=== PATIENT | female | born 1945 | race Caucasian/White ===

== ENCOUNTER 2024-01-30 16:47 | Inpatient (IN) | payer OTHER ==
[~2024-01-30] VITALS: Ht 165.1 cm; Wt 52.6 kg
[2024-01-30 00:42] VITALS: BP 101/48; PULSE 96; RESP 20; TEMP 98.4; O2SAT 93
[2024-01-30 18:01] LABS: Hematocrit 25.6 % (36.0-46.0); Hemoglobin 8.6 g/dL (12.2-16.2); Mean Corpuscular Hemoglobin 29.3 pg (28.0-32.0); Mean Corpuscular Hgb Conc. 33.6 g/dL (32.0-36.0); Mean Corpuscular Volume 87.4 fL (80.0-100.0); Platelet Count (auto) 245 10^3/uL (140-450); Red Blood Cells 2.93 10^6/uL (4.0-5.20); Red Cell Distribution Width 15.2 % (11.8-14.3); White Blood Cell 16.5 10^3/uL (4.4-10.8)
--- NOTE | 2024-01-30 18:04 | ED.PDOC ---
History of Present Illness HPI Comments This is an 78-year-old female who comes in with chief complaint of generalized weakness. The patient states that the symptoms have been going on since Friday. The patient had some diarrhea that has been persistent all day. She did notice some blood in her stool. She is complaining of some abdominal pain and body pain. EN route, the paramedics stated that the patient's oxygen saturation was 81% on room air. The patient was having some shortness a breath as well as a cough. The patient was then placed on 8 L of a non-rebreather by the paramedics and her oxygen saturation went up to 99%. EN route, the patient's Accu-Chek was also 281. There is no fever. Upon arrival, the patient is able to give us her medical history. She states that she also was diagnosed with liver cancer in February of last year. She lives by herself but she was staying with one of her family members when she was transported to our facility. Chief Complaint: General Weakness Time Seen by MD: 17:16 Reviewed Notes: Nurses Notes, [place] Brushing Machine Operator Notes, Medications, Allergies (No allergies to medications) Information Source: Patient, Emergency Med Personnel Mode of Arrival: EMS Severity: Moderate Timing: Days Duration: Since onset Prehospital treatment: Oxygen Past Medical History PAST MEDICAL HISTORY: Cancer (Renal cancer, liver cancer), High Lipids, HTN Surgical History (Other): Left nephrectomy GREEN BUILDING ARCHITECT History: No Pertinent GREEN BUILDING ARCHITECT History Family History Family History: No family hx of Cancer, No family hx of DM, No family hx of HTN Social History Smoker: Non-Smoker Alcohol: Denies ETOH Use Drugs: Denies Drug Use Lives In: Home Constitutional: reports: weakness; denies: chills, diaphoresis, fatigue, fever, malaise, sweats, others EENTM: denies: blurred vision, double vision, ear bleeding, ear discharge, ear drainage, ear pain, ear ringing, eye pain, eye redness, hearing loss, mouth pain, mouth swelling, nasal discharge, nose bleeding, nose congestion, nose pain, photophobia, tearing, throat pain, throat swelling, voice changes, others Respiratory: reports: cough, shortness of breath; denies: hemoptysis, orthopnea, SOB at rest, SOB with excertion, stridor, wheezing, others Cardiovascular: denies: chest pain, dizzy spells, diaphoresis, Dyspnea on exertion, edema, irregular heart beat, left arm pain, lightheadedness, palpitations, PND, syncope, others Gastrointestinal: reports: diarrhea; denies: abdomen distended, abdominal pain, blood streaked bowels, constipated, dysphagia, difficulty swallowing, hemat emesis, melena, nausea, poor appetite, poor fluid intake, rectal bleeding, rectal pain, vomiting, others Genitourinary: denies: abnormal vagina bleeding, burning, dyspareunia, dysuria, flank pain, frequency, hematuria, incontinence, pain, , vagina discharge, urgency, others Neurological: denies: dizziness, fainting, headache, left sided numbness, left sided weakness, numbness, paresthesia, pre-existing deficit, right sided numbness, right sided weakness, seizure, speech problems, tingling, tremors, weakness, others Musculoskeletal: denies: back pain, gout, joint pain, joint swelling, muscle pain, muscle stiffness, neck pain, others Integumetry: denies: bruises, change in color, change in hair/nails, dryness, laceration, lesions, lumps, rash, wounds, others Allergic/Immunocompromised: denies: Difficulty Healing, Frequent Infections, Hives, Itching, others Hematologic/Lymphatic: denies: anemia, blood clots, easy bleeding, easy bruising, swollen glands, others Endocrine: denies: excessive hunger, excessive sweating, excessive thirst, excessive urination, flushing, intolerance to cold, intolerance to heat, unexplained weight gain, unexplained weight loss, others Psychiatric: denies: anxiety, bipolar disorder, depression, hopeless, panic disorder, schizophrenia, sleepless, suicidal, others Physical Exam General Appearance: Moderate Distress HEENT: Pale Conjuntivae (L), Pale Conjuntivae (R), Pharynx Normal, TMs Normal Neck: Full Range of Motion, Non-Tender, Normal, Normal Inspection Respiratory: Chest Non-Tender, Lungs Clear, No Accessory Muscle Use, No Respiratory Distress, Normal Breath Sounds Cardiovascular: No Edema, No JVD, No Murmur, No Gallop, Normal Peripheral Pulses, Regular Rate/Rhythm Breast Exam: Deferred Gastrointestinal: No Organomegaly, Non Tender, No Pulsatile Mass, Normal Bowel Sounds, Soft Genitalia: Deferred Pelvic: Deferred Rectal: Deferred Extremities: No calf tenderness, Normal capillary refill, No pedal edema, Pedal edema Musculoskeletal : Apperance: Normal Neurologic: Alert, central stores attendant II-XII nml as Tested, Motor Weakness, Normal Affect, Normal Mood, No Sensory Deficits Cerebellar Function: Normal Reflexes: Normal Skin: Dry, Normal Color, Warm Lymphatic: No Adenopathy Was a procedure done? Was a procedure done?: No EKG EKG : Pulse Rate (adult): 74 [place]: Normal Cardiac Rhythm: NSR Block: None Hypertrophy: LVH ST: Nonsp Differential Dx Considerations may include: Electrolyte imbalance, metabolic acidosis, hyperkalemia, dehydration X-Ray, Labs, Meds, VS Vital Signs Date Time Temp Pulse Resp B/P (MAP) Pulse Ox O2 Delivery O2 Flow Rate FiO2 01/30/24 19:56 122/57 01/30/24 19:25 97.5 74 20 112/57 (75) 92 97.5 01/30/24 19:25 74 20 92 Non-Rebreather 8 N/A 01/30/24 18:46 72 15 97 Non-Rebreather 8 N/A 01/30/24 18:28 74 01/30/24 18:00 72 15 113/52 (72) 97 01/30/24 17:00 97.7 74 19 134/64 (87) 99 01/30/24 16:48 74 Lab Test 01/30/24 19:10 01/30/24 18:58 01/30/24 18:27 01/30/24 17:43 Range/Units Urine Color Light-yellow Yellow Urine Clarity Clear Clear Urine pH 5.0 5.0-9.0 Urine Specific [place] 1.015 1.001-1.035 Urine Protein Negative Negative Urine Ketones Negative Negative Urine Blood 1+ H Negative /uL Urine Nitrite Negative Negative Urine Bilirubin Negative Negative Urine Urobilinogen Normal Negative mg/dL Urine Leukocyte Esterase 1+ Negative /uL Urine RBC 2 0 - 4 /hpf Urine WBC 11 0 - 5 /hpf Urine Squamous Epithelial Cells Few <5 /hpf Urine Bacteria Few H None Seen /hpf Urine Hyaline Casts Few 0 - 2 /lpf Urine Glucose Normal Normal mg/dL POC Glucose 234 H 70-106 mg/dl Influenza Type A Antigen Negative Negative Influenza Type B Antigen Negative Negative SARS-CoV-2 Antigen (Rapid) Negative NEGATIVE White Blood Count 16.5 H 4.4-10.8 10^3/uL Red Blood Count 2.93 L 4.0-5.20 10^6/uL Hemoglobin 8.6 L 12.2-16.2 g/dL Hematocrit 25.6 L 36.0-46.0 % Mean Corpuscular Volume 87.4 80.0-100.0 fL Mean Corpuscular Hemoglobin 29.3 28.0-32.0 pg Mean Corpuscular Hemoglobin Concent 33.6 32.0-36.0 g/dL Red Cell Distribution Width 15.2 H 11.8-14.3 % Platelet Count 245 140-450 10^3/uL Mean Platelet Volume 7.9 6.9-10.8 fL Neutrophils (%) (Auto) 37.0-80.0 % Lymphocytes (%) (Auto) 10.0-50.0 % Monocytes (%) (Auto) 0.0-12.0 % Basophils (%) (Auto) 0.0-2.0 % Neutrophils # (Auto) 1.6-8.6 10 ^3/uL Lymphocytes # (Auto) 0.4-5.4 10 ^3/uL Monocytes # (Auto) 0-1.3 10 ^3/uL Differential Total Cells Counted 100.0 100 Neutrophils % (Manual) 96 H 37.0-80.0 Band Neutrophils % (Manual) 0 Lymphocytes % (Manual) 2 L 10.0-50.0 Monocytes % (Manual) 2 0-12 Eosinophils % (Manual) 0 0-7 Basophils % (Manual) 0 0.0-2.0 Metamyelocytes % (manual) 0 Myelocytes % (Manual) 0 Promyelocytes % (Manual) 0 Blast Cells % (Manual) 0 Reactive Lymphocytes 0 Platelet Estimate Adequate Sodium Level 127 L 136-145 mmol/L Potassium Level 6.0 *H 3.5-5.1 mmol/L Chloride Level 99 98-107 mmol/L Carbon Dioxide Level 24 20-31 mmol/L Anion Gap 4 L 5-15 Blood Urea Nitrogen 85 *H 9-23 mg/dL Creatinine 1.92 H 0.550-1.02 mg/dL Glomerular Filtration Rate Calc 26 >90 mL/min BUN/Creatinine Ratio 44.3 H 10.0-20.0 Serum Glucose 270 H 74-106 mg/dL Calcium Level 10.3 8.7-10.4 mg/dL Current Medications Medications (Trade) Dose Ordered Sig/Porfirio Route Start Time Stop Time Status Last Admin Sodium Bicarbonate 50 ml ONCE ONCE IV 01/30/24 18:30 01/30/24 18:31 DC 01/30/24 19:56 Calcium Gluconate/ Sodium Chloride 50 ml @ 100 mls/hr ONCE ONCE IV 01/30/24 18:30 01/30/24 18:59 DC 01/30/24 18:37 Insulin Human Regular (InsuLIN R) 5 units ONCE ONCE IV 01/30/24 18:30 01/30/24 18:31 DC 01/30/24 19:48 Dextrose 50 ml ONCE ONCE IV 01/30/24 18:30 01/30/24 18:31 DC 01/30/24 19:48 Furosemide (Lasix Injection) 40 mg ONCE ONCE IV 01/30/24 18:30 01/30/24 18:39 DC 01/30/24 19:56 The patient's CBC shows an elevated white blood cell count of 16.5 The hemoglobin is 8.6 and hematocrit is 25.6 The chemistry panel shows hyperkalemia at 6.0 The patient was hyponatremic at 127 The BUN is 85 and the creatinine is 1.92 The patient is being admitted to the hospitalist For the potassium, the patient was given one amp of D50 and the patient was also given insulin 5 units IV push The patient was given calcium as well as sodium bicarbonate The patient was being admitted at this time The chest x-ray shows: IMPRESSION: Cardiomegaly with pulmonary congestion and edema. Pneumonia cannot be excluded. HS:Y The patient was given Lasix 40 mg IV push The patient was being admitted at this time We did call [place] and they gave authorization for admission The authorization #[id number] Images Reviewed?: Images reviewed and evaluated by me Time of 1ST Reevaluation: 18:20 Reevaluation 1ST: Unchanged Patient Education/Counseling: Diagnosis, Treatment, Prognosis Family Education/Counseling: No Family Present Departure 1 Departure Time of Disposition: 18:20 Impression: Primary Impression: Generalized weakness Additional Impressions: Hyperkalemia Acute renal failure Qualified Codes: N17.1 - Acute kidney failure with acute cortical necrosis Acute on chronic diastolic heart failure Disposition: ADMITTED INPATIENT Admit to: [facility] Condition: Fair Critical Care Note Critical Care Time?: Yes (35 min-critical care time only) Stability Stability form required: Yes Unstable for transfer: Telemetry monitoring (Telemetry monitoring required), ED Physician Assesment (Clinical assesment) Heart Score Heart Score: Heart Score Response (Comments) Value History Slightly Suspicious 0 EKG Normal 0 Age >65 2 Risk Factors 1 or 2 risk factors 1 Troponin Normal limit 0 Total 3 LADY MATA MD Jan 30, 2024 18:04
[2024-01-30 18:07] LABS: Chloride 99 mmol/L (98-107); Sodium 127 mmol/L (136-145)
[2024-01-30 18:08] LABS: Anion Gap 4 (5-15); Calcium 10.3 mg/dL (8.7-10.4); Carbon Dioxide 24 mmol/L (20-31)
[2024-01-30 18:09] LABS: Band Neutrophils % (manual) 0; Basophils % (manual) 0 (0.0-2.0); Blast Cells 0; Eosinophils % (manual) 0 (0-7); Metamyelocytes % 0; Myelocytes % 0; Promyelocytes % 0; Reactive Lymphocytes 0
--- NOTE | 2024-01-30 18:09 | DVH ---
EXAM: XR Chest, 1 View CLINICAL INDICATION: sob TECHNIQUE: Frontal view of the chest. COMPARISON: None FINDINGS: LUNGS AND PLEURAL SPACES: See below. HEART: Cardiomegaly with pulmonary congestion and edema. Pneumonia cannot be excluded. MEDIASTINUM: Unremarkable. Normal mediastinal contour. BONES/JOINTS: Unremarkable. No acute fracture. OTHER FINDINGS: . . IMPRESSION: Cardiomegaly with pulmonary congestion and edema. Pneumonia cannot be excluded. HS:Y
[2024-01-30 18:13] LABS: BUN/Creatinine Ratio 44.3 (10.0-20.0); Glucose 270 mg/dL (74-106)
[2024-01-30 18:16] LABS: Blood Urea Nitrogen 85 mg/dL (9-23)
[2024-01-30] MEDS: CALCIUM GLUC 1,000mg/50ml-NS 50 ML IV ONE ×2 (18:37→22:55)
[2024-01-30 18:41] LABS: Lymphocytes % (manual) 2 (10.0-50.0); Monocytes % (manual) 2 (0-12); Platelet Estimate Adequate
[2024-01-30 18:46] VITALS: PULSE 72; RESP 15; O2SAT 97
[2024-01-30 19:24] LABS: COVID19 ANTIGEN SOFIA FIA NEGATIVE (NEGATIVE); Rapid Influenza A Negative (Negative); Rapid Influenza B Negative (Negative)
[2024-01-30 19:25] VITALS: PULSE 74; RESP 20; O2SAT 92
[2024-01-30] MEDS: InsuLIN REG 1unit/0.01ml Soln (100units/ml) IV ONE (19:48)
[2024-01-30] MEDS: DEXTROSE (50%) 50ML SYRG IV ONE ×2 (19:48→23:00)
[2024-01-30 19:52] LABS: Urine Bacteria FEW /hpf (None Seen); Urine Blood 1+ /uL (Negative); Urine Clarity Clear (Clear); Urine Color Light-Yellow (Yellow); Urine Hyaline Cast FEW /lpf (0 - 2); Urine Protein, UAD Negative (Negative); Urine Specific Gravity 1.015 (1.001-1.035); Urine Urobilinogen Normal (Negative); Urine WBC 11 /hpf (0 - 5)
[2024-01-30] MEDS: FUROSEMIDE 40 MG/4 ML VIAL IV ONE (19:56)
[2024-01-30] MEDS: SODIUM BICARB 8.4% 50Meq/50ml SYR Vial IV ONE (19:56)
[2024-01-30] MEDS ORDERED: ACETAMINOPHEN 325 MG TAB PO PRN (21:30)
[2024-01-30] MEDS ORDERED: MORPHINE SULFATE INJ 2 MG/ml SYRG IV PRN (21:30)
[2024-01-30] MEDS ORDERED: NITROGLYCERIN 0.4 MG SL TAB SL PRN (21:30)
[2024-01-30] MEDS: SODIUM ZIRCONIUM CYCL 10 GM PAK PO ONE (21:59)
[2024-01-30] MEDS: SODIUM CHLOR 0.9% PF (SALINE LOCK) 10ML VIAL/SYR IV SCH (22:06)
[2024-01-30 22:13] LABS: Alanine Aminotransferase 17 U/L (7-40); Albumin 3.8 g/dL (3.2-4.8); Alkaline Phosphatase 41 U/L (46-116); Anion Gap 8 (5-15); Aspartate Aminotransferase 36 U/L (13-40); Bilirubin, Total 0.3 mg/dL (0.2-1.0); Calcium 10.3 mg/dL (8.7-10.4); Carbon Dioxide 23 mmol/L (20-31); Chloride 98 mmol/L (98-107); Glucose 237 mg/dL (74-106); Potassium 5.4 mmol/L (3.5-5.1); Sodium 129 mmol/L (136-145); Total Protein 6.3 g/dL (5.7-8.2)
[2024-01-30 22:30] LABS: BUN/Creatinine Ratio 45.5 (10.0-20.0)
[2024-01-30 22:40] LABS: Blood Urea Nitrogen 87 mg/dL (9-23)
[2024-01-30] MEDS: FUROSEMIDE 20 MG/2 ML VIAL IV ONE (22:56)
[2024-01-30] MEDS: ALBUTEROL SULF 2.5 MG/0.5ML(0.5%) NEB SOLN NEB ONE (23:03)
[2024-01-30] MEDS: ALBUTEROL SULF 2.5 MG/0.5ML(0.5%) NEB SOLN ONE (23:04)
[2024-01-30 23:13] LABS: INR 0.97 (0.9-1.15); Partial Thromboplastin Time 20.8 SEC (24.5-34.5); Prothrombin Time 10.3 sec (9.3-11.8)
[2024-01-30] MEDS: ACCU-CHEK COMFORT CURVE STRIP VI ONE (23:16)
[2024-01-30] MEDS: InsuLIN REG 1unit/0.01ml Soln (100units/ml) SC ONE (23:18)
[2024-01-30 23:21] LABS: Amphetamine Screen, Urine Neg (NEGATIVE); Benzodiazephine Screen, Urine Neg (NEGATIVE); Cannabinoid Screen, Urine Neg (NEGATIVE); Cocaine Screen, Urine Neg (NEGATIVE); Opiate Scree,Urine Pos (NEGATIVE); Phencyclidine Screen, Urine Neg (NEGATIVE)
[2024-01-30 23:30] LABS: Barbiturate Scree,Urine Neg (NEGATIVE)
[2024-01-30 23:39] LABS: Lactic Acid w/Reflex 4.6 mmol/L (0.4-2.0)
[2024-01-30 23:40] LABS: Protein, Urine 16.3 mg/dL (1-14)
[2024-01-30 23:42] LABS: Creatinine, Urine 43.44 mg/dL (30.0-125.0)
--- NOTE | 2024-01-30 23:49 | DVHHPRES ---
History of Present Illness Resident Creating Document: KEISHA MONTANO RESIDENT History of Present Illness SHYAM HAMLIN is 78 years old female with a PMH of HTN, HLD, left kidney cancer with liver metastasis status post left nephrectomy presented to the ED with the chief complaints of shortness of breathe for the last 3 days. Patient reported she has been feeling very weak since she started immunotherapy. Patient reported for the last 3 days she has been having no energy for to eat, walk, associated with worsening of shortness of breath and generalized weakness without fever, nausea, vomiting, chest pain, diaphoresis and other associated symptoms. Patient also reported she had some diarrhea , noted some blood in stool by her daughter earlier to admission, diagnosed as C diff 4 weeks ago. Past Medical History HTN, HLD, left kidney cancer with liver metastasis Past Surgical History status post left nephrectomy Family History Liver cancer in mother, stroke in father Past Social History Lives alone at home. Denies smoking, alcohol and other drug abuse Review of Systems Constitutional: Yes: Weakness, Malaise; No: Fever, Chills, Sweats, Other Eyes: No: Pain, Vision change, Conjunctivae inflammation, Eyelid inflammation, Other, Redness ENT: No: Ear pain, Ear discharge, Nose pain, Nose discharge, Nose congestion, Mouth pain, Mouth swelling, Throat pain, Throat swelling, Other Respiratory: Cough, Shortness of breath, SOB with excertion Cardiovascular: No: Chest Pain, Palpitations, Orthopnea, Paroxysmal Noc. Dyspnea, Edema, Lt Headedness, Other Gastrointestinal: Diarrhea Genitourinary: No Dysuria, No Frequency, No Incontinence, No Hematuria, No Retention, No Other Musculoskeletal: No: other, neck pain, shoulder pain, arm pain, back pain, hand pain, leg pain, foot pain Skin: No: Rash, Lesions, Jaundice, Bruising, Other Neurological: No: Weakness, Numbness, Incoordination, Change in speech, Confusion, Seizures, Other Allergies: Coded Allergies: No Known Drug Allergy (Verified Allergy, Unknown, 01/30/24) Medications Current Medications Medications Dose Ordered Sig/Porfirio Route Start Time Stop Time Status Last Admin Dose Admin Sodium Chloride 10 ml Q8HR IV 01/30/24 22:00 01/30/24 22:06 10 ML Ondansetron HCl 4 mg Q4HP PRN IV 01/30/24 21:30 Acetaminophen 650 mg Q6HP PRN PO 01/30/24 21:30 Morphine Sulfate 2 mg Q4HPRN PRN IV 01/30/24 21:30 Nitroglycerin 0.4 mg Q5MINP PRN SL 01/30/24 21:30 Morphine Sulfate 2 mg Q30M PRN IV 01/30/24 21:30 Ceftriaxone Sodium 50 ml @ 100 mls/hr DAILY@09 IV 01/30/24 23:00 Azithromycin 250 ml @ 125 mls/hr DAILY IV 01/31/24 10:00 Exam Vital Signs Vital Signs Date Time Temp Pulse Resp B/P (MAP) Pulse Ox O2 Delivery O2 Flow Rate FiO2 01/30/24 22:56 111/53 01/30/24 22:20 78 19 98 01/30/24 19:25 97.5 97.5 01/30/24 19:25 Non-Rebreather 8 N/A Exam Pt is lying on bed General Appearance: Alert, Oriented X3, Cooperative, moderate distress HEENT: Atraumatic, Mucous membranes moist/pink Respiratory: Clear to auscultation, non-rebreather Cardiovascular: Regular rate, Normal S1, Normal S2, No murmurs Abdominal: Active bowel sounds, Soft, no distention, no tenderness Extremities: No edema, Normal pulses, No tenderness/swelling Skin: No Significant rash, except past surgical scars Neuro: Normal speech, sensorimotor deficits none Psych/Mental Status: Mental status NL, Mood NL Nurse was there as sharperone during examination Labs/Xrays Labs Test 01/30/24 23:15 01/30/24 21:35 01/30/24 19:10 01/30/24 18:27 Range/Units POC Glucose 196 H 70-106 mg/dl Prothrombin Time 10.3 9.3-11.8 sec Prothrombin Time INR 0.97 0.9-1.15 Activated Partial Thromboplast Time 20.8 L 24.5-34.5 SEC Sodium Level 129 L 136-145 mmol/L Potassium Level 5.4 H 3.5-5.1 mmol/L Chloride Level 98 98-107 mmol/L Carbon Dioxide Level 23 20-31 mmol/L Anion Gap 8 5-15 Blood Urea Nitrogen 87 *H 9-23 mg/dL Creatinine 1.91 H 0.550-1.02 mg/dL Glomerular Filtration Rate Calc 26 >90 mL/min BUN/Creatinine Ratio 45.5 H 10.0-20.0 Serum Glucose 237 H 74-106 mg/dL Hemoglobin A1c 7.3 H <5.7 % A1C Lactic Acid Level 4.6 *H 0.4-2.0 mmol/L Calcium Level 10.3 8.7-10.4 mg/dL Total Bilirubin 0.3 0.2-1.0 mg/dL Aspartate Amino Transferase (AST) 36 13-40 U/L Alanine Aminotransferase (ALT) 17 7-40 U/L Alkaline Phosphatase 41 L 46-116 U/L Total Protein 6.3 5.7-8.2 g/dL Albumin 3.8 3.2-4.8 g/dL Thyroid Stimulating Hormone (TSH) 0.86 0.55-4.78 uIU/mL Urine Color Light-yellow Yellow Urine Clarity Clear Clear Urine pH 5.0 5.0-9.0 Urine Specific [place] 1.015 1.001-1.035 Urine Protein Negative Negative Urine Ketones Negative Negative Urine Blood 1+ H Negative /uL Urine Nitrite Negative Negative Urine Bilirubin Negative Negative Urine Urobilinogen Normal Negative mg/dL Urine Leukocyte Esterase 1+ Negative /uL Urine RBC 2 0 - 4 /hpf Urine WBC 11 0 - 5 /hpf Urine Squamous Epithelial Cells Few <5 /hpf Urine Bacteria Few H None Seen /hpf Urine Hyaline Casts Few 0 - 2 /lpf Urine Sodium 45 40-220 mmol/L Urine Glucose Normal Normal mg/dL Urine Total Protein 16.3 H 1-14 mg/dL Urine Opiates Screen Pos NEGATIVE Urine Fentanyl Screen Neg NEGATIVE Urine Barbiturates Screen Neg NEGATIVE Urine Phencyclidine Screen Neg NEGATIVE Urine Amphetamines Screen Neg NEGATIVE Urine Benzodiazepines Screen Neg NEGATIVE Urine Cocaine Screen Neg NEGATIVE Urine Cannabinoids Screen Neg NEGATIVE Influenza Type A Antigen Negative Negative Influenza Type B Antigen Negative Negative SARS-CoV-2 Antigen (Rapid) Negative NEGATIVE Test 01/30/24 17:43 Range/Units White Blood Count 16.5 H 4.4-10.8 10^3/uL Red Blood Count 2.93 L 4.0-5.20 10^6/uL Hemoglobin 8.6 L 12.2-16.2 g/dL Hematocrit 25.6 L 36.0-46.0 % Mean Corpuscular Volume 87.4 80.0-100.0 fL Mean Corpuscular Hemoglobin 29.3 28.0-32.0 pg Mean Corpuscular Hemoglobin Concent 33.6 32.0-36.0 g/dL Red Cell Distribution Width 15.2 H 11.8-14.3 % Platelet Count 245 140-450 10^3/uL Mean Platelet Volume 7.9 6.9-10.8 fL Neutrophils (%) (Auto) 37.0-80.0 % Lymphocytes (%) (Auto) 10.0-50.0 % Monocytes (%) (Auto) 0.0-12.0 % Basophils (%) (Auto) 0.0-2.0 % Neutrophils # (Auto) 1.6-8.6 10 ^3/uL Lymphocytes # (Auto) 0.4-5.4 10 ^3/uL Monocytes # (Auto) 0-1.3 10 ^3/uL Differential Total Cells Counted 100.0 100 Neutrophils % (Manual) 96 H 37.0-80.0 Band Neutrophils % (Manual) 0 Lymphocytes % (Manual) 2 L 10.0-50.0 Monocytes % (Manual) 2 0-12 Eosinophils % (Manual) 0 0-7 Basophils % (Manual) 0 0.0-2.0 Metamyelocytes % (manual) 0 Myelocytes % (Manual) 0 Promyelocytes % (Manual) 0 Blast Cells % (Manual) 0 Reactive Lymphocytes 0 Platelet Estimate Adequate Assessment/Plan Assessment/Plan # Acute hypoxic respiratory failure # ? Acute Gram-positive/negative bacterial PNA # ? Sepsis likely due to PNA vs UTI -evident on CXR -ordered sputum and urine culture -currently on Rocephin and azithromycin -currently on non-rebreather at 8 L O2 -monitor lab -monitor per cardio respiratory compromise # Acute complicated UTI -evident on urinalysis -currently on Rocephin -ordered urine culture # Hyperkalemia -ordered hyperkalemia protocol -monitor lab # Hyponatremia -monitor lab -ordered serum and urine studies # CECILIA likely on VMN on CKD 3 # left kidney cancer status post nephrectomy -monitor lab -consulted nephrology # Hyperglycemia without DM -currently on mild ISS -ordered HbA1c # rule out C diff #? Lower GI bleed -ordered C diff toxin -ordered stool occult blood SCD for now No gi ppx Cardiac diet for now Discussed with the patient for more than 27 minutes: Full code status Case management discussed with Dr. Hilliard, patient and nurse. Dr. Hilliard recommended BiPAP for the night, planned intubation if patient desaturates. Plan discussed with: Patient My Orders Orders - KEISHA MONTANO RESIDENT Procedure Category Date Status Time Allergies ZOILA 01/30/24 In Process 21:26 Code Status CODE 01/30/24 Transmitted 21:26 Sodium Chloride Lock PHA 01/30/24 In Process (Saline Lock Ns) 22:00 Ondansetron Hcl PHA 01/30/24 In Process (Zofran) 21:30 Complete Blood Count LAB 01/31/24 Verified 04:00 Comprehensive LAB 01/31/24 Verified Metabolic Panel 04:00 Echo 2d Mode Cardiac US 01/30/24 Logged DOP 21:26 Acetaminophen Tablet PHA 01/30/24 In Process (Tylenol Tablet) 21:30 Clear Liq Diet DIET 01/31/24 Transmitted Breakfast Morphine Sulfate PHA 01/30/24 In Process Injection 21:30 Sequential ZOILA 01/30/24 In Process Compression Device Nitroglycerin PHA 01/30/24 In Process Sublingual (Ntrostat 21:30 Morphine Sulfate PHA 01/30/24 In Process Injection 21:30 Oxygen By Nasal RT 01/30/24 Transmitted Cannula 21:26 Stat Ekg For Chest ZOILA 01/30/24 In Process Pain 21:26 Notify Md Of Changes ZOILA 01/30/24 In Process From Base 21:26 Governor Assembler For ZOILA 01/30/24 In Process 24 Hours 21:26 Emergency Dysrhythmia ZOILA 01/30/24 In Process Protocol 21:26 Rhythm Strips Once ZOILA 01/30/24 In Process Every Shift 21:26 Admit ADMIT 01/30/24 Transmitted 22:43 Potassium LAB 01/31/24 Verified 12:44 Vitamin D, 25-Hydroxy LAB 01/30/24 In Process 22:47 Vitamin B12 LAB 01/30/24 In Process 22:47 Stool Occult Blood LAB 01/30/24 Logged 22:47 Ceftriaxone 1gm/50ml PHA 01/30/24 In Process D5w (Rocephin) 23:00 B-Type Natriuretic LAB 01/30/24 In Process Peptide 22:51 Urine Bacterial MABEL 01/30/24 In Process Culture 22:51 Azithromycin 500mg/ PHA 01/31/24 In Process 250ml (Zithromax 50 10:00 Respiratory Culture MABEL 01/30/24 Logged W/ Gs 22:57 *[facility] CONS 01/30/24 Transmitted -[place] 23:01 Kidney US 01/30/24 Taken 23:06 Magnesium LAB 01/30/24 In Process 23:10 Phosphorus LAB 01/30/24 In Process 23:10 Osmolality, Serum LAB 01/30/24 In Process 23:10 Urine Sodium LAB 01/30/24 In Process 23:14 Osmolality Urine LAB 01/30/24 In Process 23:14 Urine Creatinine LAB 01/30/24 In Process 23:14 Urine Protein LAB 01/30/24 In Process 23:14 KEISHA MONTANO RESIDENT Jan 30, 2024 23:49
[2024-01-30 23:54] LABS: Magnesium 2.1 mg/dL (1.6-2.6)
[2024-01-30 23:55] LABS: Phosphorus 4.7 mg/dL (2.4-5.1)
[2024-01-31] VITALS (55 sets, daily range): BP systolic 63–158; BP diastolic 30–114; PULSE 79–137; RESP 16–41; TEMP 97.7–100; O2SAT 91–100
[2024-01-31] MEDS: ONDANSETRON HCL 4 MG/2 ML VIAL IV PRN (00:09)
[2024-01-31] MEDS: MORPHINE SULFATE INJ 2 MG/ml SYRG IV PRN (00:09)
[2024-01-31] MEDS: cefTRIAXone 1GM/50ML D5W 50 ML IV SCH (00:10)
--- NOTE | 2024-01-31 00:27 | DVH ---
US KIDNEY HISTORY: bun elevated, ckd COMPARISON: None TECHNIQUE: Transverse and longitudinal grayscale and color Doppler images were obtained of the kidney s and bladder. FINDINGS: Right kidney: Size: 9.9 cm Cortical thickness: Normal Echogenicity: Normal Stones: None Masses: None Hydronephrosis: None Ureters: Not well visualized. Other: None Left kidney: Not seen. Bladder: Decompressed with a [place]. Other: None. IMPRESSION: Right kidney appears unremarkable.
[2024-01-31] MEDS: DOXYCYCLINE 100MG/250ML 250 ML IV SCH (01:00)
[2024-01-31] MEDS ORDERED: HYDR50TA47 PO (03:06)
[2024-01-31] MEDS ORDERED: ZOFR4T PO (03:06)
[2024-01-31] MEDS ORDERED: AMLO1TAB23 PO (03:06)
[2024-01-31] MEDS ORDERED: ATE50T PO (03:06)
[2024-01-31] MEDS ORDERED: CYA100I PO (03:06)
[2024-01-31] MEDS ORDERED: PANT1INJ3 PO (03:06)
[2024-01-31] MEDS ORDERED: PRE1T PO (03:06)
[2024-01-31 05:05] LABS: Basophils # (auto) 0 10 ^3/uL (0-0.2); Basophils % (auto) 0.1 % (0.0-2.0); Eosinophils # (auto) 0 10 ^3/uL (0-0.8); Eosinophils % (auto) 0.1 % (0.0-7.0); Hematocrit 22.5 % (36.0-46.0); Hemoglobin 7.4 g/dL (12.2-16.2); Lymphocytes % (auto) 5.9 % (10.0-50.0); Mean Corpuscular Volume 87.8 fL (80.0-100.0); Monocytes # (auto) 0.7 10 ^3/uL (0-1.3); Neutrophils # (auto) 15.6 10 ^3/uL (1.6-8.6); Neutrophils % (auto) 89.9 % (37.0-80.0); Nucleated Red Blood Cells % 0.4 %; Platelet Count (auto) 236 10^3/uL (140-450); Red Blood Cells 2.57 10^6/uL (4.0-5.20); Red Cell Distribution Width 14.9 % (11.8-14.3); White Blood Cell 17.3 10^3/uL (4.4-10.8)
[2024-01-31 05:23] LABS: Alanine Aminotransferase 17 U/L (7-40); Albumin 3.8 g/dL (3.2-4.8); Alkaline Phosphatase 41 U/L (46-116); Anion Gap 13 (5-15); Aspartate Aminotransferase 36 U/L (13-40); BUN/Creatinine Ratio 42.9 (10.0-20.0); Bilirubin, Total 0.2 mg/dL (0.2-1.0); Calcium 10.2 mg/dL (8.7-10.4); Carbon Dioxide 23 mmol/L (20-31); Chloride 93 mmol/L (98-107); Glucose 199 mg/dL (74-106); Potassium 4.2 mmol/L (3.5-5.1); Sodium 129 mmol/L (136-145); Total Protein 6.3 g/dL (5.7-8.2)
[2024-01-31 05:39] LABS: Blood Urea Nitrogen 81 mg/dL (9-23)
[2024-01-31 09:02] LABS: % Iron Saturation 12.1 % (15-50)
[2024-01-31] MEDS: CEFEPIME 1GM/ 50ML 50 ML IV SCH (09:38)
[2024-01-31 09:40] LABS: Base Excess -2.2 mmol/L (-2.0-3.0)
[2024-01-31] MEDS ORDERED: AZITHROMYCIN 500MG/ 250ML 250 ML IV SCH (10:00)
[2024-01-31] MEDS: SODIUM CHLORIDE 0.9% 1,000 ML IV SCH (10:30)
--- NOTE | 2024-01-31 10:33 | DVHINCON2 ---
Date of service: Jan 31, [address] Farrar Reason for Consultation Acute kidney injury History of Present Illness Patient is 78-year-old female with past medical history significant for renal cell carcinoma status post left nephrectomy, High Lipids, and HTN is admitted for generalized weakness, dizziness and diarrhea for three days. On admission patient found to have elevated BUN creatinine nephrology is consulted for acute kidney injury Past Medical History PAST MEDICAL HISTORY: Cancer (Renal cancer, liver cancer), High Lipids, HTN Past Surgical History Left nephrectomy 2019 Allergies: Coded Allergies: No Known Drug Allergy (Verified Allergy, Unknown, 01/30/24) Home Meds Reported Medications Hydralazine Hcl (Hydralazine Hcl) 50 Mg Tab, 1 TAB PO DAILY, #90 TAB 5 Refills 01/31/24 Prednisone (PREDNISONE) 1 Mg Tb, 4 TAB PO DAILY, #360 TAB 3 Refills 01/31/24 Pantoprazole Sodium (PANTOPRAZOLE SODIUM) 40 Mg Inj, 40 MG PO, INJ 01/31/24 Atenolol (TENORMIN TABLET) 50 Mg Tb, 1 TAB PO DAILY, #30 TAB 5 Refills 01/31/24 Amlodipine Besylate (Amlodipine Besylate) 10 Mg Tab, 1 TAB PO DAILY, #30 TAB 5 R efills 01/31/24 Ondansetron Odt 4MG Tab (ZOFRAN PO) 4 Mg Tb, 4 MG PO, TAB ODT TAB-DISSOLVE IN MOUTH, THEN SWALLOW 01/31/24 Vitamin B12 (Vitamin B-12) 1,000 Mcg/1 Ml Ij, 250 MCG PO, INJ 01/31/24 Current Medications Current Medications Medications (Trade) Dose Ordered Sig/Porfirio Route PRN Reason Start Time Stop Time Status Last Admin Sodium Chloride (Saline Lock Ns) 10 ml Q8HR IV 01/30/24 22:00 01/31/24 06:28 Ondansetron HCl (Zofran) 4 mg Q4HP PRN IV NAUSEA / VOMITING 01/30/24 21:30 01/31/24 00:09 Acetaminophen (Tylenol Tablet) 650 mg Q6HP PRN PO PAIN SCALE 1-3 OR TEMP>100.4 01/30/24 21:30 Morphine Sulfate 2 mg Q4HPRN PRN IV SEVERE PAIN (7-10 PAIN SCALE) 01/30/24 21:30 01/31/24 00:09 Nitroglycerin (Ntrostat Sublingual) 0.4 mg Q5MINP PRN SL FOR CHEST PAIN 01/30/24 21:30 Morphine Sulfate 2 mg Q30M PRN IV FOR CHEST PAIN 01/30/24 21:30 Ceftriaxone Sodium 50 ml @ 100 mls/hr DAILY@09 IV 01/30/24 23:00 01/31/24 07:05 DC 01/31/24 00:10 Azithromycin 250 ml @ 125 mls/hr DAILY IV 01/31/24 10:00 01/31/24 00:51 DC Cefepime HCl 50 ml @ 12.5 mls/hr DAILY IV 01/31/24 10:00 01/31/24 09:38 Doxycycline Hyclate 250 ml @ 125 mls/hr Q12H IV 01/31/24 01:00 01/31/24 01:00 Family History: Patient reports no known family medical history. Review of Systems All 12 item review of systems reviewed with the patient nonsignificant except what is mentioned in the history of present illness H&P Exam Vital Signs/I&O Vital Sign Date Time Temp Pulse Resp B/P (MAP) Pulse Ox O2 Delivery O2 Flow Rate FiO2 01/31/24 08:54 97.7 79 16 97/49 (65) 98 97.7 01/31/24 01:59 9.0 01/31/24 01:42 Facial BiPAP Mask 40 Intake and Output 01/30/24 01/31/24 19:00 07:00 Intake Total 50 ml 990 ml Output Total 1250 ml Balance 50 ml -260 ml Intake Oral 900 ml IV Total 50 ml 90 ml Output Urine Total 1250 ml Physical Exam Patient moderate respiratory distress nasal Oxymizer O2 supplement Lungs clear to auscultation bilaterally Cardiac exam regular rate and rhythm GI soft nontender Rivers catheter Extremities no clubbing cyanosis or edema Neuro nonfocal Labs/Diagnostic Data Labs/Diagnostic Data Laboratory Tests Test 01/31/24 09:30 01/31/24 04:30 01/31/24 00:50 01/30/24 23:15 Range/Units Blood Gas Specimen Type Arterial Blood Gas Sample Site Left radial Blood Gas Patient Temperature 37.0 Arterial Blood Date Drawn [id number] Arterial Blood pH 7.497 H 7.350-7.450 Arterial Blood Partial Pressure CO2 27.1 L 32.0-45.0 mmHg Arterial Blood Partial Pressure O2 51.8 *L 83.0-108.0 mmHg Arterial Blood HCO3 20.5 L 21.0-28.0 mmol/L Arterial Blood Oxygen Saturation 87.2 L 94.0-98.0 % Arterial Blood Base Excess -2.2 L -2.0-3.0 mmol/L Arterial Blood Oxyhemoglobin 86.2 L 94.0-98.0 % Arterial Blood Carboxyhemoglobin 0.7 0.5-1.5 % Arterial Blood Methemoglobin 0.5 0.0-1.5 % Alexei Test Yes Blood Gas Total Hemoglobin 7.80 L 12.0-16.0 g/dL Blood Gas Liter Flow 8.00 Blood Gas Modality Oxymizer FiO2 % 64.0 Blood Gas Critical Value Read Back Yes Blood Gas Notified Whom Blood Gas Notified Time [id number] Blood Gas Notified By Service Tech/Welder luisa White Blood Count 17.3 H 4.4-10.8 10^3/uL Red Blood Count 2.57 L 4.0-5.20 10^6/uL Hemoglobin 7.4 L 12.2-16.2 g/dL Hematocrit 22.5 #L 36.0-46.0 % Mean Corpuscular Volume 87.8 80.0-100.0 fL Mean Corpuscular Hemoglobin 29.0 28.0-32.0 pg Mean Corpuscular Hemoglobin Concent 33.0 32.0-36.0 g/dL Red Cell Distribution Width 14.9 H 11.8-14.3 % Platelet Count 236 140-450 10^3/uL Mean Platelet Volume 8.2 6.9-10.8 fL Neutrophils (%) (Auto) 89.9 H 37.0-80.0 % Lymphocytes (%) (Auto) 5.9 L 10.0-50.0 % Monocytes (%) (Auto) 4.0 0.0-12.0 % Eosinophils (%) (Auto) 0.1 0.0-7.0 % Basophils (%) (Auto) 0.1 0.0-2.0 % Neutrophils # (Auto) 15.6 H 1.6-8.6 10 ^3/uL Lymphocytes # (Auto) 1.0 0.4-5.4 10 ^3/uL Monocytes # (Auto) 0.7 0-1.3 10 ^3/uL Eosinophils # (Auto) 0 0-0.8 10 ^3/uL Basophils # (Auto) 0 0-0.2 10 ^3/uL Nucleated Red Blood Cells 0.4 % Sodium Level 129 L 136-145 mmol/L Potassium Level 4.2 3.5-5.1 mmol/L Chloride Level 93 L 98-107 mmol/L Carbon Dioxide Level 23 20-31 mmol/L Anion Gap 13 5-15 Blood Urea Nitrogen 81 *H 9-23 mg/dL Creatinine 1.89 H 0.550-1.02 mg/dL Glomerular Filtration Rate Calc 27 >90 mL/min BUN/Creatinine Ratio 42.9 H 10.0-20.0 Serum Glucose 199 H 74-106 mg/dL Calcium Level 10.2 8.7-10.4 mg/dL Iron Level 35 L 50-170 ug/dL Total Iron Binding Capacity 290 250-425 ug/dL Percent Iron Saturation 12.1 L 15-50 % Ferritin 124.4 10-291 ng/mL Total Bilirubin 0.2 0.2-1.0 mg/dL Aspartate Amino Transferase (AST) 36 13-40 U/L Alanine Aminotransferase (ALT) 17 7-40 U/L Alkaline Phosphatase 41 L 46-116 U/L Total Protein 6.3 5.7-8.2 g/dL Albumin 3.8 3.2-4.8 g/dL Lactic Acid Level 4.3 *H 0.4-2.0 mmol/L POC Glucose 196 H 70-106 mg/dl Test 01/30/24 21:35 01/30/24 19:10 01/30/24 18:58 01/30/24 18:27 Range/Units Prothrombin Time 10.3 9.3-11.8 sec Prothrombin Time INR 0.97 0.9-1.15 Activated Partial Thromboplast Time 20.8 L 24.5-34.5 SEC Sodium Level 129 L 136-145 mmol/L Potassium Level 5.4 H 3.5-5.1 mmol/L Chloride Level 98 98-107 mmol/L Carbon Dioxide Level 23 20-31 mmol/L Anion Gap 8 5-15 Blood Urea Nitrogen 87 *H 9-23 mg/dL Creatinine 1.91 H 0.550-1.02 mg/dL Glomerular Filtration Rate Calc 26 >90 mL/min BUN/Creatinine Ratio 45.5 H 10.0-20.0 Serum Glucose 237 H 74-106 mg/dL Hemoglobin A1c 7.3 H <5.7 % A1C Serum Osmolality 316 H 278-298 mOsm/kg Lactic Acid Level 4.6 *H 0.4-2.0 mmol/L Calcium Level 10.3 8.7-10.4 mg/dL Phosphorus Level 4.7 2.4-5.1 mg/dL Magnesium Level 2.1 1.6-2.6 mg/dL Total Bilirubin 0.3 0.2-1.0 mg/dL Aspartate Amino Transferase (AST) 36 13-40 U/L Alanine Aminotransferase (ALT) 17 7-40 U/L Alkaline Phosphatase 41 L 46-116 U/L B-Type Natriuretic Peptide 164.87 0-100 pg/mL Total Protein 6.3 5.7-8.2 g/dL Albumin 3.8 3.2-4.8 g/dL Vitamin B12 Level 1268 H 211-911 pg/mL Vitamin D 25-Hydroxy 38.6 30.0-100 ng/mL Thyroid Stimulating Hormone (TSH) 0.86 0.55-4.78 uIU/mL Urine Color Light-yellow Yellow Urine Clarity Clear Clear Urine pH 5.0 5.0-9.0 Urine Specific [place] 1.015 1.001-1.035 Urine Protein Negative Negative Urine Ketones Negative Negative Urine Blood 1+ H Negative /uL Urine Nitrite Negative Negative Urine Bilirubin Negative Negative Urine Urobilinogen Normal Negative mg/dL Urine Leukocyte Esterase 1+ Negative /uL Urine RBC 2 0 - 4 /hpf Urine WBC 11 0 - 5 /hpf Urine Squamous Epithelial Cells Few <5 /hpf Urine Bacteria Few H None Seen /hpf Urine Hyaline Casts Few 0 - 2 /lpf Urine Osmolality 508 mOsm/kg Urine Creatinine 43.44 30.0-125.0 mg/dL Urine Sodium 45 40-220 mmol/L Urine Glucose Normal Normal mg/dL Urine Total Protein 16.3 H 1-14 mg/dL Urine Opiates Screen Pos NEGATIVE Urine Fentanyl Screen Neg NEGATIVE Urine Barbiturates Screen Neg NEGATIVE Urine Phencyclidine Screen Neg NEGATIVE Urine Amphetamines Screen Neg NEGATIVE Urine Benzodiazepines Screen Neg NEGATIVE Urine Cocaine Screen Neg NEGATIVE Urine Cannabinoids Screen Neg NEGATIVE POC Glucose 234 H 70-106 mg/dl Influenza Type A Antigen Negative Negative Influenza Type B Antigen Negative Negative SARS-CoV-2 Antigen (Rapid) Negative NEGATIVE Test 01/30/24 17:43 Range/Units White Blood Count 16.5 H 4.4-10.8 10^3/uL Red Blood Count 2.93 L 4.0-5.20 10^6/uL Hemoglobin 8.6 L 12.2-16.2 g/dL Hematocrit 25.6 L 36.0-46.0 % Mean Corpuscular Volume 87.4 80.0-100.0 fL Mean Corpuscular Hemoglobin 29.3 28.0-32.0 pg Mean Corpuscular Hemoglobin Concent 33.6 32.0-36.0 g/dL Red Cell Distribution Width 15.2 H 11.8-14.3 % Platelet Count 245 140-450 10^3/uL Mean Platelet Volume 7.9 6.9-10.8 fL Neutrophils (%) (Auto) 37.0-80.0 % Lymphocytes (%) (Auto) 10.0-50.0 % Monocytes (%) (Auto) 0.0-12.0 % Basophils (%) (Auto) 0.0-2.0 % Neutrophils # (Auto) 1.6-8.6 10 ^3/uL Lymphocytes # (Auto) 0.4-5.4 10 ^3/uL Monocytes # (Auto) 0-1.3 10 ^3/uL Differential Total Cells Counted 100.0 100 Neutrophils % (Manual) 96 H 37.0-80.0 Band Neutrophils % (Manual) 0 Lymphocytes % (Manual) 2 L 10.0-50.0 Monocytes % (Manual) 2 0-12 Eosinophils % (Manual) 0 0-7 Basophils % (Manual) 0 0.0-2.0 Metamyelocytes % (manual) 0 Myelocytes % (Manual) 0 Promyelocytes % (Manual) 0 Blast Cells % (Manual) 0 Reactive Lymphocytes 0 Platelet Estimate Adequate Sodium Level 127 L 136-145 mmol/L Potassium Level 6.0 *H 3.5-5.1 mmol/L Chloride Level 99 98-107 mmol/L Carbon Dioxide Level 24 20-31 mmol/L Anion Gap 4 L 5-15 Blood Urea Nitrogen 85 *H 9-23 mg/dL Creatinine 1.92 H 0.550-1.02 mg/dL Glomerular Filtration Rate Calc 26 >90 mL/min BUN/Creatinine Ratio 44.3 H 10.0-20.0 Serum Glucose 270 H 74-106 mg/dL Calcium Level 10.3 8.7-10.4 mg/dL Assessment Acute kidney injury superimposed Chronic Kidney Disease stage IV secondary to dehydration Acute respiratory failure on high flow nasal Oxymizer Renal cell carcinoma status post left nephrectomy 2019 Hypotension Dehydration Sepsis Hyponatremia due to dehydration Anemia of chronic kidney disease Recommendations Closely monitor fluid and electrolytes Avoid nephrotoxic medications Rivers catheter Strict I&Os IVF NS at 75 cc/hour KCL replacement Kidney ultrasound reported normal right kidney Cardiology consult Pulmonary consult We will continue to follow Patient seen and examined by myself . I discussed my plan of care with the patient and primary nurse at the bedside I would like to thank Dr. Farrar for the consult, will follow up Plan discussed with: Patient RICH TONEY MD Jan 31, 2024 10:33
[2024-01-31] MEDS: IRON SUCROSE COMPLEX IV SCH (12:00)
[2024-01-31] MEDS: NS IV SCH (12:00)
[2024-01-31] MEDS ORDERED: SODIUM FERR GLUC 62.5MG/5ML 110 ML IV SCH (12:00)
--- NOTE | 2024-01-31 12:16 | DVH ---
Exam: CT CHST AB PEL WO CON-NO IV/ORAL History: SUDDEN SOB ABD PAIN Comparison Study: Chest radiograph 01/30/2024 Technique: Multidetector spiral CT of the chest, abdomen and pelvis was performed from lower neck to pubic symphysis Axial, coronal and sagittal multiplanar reformats were performed by the technologist on a separate workstation. Radiation Dose : 1. Chest/Abdomen/Pelvis: CTDIvol 6 mGy, DLP 405.45 mGy*cm. Findings: Lower neck: Normal thyroid. Lungs: Multifocal patchy ground-glass with interlobular septal thickening. Heart/Vascular Structures: Normal heart size. No pericardial effusion. Lymph Nodes: No adenopathy Pleura: No pleural effusion or significant pneumothorax. Liver: The liver is normal in size. No focal lesions. Gallbladder and Biliary Tree: Unremarkable Spleen: Unremarkable Pancreas: The pancreas is normal in noncontrast appearance. Adrenal Glands: Left adrenal gland appears surgically absent. Normal right adrenal gland. Kidneys: Status post left nephrectomy. Subcentimeter hypodensities in the right kidney, too small to further characterize. No hydronephrosis or nephrolithiasis. Bladder: Decompressed with Rivers catheter. Bowel: Diffuse colonic diverticulosis. The bowel loops are nondilated. The appendix is normal. Ascites: Absent Lymphadenopathy: No lymphadenopathy. Abdominal Wall and Mesentery: Unremarkable. Vasculature: The visualized abdominal aorta is normal in size and caliber. Pelvic Organs: Unremarkable Musculoskeletal: No aggressive focal bony lesions, acute fractures or dislocation. Probable benign os seous hemangioma in the T10 vertebral body. Grade 1 anterolisthesis of L5 on S1. Multilevel degenerat pita changes of the spine. IMPRESSION: 1. Multifocal pulmonary edema and/or pneumonia. 2. No acute findings involving the abdomen or pelvis. 3. Colonic diverticulosis without diverticulitis.
[2024-01-31] MEDS ORDERED: VANCOMYCIN PER PHARMACY 0 MG IV SCH (12:45)
--- NOTE | 2024-01-31 15:37 | DVHPNRES ---
Progress Note Date Seen: Jan 31, 2024 Resident Creating Document: DEIRDRE OCONNOR RESIDENT Has the PT tested + for MRSA If YES, has PT been informed?: No Medical Necessity Reason Pt with a Central, PICC or Fol: No Subjective Review of Systems This is an 78 years old female with a PMH of HTN, HLD, left renal cell carcinoma with left nephrectomy performed on January of 2020, liver metastasis diagnosed in February of 2023 which started immunotherapy on October 10, 2023 and had three sessions (October 09, October 30 and November 21 2023). The patient also has a recent history of C diff and diarrhea on November 23, 2023 which was successfully treated and on December 26, 2023 when back to the hospital for diarrhea, fatigue and electrolyte imbalances. Now, the patient presented to the ED with the chief complaints of shortness of breathe for the last 3 days. Patient reported she has been feeling very weak since she started immunotherapy. Patient reported for the last 3 days she has been having no energy to eat and walk, associated with worsening of shortness of breath and generalized weakness without fever, nausea, vomiting, chest pain, diaphoresis and other associated symptoms. Patient also reported she had some diarrhea , noted some blood in stool by her daughter earlier to admission. Initial labs showed a WBC of 17.3, lactic acidosis at 4.3, creatinine was 1.89 and BUN 81. Urinalysis was performed and came back suggesting UTI. Patient had also mild hyponatremia. Initial chest x-ray was showing signs of mild vascular congestion or pulmonary edema. Renal ultrasound was grossly unremarkable. The patient was started empirically on IV cefepime and doxycycline. Patient was admitted for further assessment and management. Patient seen and examined at bedside. Upon my examination, the patient was having acute shortness of breath for which a stat ABG was performed showing a pH of 7.49, pCO2 of 27.1, PaO2 of 51.8 and HC03 of 20.5 consistent with respiratory alkalosis with metabolic compensation. The patient is currently on Oxymizer at 8 L of oxygen saturating 95%. Chest x-ray was reviewed and was showing pulmonary edema/vascular congestion. We performed a CT of the chest/abdomen and pelvis without contrast which showed multifocal pulmonary edema and possible pneumonia. There was no acute findings involving abdomen or pelvis, colonic diverticulosis without diverticulitis. Patient was initially started on IV cefepime and doxycycline, we discontinued doxycycline and started the patient on vancomycin. Nephrology is on board. By the end of the day, patient become hypoxic requiring intubation and transferred to ICU bed 109. We performed at bedside right internal jugular central line and left radial arterial line. Bronchoscopy was performed at bedside as well, bronchial washings were performed and sent to microbiology for culture. Mucous plugs were identified. Patient is in critical condition, we will continue monitoring in ICU. ROS Constitutional: Reports feeling weak and fatigued. Denies weight loss, fever and chills. HEENT: Denies changes in vision and hearing. Respiratory: Reports shortness of breath. Denies cough Cardiovascular: Denies chest discomfort or palpitations GI: Denies abdominal pain, nausea, vomiting and diarrhea. : Denies dysuria and urinary frequency. Musculoskeletal: Denies myalgias and joint pain Skin: Denies rash and pruritus. Neurological: Denies dizziness, headache, vision or hearing problems Objective vital signs Vital Sign Date Time Temp Pulse Resp B/P (MAP) Pulse Ox O2 Delivery O2 Flow Rate FiO2 01/31/24 13:00 97.7 88 16 125/73 (90) 95 97.7 01/31/24 08:00 Non-Rebreather 8 N/A Total Intake and Output 01/30/24 01/30/24 01/31/24 15:00 23:00 07:00 Intake Total 50 ml 990 ml Output Total 1250 ml Balance 50 ml -260 ml medications Current Medications Medications Dose Ordered Sig/Porfirio Route Start Time Stop Time Status Last Admin Dose Admin Sodium Chloride 10 ml Q8HR IV 01/30/24 22:00 01/31/24 06:28 10 ML Ondansetron HCl 4 mg Q4HP PRN IV 01/30/24 21:30 01/31/24 00:09 4 MG Acetaminophen 650 mg Q6HP PRN PO 01/30/24 21:30 Morphine Sulfate 2 mg Q4HPRN PRN IV 01/30/24 21:30 01/31/24 00:09 2 MG Nitroglycerin 0.4 mg Q5MINP PRN SL 01/30/24 21:30 Morphine Sulfate 2 mg Q30M PRN IV 01/30/24 21:30 Cefepime HCl 50 ml @ 12.5 mls/hr DAILY IV 01/31/24 10:00 01/31/24 09:38 12.5 MLS/HR Sodium Chloride 1,000 ml @ 75 mls/hr [id number] IV 01/31/24 10:30 01/31/24 10:30 75 MLS/HR Iron Sucrose 110 ml @ 110 mls/hr DAILY@1200 IV 01/31/24 12:00 02/03/24 12:59 01/31/24 12:00 110 MLS/HR Vancomycin HCl 0 ml @ 0 mls/hr UD IV 01/31/24 12:45 Examination Physical Examination General: Patient alert and oriented in person, place and time. Patient following commands. HEENT: Normocephalic, atraumatic, moist mucous membranes Respiratory/pulmonary: There are bilateral lung base crackles without wheezes at this time. Currently on Oxymizer at 8 L of oxygen saturating 95%. Cardiovascular: Normal heart sounds S1 and S2 with no associated murmurs Abdomen: Abdomen nondistended, there is no pain to palpation in any of the abdominal quadrants, no palpable masses. Extremities: There is no peripheral edema present at the lower extremities. Peripheral Pulses: 3+ Radial (R). 3+ Radial (L). 3+ Dorsalis pedis (R). 3+ Dorsalis pedis(L) Skin: No rashes or pruritus, there is no sacral edema present at this time. Neurological: Intact cranial nerves with no focal neurologic deficits laboratory and microbiology Laboratory Tests 01/31/24 13:01 01/31/24 04:30 Test 01/31/24 04:30 Range/Units Serum Glucose 199 H 74-106 mg/dL Problem List/Assessment/Plan Problem List/Assessment/Plan Assessment/Plan Patient admitted to ICU Acute hypoxic respiratory failure likely due to Gram-positive/negative bacterial pneumonia -initial chest x-ray was showing pulmonary edema with slight vascular congestion -ordered CT scan of the chest, abdomen and pelvis which showed multifocal pulmonary edema and possible pneumonia. There was no acute findings involving abdomen or pelvis, colonic diverticulosis without diverticulitis -stopped doxycycline -start vancomycin IV -continue cefepime IV -ordered sputum culture -ordered blood cultures -monitor oxygen saturation -ABG was performed showing a pH of 7.49, pCO2 of 27.1, PaO2 of 51.8 and HC03 of 20.5 consistent with respiratory alkalosis with metabolic compensation -Patient was further intubated and placed on mech vent Sepsis likely due to pneumoniae and UTI -ordered blood cultures -ordered sputum culture -ordered urine culture -continue IV antibiotics as stated above -Patient was started on vasopressors (levophed) and sedation. UTI -urinalysis came back suggesting UTI -currently on IV cefepime and vancomycin -ordered urine culture Acute normocytic normochromic anemia -hemoglobin 7.4, hematocrit 22.5 -ordered iron panel and ferritin. Iron panel came back low and ferritin on normal range most likely consistent with iron-deficiency anemia -start IV iron Hyperkalemia -ordered hyperkalemia protocol -monitor lab Hyponatremia -sodium this morning was 129 -ordered serum osmolality which came back elevated at 316 CECILIA on CKD Stage IV -creatinine is 1.89, BUN 81 and GFR 27 -status post left nephrectomy due to renal cell carcinoma on jan 2020 -monitor kidney function -nephrology on board Type 2 diabetes mellitus -hemoglobin A1c was 7.2% -currently on sliding scale insulin -monitor blood glucose Lines: Right internal jugular central line placed on 01/31/2024 Left radial arterial line placed on 01/31/24 Goals of care discussed with the patient and family at bedside for >23min, FULL CODE Plan discussed with Dr. Kam Plan discussed with: Patient, Daughter My Orders My Orders Orders - DEIRDRE OCONNOR Procedure Category Date Status Time Abg W/ Co-Ox RT 01/31/24 Logged 09:26 Stool Occult Blood LAB 01/31/24 Logged 09:38 Chst Ab Pel Wo Con-No CT 01/31/24 Resulted Iv/Oral 09:54 * [facility] [employer] Professor CONS 01/31/24 Transmitted 09:55 Vancomycin Per PHA 01/31/24 In Process Pharmacy 12:45 Complete Blood Count LAB 02/01/24 Verified 04:00 Creatinine LAB 02/01/24 Verified 04:00 Vancomycin,Random LAB 02/01/24 Verified 04:00 Vancomycin Per ZOILA 01/31/24 In Process Pharmacy Protoc 12:44 Date of Service: Jan 31, 2024 Billing Provider: NAIDA KAM MD Common Visit Codes: [id number] INP/OBS CARE(HIGH) DEIRDRE OCONNOR RESIDENT Jan 31, 2024 15:37 NAIDA KAM MD Feb 01, 2024 22:59
[2024-01-31] MEDS: VANCOMYCIN 1.5GM/300ML 300 ML IV ONE (16:00)
[2024-01-31 16:24] LABS: Base Excess -1.3 mmol/L (-2.0-3.0)
--- NOTE | 2024-01-31 16:42 | DVH ---
EXAM: XY CHEST PORTABLE TECHNIQUE: Single frontal chest radiograph CLINICAL HISTORY: hypoxia COMPARISON: XY CHEST PORTABLE on DOS: 01/30/24 Findings/Impression: Frontal chest radiograph demonstrates no acute osseous or superficial soft tissue abnormalities. The trachea is midline. Mild cardiomegaly with pulmonary vascular conegstion and mild worsening edema . No pneumothorax, pleural effusions, or consolidations.
[2024-01-31] MEDS: ETOMIDATE (2MG/ML) 20ML VIAL IV ONE ×2 (17:05→17:18)
[2024-01-31] MEDS: ROCURONIUM 10MG/ML 10ML VIAL IV ONE ×2 (17:06→17:19)
[2024-01-31] MEDS: fentaNYL Drip 2500mCg/250mlNS 250 ML IV ONE (17:10)
[2024-01-31] MEDS: PROPOFOL 100 ML IV ONE (17:10)
[2024-01-31] MEDS: NOREPINEPHRINE 8 MG/250ML KIT 250 ML IV ONE (17:10)
[2024-01-31] MEDS: PROPOFOL 100 ML IV SCH (17:15)
[2024-01-31] MEDS: fentaNYL Drip 2500mCg/250mlNS 250 ML IV SCH (17:20)
[2024-01-31] MEDS: MIDAZOLAM DRIP 50 mg/50mL 50 ML IV SCH (17:30)
[2024-01-31] MEDS: MIDAZOLAM DRIP 50 mg/50mL 50 ML IV ONE (17:43)
[2024-01-31] MEDS: NOREPINEPHRINE 8 MG/250ML KIT 250 ML IV SCH (17:45)
--- NOTE | 2024-01-31 19:02 | DVH ---
EXAM: XY CHEST PORTABLE TECHNIQUE: Single frontal chest radiograph CLINICAL HISTORY: INTUBATION, CENRAL LINE, OGT COMPARISON: XY CHEST PORTABLE on DOS: 01/31/24, XY CHEST PORTABLE on DOS: 01/30/24 Findings/Impression: Frontal chest radiograph demonstrates no acute osseous or superficial soft tissue abnormalities. Endotracheal tube terminates 2.6 cm from the abhijit. Right IJ catheter terminates near the superior c avoatrial junction. No visualized enteric tube. The trachea is midline. Mild cardiomegaly with pulmonary vascular conegstion and edema, unchanged from prior. No pneumothorax or pleural effusions.
[2024-01-31 19:18] LABS: Base Excess -2.2 mmol/L (-2.0-3.0)
--- NOTE | 2024-01-31 19:31 | DVHINCON2 ---
Date of service: Jan 31, [address] Doyle Reason for Consultation Acute hypoxic respiratory failure History of Present Illness 78-year-old woman history of hypertension, hyperlipidemia, left kidney cancer with liver metastasis status post left nephrectomy presented with a chief complaint of shortness of breath for the last three days. Patient has been feeling very weak since initiation of immunotherapy per report. She has been having anorexia, difficulty walking, and worsening shortness of breath. She notes generalized weakness. She denies any fevers or chills. She denies any nausea, vomiting, chest pain or diaphoresis. Patient was in severe respiratory distress. She was using accessory muscles. She was having difficulty breathing. Pulmonary consultation is called due to acute hypoxic respiratory failure. Review of systems: 14 point review of systems is negative unless otherwise noted above. Past medical history: Hypertension, hyperlipidemia, left kidney cancer with liver metastasis Past surgical history: Status post left nephrectomy Medications: Reviewed Allergies: No known drug allergies. Family history: Liver cancer in mother. Stroke in father. Social history: Nonsmoker. No alcohol or illicit drug use. Lives at home alone. Family History: Patient reports no known family medical history. Allergies: Coded Allergies: No Known Drug Allergy (Verified Allergy, Unknown, 01/30/24) Home Meds Reported Medications Hydralazine Hcl (Hydralazine Hcl) 50 Mg Tab, 1 TAB PO DAILY, #90 TAB 5 Refills 01/31/24 Prednisone (PREDNISONE) 1 Mg Tb, 4 TAB PO DAILY, #360 TAB 3 Refills 01/31/24 Pantoprazole Sodium (PANTOPRAZOLE SODIUM) 40 Mg Inj, 40 MG PO, INJ 01/31/24 Atenolol (TENORMIN TABLET) 50 Mg Tb, 1 TAB PO DAILY, #30 TAB 5 Refills 01/31/24 Amlodipine Besylate (Amlodipine Besylate) 10 Mg Tab, 1 TAB PO DAILY, #30 TAB 5 Refills 01/31/24 Ondansetron Odt 4MG Tab (ZOFRAN PO) 4 Mg Tb, 4 MG PO, TAB ODT TAB-DISSOLVE IN MOUTH, THEN SWALLOW 01/31/24 Vitamin B12 (Vitamin B-12) 1,000 Mcg/1 Ml Ij, 250 MCG PO, INJ 01/31/24 Current Medications Current Medications Medications (Trade) Dose Ordered Sig/Porfirio Route PRN Reason Start Time Stop Time Status Last Admin Sodium Chloride (Saline Lock Ns) 10 ml Q8HR IV 01/30/24 22:00 01/31/24 14:00 Ondansetron HCl (Zofran) 4 mg Q4HP PRN IV NAUSEA / VOMITING 01/30/24 21:30 01/31/24 00:09 Acetaminophen (Tylenol Tablet) 650 mg Q6HP PRN PO PAIN SCALE 1-3 OR TEMP>100.4 01/30/24 21:30 Morphine Sulfate 2 mg Q4HPRN PRN IV SEVERE PAIN (7-10 PAIN SCALE) 01/30/24 21:30 01/31/24 00:09 Nitroglycerin (Ntrostat Sublingual) 0.4 mg Q5MINP PRN SL FOR CHEST PAIN 01/30/24 21:30 Morphine Sulfate 2 mg Q30M PRN IV FOR CHEST PAIN 01/30/24 21:30 Ceftriaxone Sodium 50 ml @ 100 mls/hr DAILY@09 IV 01/30/24 23:00 01/31/24 07:05 DC 01/31/24 00:10 Azithromycin 250 ml @ 125 mls/hr DAILY IV 01/31/24 10:00 01/31/24 00:51 DC Cefepime HCl 50 ml @ 12.5 mls/hr DAILY IV 01/31/24 10:00 01/31/24 09:38 Doxycycline Hyclate 250 ml @ 125 mls/hr Q12H IV 01/31/24 01:00 01/31/24 12:33 DC 01/31/24 01:00 Sodium Chloride 1,000 ml @ 75 mls/hr [id number] IV 01/31/24 10:30 01/31/24 10:30 Ferric Sodium Gluconate Complex 110 ml @ 110 mls/hr DAILY@1200 IV 01/31/24 12:00 01/31/24 12:12 DC Iron Sucrose 110 ml @ 110 mls/hr DAILY@1200 IV 01/31/24 12:00 02/03/24 12:59 01/31/24 12:00 Vancomycin HCl 0 ml @ 0 mls/hr UD IV 01/31/24 12:45 Propofol 100 ml @ 1.836 mls/ hr Q24H IV 01/31/24 17:15 01/31/24 17:15 Fentanyl Citrate 250 ml @ 2.5 mls/hr Q24H IV 01/31/24 17:15 01/31/24 17:20 Norepinephrine Bitartrate 250 ml @ 3.75 mls/hr Q24H IV 01/31/24 17:15 01/31/24 17:45 Midazolam HCl 50 ml @ 1 mls/hr Q24H IV 01/31/24 17:30 01/31/24 17:30 Vital Signs Vital Signs Date Time Temp Pulse Resp B/P (MAP) Pulse Ox O2 Delivery O2 Flow Rate FiO2 01/31/24 18:45 103/43 01/31/24 18:45 100 41 100 01/31/24 17:56 100 01/31/24 13:00 97.7 97.7 01/31/24 08:00 Non-Rebreather 8 Physical Exam Gen.: Patient lying in bed in medical ICU. Sedated, intubated on mechanical ventilator. Head: Normocephalic, atraumatic. Eyes: PERRLA. Ears: Normal external anatomy. Throat: Endotracheal tube and orogastric tube in place. Neck: Supple, trachea midline. Chest: Transmitted breath sounds bilaterally. Decreased air entry bilaterally. No wheezing. Bibasilar crackles. Cardio vascular: Positive S1, positive S2. Regular rate and rhythm. Abdomen: Positive bowel sounds in all 4 quadrants. Soft, nontender, nondistended. : Rivers in place. Normal external genitalia. Rectal: Deferred Skin: Warm, dry. Intact. Extremities: 2+ radial pulses bilaterally. No lower extremity edema. Neuro: Sedated. Labs/Diagnostic Data Labs Test 01/31/24 16:12 01/31/24 13:01 01/31/24 04:30 01/31/24 00:50 Range/Units Blood Gas Specimen Type Arterial Blood Gas Sample Site Right radial Blood Gas Patient Temperature 37.0 Arterial Blood Date Drawn [id number] Arterial Blood pH 7.556 *H 7.350-7.450 Arterial Blood Partial Pressure CO2 23.6 L 32.0-45.0 mmHg Arterial Blood Partial Pressure O2 254.6 H 83.0-108.0 mmHg Arterial Blood HCO3 20.5 L 21.0-28.0 mmol/L Arterial Blood Oxygen Saturation 99.2 H 94.0-98.0 % Arterial Blood Base Excess -1.3 -2.0-3.0 mmol/L Arterial Blood Oxyhemoglobin 98.1 H 94.0-98.0 % Arterial Blood Carboxyhemoglobin 0.9 0.5-1.5 % Arterial Blood Methemoglobin 0.2 0.0-1.5 % Alexei Test Yes Blood Gas Total Hemoglobin 7.70 L 12.0-16.0 g/dL Blood Gas Liter Flow 15.00 Blood Gas Modality Mask - nrb FiO2 % 100.0 Blood Gas Critical Value Read Back Yes Blood Gas Notified Whom Dr. hermila obrien Blood Gas Notified Time [id number] Blood Gas Notified By Darleen dougherty rrt Potassium Level 4.9 3.5-5.1 mmol/L White Blood Count 17.3 H 4.4-10.8 10^3/uL Red Blood Count 2.57 L 4.0-5.20 10^6/uL Hemoglobin 7.4 L 12.2-16.2 g/dL Hematocrit 22.5 #L 36.0-46.0 % Mean Corpuscular Volume 87.8 80.0-100.0 fL Mean Corpuscular Hemoglobin 29.0 28.0-32.0 pg Mean Corpuscular Hemoglobin Concent 33.0 32.0-36.0 g/dL Red Cell Distribution Width 14.9 H 11.8-14.3 % Platelet Count 236 140-450 10^3/uL Mean Platelet Volume 8.2 6.9-10.8 fL Neutrophils (%) (Auto) 89.9 H 37.0-80.0 % Lymphocytes (%) (Auto) 5.9 L 10.0-50.0 % Monocytes (%) (Auto) 4.0 0.0-12.0 % Eosinophils (%) (Auto) 0.1 0.0-7.0 % Basophils (%) (Auto) 0.1 0.0-2.0 % Neutrophils # (Auto) 15.6 H 1.6-8.6 10 ^3/uL Lymphocytes # (Auto) 1.0 0.4-5.4 10 ^3/uL Monocytes # (Auto) 0.7 0-1.3 10 ^3/uL Eosinophils # (Auto) 0 0-0.8 10 ^3/uL Basophils # (Auto) 0 0-0.2 10 ^3/uL Nucleated Red Blood Cells 0.4 % Sodium Level 129 L 136-145 mmol/L Chloride Level 93 L 98-107 mmol/L Carbon Dioxide Level 23 20-31 mmol/L Anion Gap 13 5-15 Blood Urea Nitrogen 81 *H 9-23 mg/dL Creatinine 1.89 H 0.550-1.02 mg/dL Glomerular Filtration Rate Calc 27 >90 mL/min BUN/Creatinine Ratio 42.9 H 10.0-20.0 Serum Glucose 199 H 74-106 mg/dL Calcium Level 10.2 8.7-10.4 mg/dL Iron Level 35 L 50-170 ug/dL Total Iron Binding Capacity 290 250-425 ug/dL Percent Iron Saturation 12.1 L 15-50 % Ferritin 124.4 10-291 ng/mL Total Bilirubin 0.2 0.2-1.0 mg/dL Aspartate Amino Transferase (AST) 36 13-40 U/L Alanine Aminotransferase (ALT) 17 7-40 U/L Alkaline Phosphatase 41 L 46-116 U/L Total Protein 6.3 5.7-8.2 g/dL Albumin 3.8 3.2-4.8 g/dL Lactic Acid Level 4.3 *H 0.4-2.0 mmol/L Test 01/30/24 23:15 01/30/24 21:35 01/30/24 19:10 01/30/24 18:27 Range/Units POC Glucose 196 H 70-106 mg/dl Prothrombin Time 10.3 9.3-11.8 sec Prothrombin Time INR 0.97 0.9-1.15 Activated Partial Thromboplast Time 20.8 L 24.5-34.5 SEC Hemoglobin A1c 7.3 H <5.7 % A1C Serum Osmolality 316 H 278-298 mOsm/kg Phosphorus Level 4.7 2.4-5.1 mg/dL Magnesium Level 2.1 1.6-2.6 mg/dL B-Type Natriuretic Peptide 164.87 0-100 pg/mL Vitamin B12 Level 1268 H 211-911 pg/mL Vitamin D 25-Hydroxy 38.6 30.0-100 ng/mL Thyroid Stimulating Hormone (TSH) 0.86 0.55-4.78 uIU/mL Urine Color Light-yellow Yellow Urine Clarity Clear Clear Urine pH 5.0 5.0-9.0 Urine Specific [place] 1.015 1.001-1.035 Urine Protein Negative Negative Urine Ketones Negative Negative Urine Blood 1+ H Negative /uL Urine Nitrite Negative Negative Urine Bilirubin Negative Negative Urine Urobilinogen Normal Negative mg/dL Urine Leukocyte Esterase 1+ Negative /uL Urine RBC 2 0 - 4 /hpf Urine WBC 11 0 - 5 /hpf Urine Squamous Epithelial Cells Few <5 /hpf Urine Bacteria Few H None Seen /hpf Urine Hyaline Casts Few 0 - 2 /lpf Urine Osmolality 508 mOsm/kg Urine Creatinine 43.44 30.0-125.0 mg/dL Urine Sodium 45 40-220 mmol/L Urine Glucose Normal Normal mg/dL Urine Total Protein 16.3 H 1-14 mg/dL Urine Opiates Screen Pos NEGATIVE Urine Fentanyl Screen Neg NEGATIVE Urine Barbiturates Screen Neg NEGATIVE Urine Phencyclidine Screen Neg NEGATIVE Urine Amphetamines Screen Neg NEGATIVE Urine Benzodiazepines Screen Neg NEGATIVE Urine Cocaine Screen Neg NEGATIVE Urine Cannabinoids Screen Neg NEGATIVE Influenza Type A Antigen Negative Negative Influenza Type B Antigen Negative Negative SARS-CoV-2 Antigen (Rapid) Negative NEGATIVE Test 01/30/24 17:43 Range/Units Differential Total Cells Counted 100.0 100 Neutrophils % (Manual) 96 H 37.0-80.0 Band Neutrophils % (Manual) 0 Lymphocytes % (Manual) 2 L 10.0-50.0 Monocytes % (Manual) 2 0-12 Eosinophils % (Manual) 0 0-7 Basophils % (Manual) 0 0.0-2.0 Metamyelocytes % (manual) 0 Myelocytes % (Manual) 0 Promyelocytes % (Manual) 0 Blast Cells % (Manual) 0 Reactive Lymphocytes 0 Platelet Estimate Adequate Assessment Impression: Acute hypoxic respiratory failure On mechanical ventilator Pneumonia, likely Gram-negative versus Gram-positive Sepsis due to pneumonia versus urinary tract infection Acute complicated urinary tract infection Hyperkalemia Hyponatremia Acute kidney injury on chronic kidney disease Hyperglycemia without diabetes mellitus type 2 Rule out C diff Pulmonary edema Metabolic acidosis Plan: s/p intubation on mechanical ventilator CXR post-intubation is pending. ABG post- intubation is pending. Pt intubated due to acute hypoxic respiratory failure. On AC with RR 20, Vt 450, Peep 8, Fio2 100% Titrate FIO2 to keep O2 saturation above 92%. VAP bundle Daily ABG and CXR while intubated. Sedate for ventilatory synchrony On pressors for hemodynamic support. On Levophed 2 mcg/min. Titrate to keep MAP above 65 mmHg/SBP above 90 mmHg. Right IJ central line placed for administration of medications and vasoactive medications. See separate procedure note. Left radial arterial line placed for hemodynamic monitoring and frequent ABGs. See separate procedure note. Continue antibiotics. F/u cultures. Bronchoscopy performed for ET tube placement and to obtain RML BAL obtained for sputum culture. See separate procedure note. Monitor renal function due to Acute kidney injury. Monitor electrolytes. Supplement as necessary. IVF at 75 mL/hour Creatinine trending down. Monitor hgb Transfuse if less than 7.0 g/dL Iron supplementation Transfuse if less than 7.0 g/dL. Nutritional support. Accucheks, ISS. GI prophylaxis DVT prophylaxis. Condition: Critical Prognosis: Poor given multiple comorbidities. Rest of plan per hospitalist and other consultants. A total of 36 minutes of critical care time was spent reviewing the patient record, examining the patient, making a diagnostic and therapeutic plan, discussing this plan with the medical personnel, following up on diagnostic studies and following the patient for clinical stability excluding any and all procedures. At least 50% of this time was spent in direct, [id number] contact. Thank you Dr. Doyle for allowing me to participate in this patient's care. Further recommendations will depend on patient's clinical course. Please do not hesitate to contact me if you have any questions or concerns. This medical document was created using an electronic medical record system with [employer] dictation system. Although this document has been carefully reviewed, there may still be some phonetic and typographical errors. These areas are purely typographical due to imperfections of the software programs, and do not reflect any compromise in the patient's medical care. Plan discussed with: Patient, Other (VARSHA Osborn, RT MD Darleen) DUSTIN OBRIEN MD Jan 31, 2024 19:31
--- NOTE | 2024-01-31 19:32 | DVHNC2 ---
Procedure - Procedure: Endotracheal Intubation INDICATION: Acute respiratory failure, accessory muscle usage Physician: Dustin Abdi MD Waxer Operator: Dr Doyle, PGY2 CONSENT: Emergent procedure. Implied. PROCEDURE SUMMARY: A time out was performed. My hands were washed immediately prior to the procedure. I wore a surgical cap, mask with protective eyewear, gown and gloves throughout the procedure. The patient was placed on a laboratory monitor including continuous pulse oximetry. The patient received 16 mg Etomidate and 50 mg rocuronium for induction. Cricoid pressure was maintained from time induction agent was given to time of cuff balloon inflation. Using a MAC 4 Laryngoscope and a size 7.5 endotracheal tube with stylet, the patient was intubated on the 1 attempt. The stylet was removed and cuff balloon was inflated. Appropriate en dotracheal tube position was confirmed by direct visualization of vocal cord passage, fogging of the tube, CO2 colometric indicator and symmetric breath sounds. The tube was secured at 25 cm at the lips. Post intubation chest x-ray is demonstrates the ETT approximately 4 cm above the abhijit. CPT Code: 90836 DUSTIN ABDI MD Jan 31, 2024 19:32
--- NOTE | 2024-01-31 19:33 | DVHNC2 ---
Procedure - ULTRASOUND-GUIDED RIGHT INTERNAL JUGULAR CENTRAL VENOUS CANNULATION CPT Codes: 47891 (ultrasound guidance) 70661 (insertion of non-tunneled centrally inserted central venous catheter) 28218 (CXR interpretation) DATE: 01/31/2024 PHYSICIAN: Dustin Abdi PREOPERATIVE DIAGNOSIS: Acute hypoxic respiratory failure, shock POSTOPERATIVE DIAGNOSIS: Acute hypoxic respiratory failure, shock PROCEDURE PERFORMED: Limited Ultrasound-guided Right internal jugular central line placement. ANESTHESIA: 2 mL of 1% lidocaine plain. ESTIMATED BLOOD LOSS: less than 5 mL. SPECIMENS: None. COMPLICATIONS: None. INDICATIONS FOR PROCEDURE: The patient is in need of large bore IV access for administration of fluids, including blood products and vasoactive drugs, possible transvenous cardiac pacing and CVP monitoring for hemodynamic instability. DESCRIPTION OF PROCEDURE IN DETAIL: The patient was lying in the Trendelenburg position with head turned 30 degrees away from the insertion site. The skin was thoroughly sponged with chlorhexidine and allowed to dry. All persons involved were shielded with hair nets, face masks and sterile gowns. With sterile-gloved hands the right neck area was draped with the large disposable sterile field provided in the pre-manufactured kit. The skin and subcutaneous tissues superficial to the RIGHT internal jugular vein were anesthetized with 2 mL of 1% lidocaine. The RIGHT internal jugular vein was identified on ultrasound from the angle of the mandible down into the supraclavicular fossa using the linear ultrasound probe in the transverse orientation. The carotid artery was identified and avoided utilizing color-flow. The internal jugular vein was then placed in the center of the ultrasound field and compressed for patency. A movement artifact was identified as the needle was advanced through the skin and advanced toward the vessel. A real time hyperechoic signal revealed visualization of vascular needle entry into the lumen as blood was noted to flashback in the syringe. The needle was then held in place while the guide wire was advanced. The needle was then removed. Direct visualization of guide wire location within the vein was noted on ultrasound indicating proper placement and was document in the [facility] medical record chart. A skin dilator was advanced over the guidewire and removed, and the triple-lumen catheter was then advanced over the guide wire into proper position. The guide wire was removed and discarded. The ports were aspirated which showed good blood return and then carefully flushed with normal saline. The catheter was stabilized and sutured to the skin with 2-0 silk at 2 anchor points. A sterile bio-patch and dressing was placed over the catheter, including the insertion site. The patient tolerated the procedure well. A chest x-ray was ordered for position confirmation. I reviewed the image immediately after it was taken at bedside. Post-procedure chest x-ray demonstrates the central line in the superior vena and no evidence of any pneumothorax. An image recording of the procedure accompanies the chart. DUSTIN ABDI MD Jan 31, 2024 19:33
--- NOTE | 2024-01-31 19:34 | DVHNC2 ---
Procedure - Radial arterial line procedure note Indication: Hemodynamic monitoring, frequent blood ABG draws. Business Taxes Specialist: Dr. Abdi Date: 01/31/2024 Time: 1933 Consent: Consent was obtained from patient's healthcare proxy prior to procedure. Indications, risks, and benefits were explained at length. Procedure summary: A time-out was performed. My hands were washed immediately prior to the procedure. I wore surgical cap, mask with protective eyewear, sterile gown and sterile gloves throughout the procedure. After an Alexei test was performed to ensure adequate perfusion, the LEFT wrist was prepped using chlorhexidine scrub and draped in sterile fashion using sterile towels. The radial pulse was identified with the use of ultrasound. The wrist was positioned in the usual fashion. Anesthesia was achieved using 1% lidocaine. Using the radial arterial line kit, needle was inserted into the radial artery using ultrasound guidance. Arterial blood flow was seen to pulsate in the flash chamber. The internal guidewire was advanced easily into the radial artery. The catheter was then advanced over the wire and the needle and wire were withdrawn. The catheter was sutured into place with 1 sutures. A sterile Biopatch and Tegaderm was placed over the catheter at the insertion site. The patient tolerated the procedure without any hemodynamic compromise. At the time of procedure completion, the catheter was connected to the monitoring engineer and calibrated. Appropriate waveform and blood pressure tracing was observed. Estimated blood loss is less than 5 mL. CPT: 20524 Arterial line insertion CPT: 61258 US add-on DUSTIN ABDI MD Jan 31, 2024 19:34
--- NOTE | 2024-01-31 19:37 | DVHNC2 ---
Procedure - Bronchoscopy procedure note: Indications: Pneumonia, Possible mucous plugging. Medicines: See [employer] notes. Complications: None Procedure: Patient medications and allergies reviewed. The risks and benefits of the procedure and the sedation options and risk were discussed with the patient prior to procedure. All questions were answered and informed consent was obtained. Patient identification and proposed procedure were verified prior to the procedure by the physician, and a nurse, and the respiratory therapist in ICU room. The heart rate, respiratory rate, oxygen saturations, blood pressure, adequacy of pulmonary ventilation, and response to care were monitored throughout the procedure. The physical status of the patient was reassessed after the procedure. After obtaining informed consent, the bronchoscope was introduced through the endotracheal tube and advanced into the trachea bronchial tree of both lungs. The procedure was accomplished without difficulty. The patient tolerated the procedure well. Findings: The trachea is in normal caliber. The abhijit is sharp. The tracheobronchial tree of the right lung was examined to at least the first subsegmental level. The bronchial mucosa and anatomy in the right lung are normal. There are no endobronchial lesions. There was scant whitish secretions in right main stem bronchus. Right middle lobe (RML) Bronchoalveolar lavage (BAL) obtained. RML BAL sent for gram stain and culture. The left upper lobe, lingula, and left lower lobe were examined to at least the first subsegmental level. Bronchial mucosa and anatomy in the left upper lobe and lingula are normal. There were no endobronchial lesions. There was scant whitish secretions from left main stem bronchus. There was no active bleeding at the completion of the procedure. Estimated blood loss: Less than 5 mL. Impression: Scant secretion in left and right mainstem bronchus Right Middle Lobe (RML) Bronchoalveolar lavage (BAL) performed Recommendation: Follow-up RML BAL results. Procedure codes: 95677, bronchoscopy, rigid and flexible, including fluoroscopic guidance, one performed; with bronchial endobronchial broncho-alveolar lavage, single or multiple sites DUSTIN LARA MD Jan 31, 2024 19:37
--- NOTE | 2024-01-31 19:47 | DVHINCON2 ---
Date of service: Jan 31, [address] Vanita Colmenares Reason for Consultation Anemia possible GI bleed History of Present Illness SHYAM HAMLIN is 78 years old female with a PMH of HTN, HLD, left kidney cancer with liver metastasis status post left nephrectomy presented to the ED with the chief complaints of shortness of breathe for the last 3 days. Patient reported she has been feeling very weak since she started immunotherapy. Patient reported for the last 3 days she has been having no energy for to eat, walk, associated with worsening of shortness of breath and generalized weakness without fever, nausea, vomiting, chest pain, diaphoresis and other associated symptoms. Patient also reported she had some diarrhea , noted some blood in stool by her daughter earlier to admission, diagnosed as C diff 4 weeks ago. Pt required intubation and bronchoscopy this evening for hypoxic respiratory failure Past Medical History Past Medical History HTN, HLD, left kidney cancer with liver metastasis Past Surgical History Past Surgical History status post left nephrectomy Family History: Patient reports no known family medical history. Allergies: Coded Allergies: No Known Drug Allergy (Verified Allergy, Unknown, 01/30/24) Home Meds Reported Medications Hydralazine Hcl (Hydralazine Hcl) 50 Mg Tab, 1 TAB PO DAILY, #90 TAB 5 Refills 01/31/24 Prednisone (PREDNISONE) 1 Mg Tb, 4 TAB PO DAILY, #360 TAB 3 Refills 01/31/24 Pantoprazole Sodium (PANTOPRAZOLE SODIUM) 40 Mg Inj, 40 MG PO, INJ 01/31/24 Atenolol (TENORMIN TABLET) 50 Mg Tb, 1 TAB PO DAILY, #30 TAB 5 Refills 01/31/24 Amlodipine Besylate (Amlodipine Besylate) 10 Mg Tab, 1 TAB PO DAILY, #30 TAB 5 Refills 01/31/24 Ondansetron Odt 4MG Tab (ZOFRAN PO) 4 Mg Tb, 4 MG PO, TAB ODT TAB-DISSOLVE IN MOUTH, THEN SWALLOW 01/31/24 Vitamin B12 (Vitamin B-12) 1,000 Mcg/1 Ml Ij, 250 MCG PO, INJ 01/31/24 Current Medications Current Medications Medications (Trade) Dose Ordered Sig/Porfirio Route PRN Reason Start Time Stop Time Status Last Admin Sodium Chloride (Saline Lock Ns) 10 ml Q8HR IV 01/30/24 22:00 01/31/24 14:00 Ondansetron HCl (Zofran) 4 mg Q4HP PRN IV NAUSEA / VOMITING 01/30/24 21:30 01/31/24 00:09 Acetaminophen (Tylenol Tablet) 650 mg Q6HP PRN PO PAIN SCALE 1-3 OR TEMP>100.4 01/30/24 21:30 Morphine Sulfate 2 mg Q4HPRN PRN IV SEVERE PAIN (7-10 PAIN SCALE) 01/30/24 21:30 01/31/24 00:09 Nitroglycerin (Ntrostat Sublingual) 0.4 mg Q5MINP PRN SL FOR CHEST PAIN 01/30/24 21:30 Morphine Sulfate 2 mg Q30M PRN IV FOR CHEST PAIN 01/30/24 21:30 Ceftriaxone Sodium 50 ml @ 100 mls/hr DAILY@09 IV 01/30/24 23:00 01/31/24 07:05 DC 01/31/24 00:10 Azithromycin 250 ml @ 125 mls/hr DAILY IV 01/31/24 10:00 01/31/24 00:51 DC Cefepime HCl 50 ml @ 12.5 mls/hr DAILY IV 01/31/24 10:00 01/31/24 09:38 Doxycycline Hyclate 250 ml @ 125 mls/hr Q12H IV 01/31/24 01:00 01/31/24 12:33 DC 01/31/24 01:00 Sodium Chloride 1,000 ml @ 75 mls/hr [id number] IV 01/31/24 10:30 01/31/24 10:30 Ferric Sodium Gluconate Complex 110 ml @ 110 mls/hr DAILY@1200 IV 01/31/24 12:00 01/31/24 12:12 DC Iron Sucrose 110 ml @ 110 mls/hr DAILY@1200 IV 01/31/24 12:00 02/03/24 12:59 01/31/24 12:00 Vancomycin HCl 0 ml @ 0 mls/hr UD IV 01/31/24 12:45 Propofol 100 ml @ 1.836 mls/ hr Q24H IV 01/31/24 17:15 01/31/24 17:15 Fentanyl Citrate 250 ml @ 2.5 mls/hr Q24H IV 01/31/24 17:15 01/31/24 17:20 Norepinephrine Bitartrate 250 ml @ 3.75 mls/hr Q24H IV 01/31/24 17:15 01/31/24 17:45 Midazolam HCl 50 ml @ 1 mls/hr Q24H IV 01/31/24 17:30 01/31/24 17:30 Vital Signs Vital Signs Date Time Temp Pulse Resp B/P (MAP) Pulse Ox O2 Delivery O2 Flow Rate FiO2 01/31/24 18:45 103/43 01/31/24 18:45 100 41 100 01/31/24 17:56 100 01/31/24 13:00 97.7 97.7 01/31/24 08:00 Non-Rebreather 8 Physical Exam Pt became hemodynamically unstable Intubated sedated in ICU for respiratory failure Pt had A line and central line placed Full physical exam deferred Labs/Diagnostic Data Labs Test 01/31/24 18:48 01/31/24 16:12 01/31/24 13:01 01/31/24 04:30 Range/Units Blood Gas Specimen Type Arterial Blood Gas Sample Site Left brachial Blood Gas Patient Temperature 37.0 Arterial Blood Date Drawn [id number] Arterial Blood pH 7.422 7.350-7.450 Arterial Blood Partial Pressure CO2 34.4 32.0-45.0 mmHg Arterial Blood Partial Pressure O2 214.0 H 83.0-108.0 mmHg Arterial Blood HCO3 21.9 21.0-28.0 mmol/L Arterial Blood Oxygen Saturation 98.9 H 94.0-98.0 % Arterial Blood Base Excess -2.2 L -2.0-3.0 mmol/L Arterial Blood Oxyhemoglobin 98.0 94.0-98.0 % Arterial Blood Carboxyhemoglobin 0.2 L 0.5-1.5 % Arterial Blood Methemoglobin 0.7 0.0-1.5 % Alexei Test N/a Blood Gas Total Hemoglobin 7.30 L 12.0-16.0 g/dL Blood Gas Set Respiration Rate 20.0 Blood Gas Modality Vent - ac Blood Gas Spontaneous Rate 21 FiO2 % 100.0 Blood Gas Tidal Volume 450.0 Blood Gas PEEP or CPAP 5.0 Blood Gas Liter Flow 15.00 Blood Gas Critical Value Read Back Yes Blood Gas Notified Whom Dr. hermila obrien Blood Gas Notified Time [id number] Blood Gas Notified By Darleen dougherty rrt Potassium Level 4.9 3.5-5.1 mmol/L White Blood Count 17.3 H 4.4-10.8 10^3/uL Red Blood Count 2.57 L 4.0-5.20 10^6/uL Hemoglobin 7.4 L 12.2-16.2 g/dL Hematocrit 22.5 #L 36.0-46.0 % Mean Corpuscular Volume 87.8 80.0-100.0 fL Mean Corpuscular Hemoglobin 29.0 28.0-32.0 pg Mean Corpuscular Hemoglobin Concent 33.0 32.0-36.0 g/dL Red Cell Distribution Width 14.9 H 11.8-14.3 % Platelet Count 236 140-450 10^3/uL Mean Platelet Volume 8.2 6.9-10.8 fL Neutrophils (%) (Auto) 89.9 H 37.0-80.0 % Lymphocytes (%) (Auto) 5.9 L 10.0-50.0 % Monocytes (%) (Auto) 4.0 0.0-12.0 % Eosinophils (%) (Auto) 0.1 0.0-7.0 % Basophils (%) (Auto) 0.1 0.0-2.0 % Neutrophils # (Auto) 15.6 H 1.6-8.6 10 ^3/uL Lymphocytes # (Auto) 1.0 0.4-5.4 10 ^3/uL Monocytes # (Auto) 0.7 0-1.3 10 ^3/uL Eosinophils # (Auto) 0 0-0.8 10 ^3/uL Basophils # (Auto) 0 0-0.2 10 ^3/uL Nucleated Red Blood Cells 0.4 % Sodium Level 129 L 136-145 mmol/L Chloride Level 93 L 98-107 mmol/L Carbon Dioxide Level 23 20-31 mmol/L Anion Gap 13 5-15 Blood Urea Nitrogen 81 *H 9-23 mg/dL Creatinine 1.89 H 0.550-1.02 mg/dL Glomerular Filtration Rate Calc 27 >90 mL/min BUN/Creatinine Ratio 42.9 H 10.0-20.0 Serum Glucose 199 H 74-106 mg/dL Calcium Level 10.2 8.7-10.4 mg/dL Iron Level 35 L 50-170 ug/dL Total Iron Binding Capacity 290 250-425 ug/dL Percent Iron Saturation 12.1 L 15-50 % Ferritin 124.4 10-291 ng/mL Total Bilirubin 0.2 0.2-1.0 mg/dL Aspartate Amino Transferase (AST) 36 13-40 U/L Alanine Aminotransferase (ALT) 17 7-40 U/L Alkaline Phosphatase 41 L 46-116 U/L Total Protein 6.3 5.7-8.2 g/dL Albumin 3.8 3.2-4.8 g/dL Test 01/31/24 00:50 01/30/24 23:15 01/30/24 21:35 01/30/24 19:10 Range/Units Lactic Acid Level 4.3 *H 0.4-2.0 mmol/L POC Glucose 196 H 70-106 mg/dl Prothrombin Time 10.3 9.3-11.8 sec Prothrombin Time INR 0.97 0.9-1.15 Activated Partial Thromboplast Time 20.8 L 24.5-34.5 SEC Hemoglobin A1c 7.3 H <5.7 % A1C Serum Osmolality 316 H 278-298 mOsm/kg Phosphorus Level 4.7 2.4-5.1 mg/dL Magnesium Level 2.1 1.6-2.6 mg/dL B-Type Natriuretic Peptide 164.87 0-100 pg/mL Vitamin B12 Level 1268 H 211-911 pg/mL Vitamin D 25-Hydroxy 38.6 30.0-100 ng/mL Thyroid Stimulating Hormone (TSH) 0.86 0.55-4.78 uIU/mL Urine Color Light-yellow Yellow Urine Clarity Clear Clear Urine pH 5.0 5.0-9.0 Urine Specific Mozelle 1.015 1.001-1.035 Urine Protein Negative Negative Urine Ketones Negative Negative Urine Blood 1+ H Negative /uL Urine Nitrite Negative Negative Urine Bilirubin Negative Negative Urine Urobilinogen Normal Negative mg/dL Urine Leukocyte Esterase 1+ Negative /uL Urine RBC 2 0 - 4 /hpf Urine WBC 11 0 - 5 /hpf Urine Squamous Epithelial Cells Few <5 /hpf Urine Bacteria Few H None Seen /hpf Urine Hyaline Casts Few 0 - 2 /lpf Urine Osmolality 508 mOsm/kg Urine Creatinine 43.44 30.0-125.0 mg/dL Urine Sodium 45 40-220 mmol/L Urine Glucose Normal Normal mg/dL Urine Total Protein 16.3 H 1-14 mg/dL Urine Opiates Screen Pos NEGATIVE Urine Fentanyl Screen Neg NEGATIVE Urine Barbiturates Screen Neg NEGATIVE Urine Phencyclidine Screen Neg NEGATIVE Urine Amphetamines Screen Neg NEGATIVE Urine Benzodiazepines Screen Neg NEGATIVE Urine Cocaine Screen Neg NEGATIVE Urine Cannabinoids Screen Neg NEGATIVE Test 01/30/24 18:27 01/30/24 17:43 Range/Units Influenza Type A Antigen Negative Negative Influenza Type B Antigen Negative Negative SARS-CoV-2 Antigen (Rapid) Negative NEGATIVE Differential Total Cells Counted 100.0 100 Neutrophils % (Manual) 96 H 37.0-80.0 Band Neutrophils % (Manual) 0 Lymphocytes % (Manual) 2 L 10.0-50.0 Monocytes % (Manual) 2 0-12 Eosinophils % (Manual) 0 0-7 Basophils % (Manual) 0 0.0-2.0 Metamyelocytes % (manual) 0 Myelocytes % (Manual) 0 Promyelocytes % (Manual) 0 Blast Cells % (Manual) 0 Reactive Lymphocytes 0 Platelet Estimate Adequate CHEST ABD PELVIC CTSCAN IMPRESSION: 1. Multifocal pulmonary edema and/or pneumonia. 2. No acute findings involving the abdomen or pelvis. 3. Colonic diverticulosis without diverticulitis. Problems(with codes): (1) Hypoxic respiratory failure (2) Acute on chronic diastolic heart failure (3) Generalized weakness (4) Acute renal failure (5) Hyperkalemia Plan/Recommendation PLAN Acute decompensation possibly related to immunotherapy inpatient with kidney cancer and liver metastases Hypoxic respiratory failure likely related to ARDS her CHF pneumonia and sepsis Leukocytosis with lactic acidosis GI was consulted for anemia and drop in hemoglobin hematocrit to 7.4. Patient has had some blood in the stool related to C diff She is currently hemodynamically unstable for any endoscopic workup Continue supportive care with Protonix 40 mg IV q.12 hours Monitor labs and transfuse if hemoglobin is less than 7 I will follow pt with you Plan discussed with: Other (Nurse) PHOENIX GARCIA MD Jan 31, 2024 19:47
[2024-01-31] MEDS ORDERED: FAMOTIDINE (10MG/ML) 2ML VL IV SCH (22:00)
[2024-01-31] MEDS: FAMOTIDINE (10MG/ML) 2ML VL IV SCH (22:14)
--- NOTE | 2024-01-31 23:34 | DVH ---
XY CHEST PORTABLE, HISTORY: NGT placement COMPARISON: XY CHEST PORTABLE on DOS: 01/31/24, XY CHEST PORTABLE on DOS: 01/31/24, XY CHEST PORTABLE o n DOS: 01/30/24 XY CHEST PORTABLE on DOS: 01/31/24, XY CHEST PORTABLE on DOS: 01/31/24, XY CHEST PORTABLE on DOS: TECHNICAL DATA: 1 view of the chest was obtained. FINDINGS: Lines and tubes: ET in the mid thoracic trachea. Right CVC in the RA. NG in the stomach. Cardiomediastinal silhouette: Similar Pulmonary vasculature: Similar Lung expansion: Low Lung airspace: Patchy opacities bilateral. Lung interstitium: Prominent Pleura: normal Pneumothorax: no Bones: Unremarkable Other: no IMPRESSION: ET in the mid thoracic trachea. Right CVC in the RA. NG in the stomach. Similar lung aeration bilaterally.
[2024-02-01] VITALS (116 sets, daily range): BP systolic 75–205; BP diastolic 40–101; PULSE 71–88; RESP 17–24; TEMP 97.2–99.1; O2SAT 93–100
[2024-02-01] MEDS: SODIUM CHLORIDE 0.9% 1,000 ML IV SCH (03:00)
[2024-02-01 03:58] LABS: Alanine Aminotransferase 15 U/L (7-40); Albumin 3.3 g/dL (3.2-4.8); Alkaline Phosphatase 42 U/L (46-116); Anion Gap 9 (5-15); Aspartate Aminotransferase 39 U/L (13-40); BUN/Creatinine Ratio 37.1 (10.0-20.0); Blood Urea Nitrogen 73 mg/dL (9-23); Calcium 8.7 mg/dL (8.7-10.4); Carbon Dioxide 21 mmol/L (20-31); Chloride 98 mmol/L (98-107); Glucose 275 mg/dL (74-106); Magnesium 1.9 mg/dL (1.6-2.6); Potassium 4.1 mmol/L (3.5-5.1); Sodium 128 mmol/L (136-145)
[2024-02-01 03:59] LABS: Bilirubin, Total 0.3 mg/dL (0.2-1.0); Total Protein 5.6 g/dL (5.7-8.2)
[2024-02-01 04:02] LABS: Monocytes # (auto) 0.4 10 ^3/uL (0-1.3); Monocytes % (auto) 1.9 % (0.0-12.0); Neutrophils # (auto) 21.1 10 ^3/uL (1.6-8.6); Red Cell Distribution Width 14.8 % (11.8-14.3)
[2024-02-01 04:04] LABS: Basophils # (auto) 0.1 10 ^3/uL (0-0.2); Basophils % (auto) 0.3 % (0.0-2.0); Eosinophils # (auto) 0.1 10 ^3/uL (0-0.8); Eosinophils % (auto) 0.6 % (0.0-7.0); Hematocrit 19.2 % (36.0-46.0); Lymphocytes # (auto) 0.9 10 ^3/uL (0.4-5.4); Lymphocytes % (auto) 4.2 % (10.0-50.0); Mean Corpuscular Hemoglobin 29.3 pg (28.0-32.0); Mean Corpuscular Hgb Conc. 32.7 g/dL (32.0-36.0); Mean Corpuscular Volume 89.5 fL (80.0-100.0); Nucleated Red Blood Cells % 1.2 %; Platelet Count (auto) 241 10^3/uL (140-450); Red Blood Cells 2.14 10^6/uL (4.0-5.20); White Blood Cell 22.7 10^3/uL (4.4-10.8)
[2024-02-01 04:59] LABS: Hemoglobin 6.3 g/dL (12.2-16.2)
--- NOTE | 2024-02-01 06:03 | DVH ---
CHEST RADIOGRAPH Indication:evaluate lines and tube placement as well as lung parenchyma Technique: Single frontal view of the chest was obtained COMPARISON: XY CHEST PORTABLE on DOS: 01/31/24, XY CHEST PORTABLE on DOS: 01/31/24, XY CHEST PORTABLE o n DOS: 01/31/24 FINDINGS: Lines and Tubes: Endotracheal tube, enteric catheter and right central venous catheter in satisfactor y position. Lungs: Multifocal airspace disease. Pleura: No effusion. No pneumothorax. Cardiomediastinal contours: Unremarkable Bones: Unremarkable IMPRESSION: Lines and tubes in satisfactory position. No significant interval change.
[2024-02-01 06:08] LABS: Platelet Estimate Adequate
[2024-02-01 06:11] LABS: Large Platelets FEW; Stomatocytes Few
[2024-02-01 07:14] LABS: Base Excess -5.9 mmol/L (-2.0-3.0)
--- NOTE | 2024-02-01 09:34 | MEDREC ---
[facility] ASP Intervention Section I [facility] ASP Intervention: Dose optimization(PK/PD) (FOR PNEUMONIA / SEPSIS RECOMMENDED DOSE OF CEFEPIME = 2 GR Q8H (PATIENT CRCL 20.4 => 2GR Q24H OR 1 GR Q12H)) DANIEL MANLEY PHARMACIST Feb 01, 2024 09:34
[2024-02-01] MEDS: diphenhdrAMINE HCL 12.5 MG/5 ML UD PO ONE (10:45)
--- NOTE | 2024-02-01 10:48 | DVHPN2 ---
Progress Note Date Seen: Feb 01, 2024 Has the PT tested + for MRSA If YES, has PT been informed?: No Medical Necessity Reason Pt with a Central, PICC or Fol: No Objective vital signs Vital Sign Date Time Temp Pulse Resp B/P (MAP) Pulse Ox O2 Delivery O2 Flow Rate FiO2 02/01/24 09:33 85 20 116/51 (72) 100 30 02/01/24 08:30 98.1 208.6 02/01/24 08:00 Mechanical Ventilator+ 02/01/24 08:00 0 Total Intake and Output 01/31/24 01/31/24 02/01/24 15:00 23:00 07:00 Intake Total 650 ml 660.348 ml 1096.876 ml Output Total 600 ml 510 ml Balance 650 ml 60.348 ml 586.876 ml medications Current Medications Medications Dose Ordered Sig/Porfirio Route Start Time Stop Time Status Last Admin Dose Admin Sodium Chloride 10 ml Q8HR IV 01/30/24 22:00 02/01/24 06:02 10 ML Ondansetron HCl 4 mg Q4HP PRN IV 01/30/24 21:30 01/31/24 00:09 4 MG Acetaminophen 650 mg Q6HP PRN PO 01/30/24 21:30 Morphine Sulfate 2 mg Q4HPRN PRN IV 01/30/24 21:30 01/31/24 00:09 2 MG Nitroglycerin 0.4 mg Q5MINP PRN SL 01/30/24 21:30 Morphine Sulfate 2 mg Q30M PRN IV 01/30/24 21:30 Cefepime HCl 50 ml @ 12.5 mls/hr DAILY IV 01/31/24 10:00 02/01/24 10:01 12.5 MLS/HR Sodium Chloride 1,000 ml @ 75 mls/hr [id number] IV 01/31/24 10:30 02/01/24 00:42 75 MLS/HR Iron Sucrose 110 ml @ 110 mls/hr DAILY@1200 IV 01/31/24 12:00 02/03/24 12:59 01/31/24 12:00 110 MLS/HR Vancomycin HCl 0 ml @ 0 mls/hr UD IV 01/31/24 12:45 Propofol 100 ml @ 1.836 mls/ hr Q24H IV 01/31/24 17:15 01/31/24 23:25 3.672 MLS/HR Fentanyl Citrate 250 ml @ 2.5 mls/hr Q24H IV 01/31/24 17:15 02/01/24 07:10 15 MLS/HR Norepinephrine Bitartrate 250 ml @ 3.75 mls/hr Q24H IV 01/31/24 17:15 02/01/24 06:01 37.5 MLS/HR Midazolam HCl 50 ml @ 1 mls/hr Q24H IV 01/31/24 17:30 02/01/24 07:09 5 MLS/HR Famotidine 20 mg Q12HR IV 01/31/24 22:00 UNV Famotidine 20 mg HS IV 01/31/24 22:00 01/31/24 22:14 20 MG laboratory and microbiology Laboratory Tests 02/01/24 03:27 Test 02/01/24 03:27 Range/Units Serum Glucose 275 H 74-106 mg/dL Microbiology Date/Time Source Procedure Growth Status 01/30/24 19:10 Voided Urine Urine Culture - Preliminary Resulted Problem List/Assessment/Plan Problem List/Assessment/Plan Acute kidney injury superimposed Chronic Kidney Disease stage IV secondary to dehydration Acute respiratory failure, intubated on ventilator Renal cell carcinoma status post left nephrectomy 2019 Sepsis Pseudomonas UTI Sepsis Hyponatremia due to excess H2O Anemia of chronic kidney disease Recommendations Kidney function slightly worsened today Good urine output 1100 cc Avoid nephrotoxic medications, DC vancomycin Rivers catheter Strict I&Os IVF NS at 100 cc/hour KCL replacement Furosemide 40 mg IV b.i.d IV Levophed for blood pressure support. Kidney ultrasound reported normal right kidney Cardiology consult Pulmonary consult We will continue to follow Plan discussed with: Patient My Orders My Orders Orders - RICH TONEY MD Procedure Category Date Status Time Iron Sucrose Complex PHA 01/31/24 In Process (Venofer) 12:00 RICH TONEY MD Feb 01, 2024 10:48
[2024-02-01] MEDS: FUROSEMIDE 40 MG/4 ML VIAL IV SCH (11:23)
--- NOTE | 2024-02-01 11:38 | DVHSR ---
APPROVED REPORT EXAM: Two-dimensional and M-mode echocardiogram with Doppler and color Doppler. Blood Pressure: 97/49 mmHg INDICATION SOB CHF RISK FACTORS Height: 5'5", Weight: 134 DIMENSIONS LVDd3.7 (3.8-5.7cm)LA (2D)3.5 (1.9-4.0cm)Aortic Root3.3 (2.0-3.7cm) LVDs2.6 (2.5-4.0cm)LA (MM) (1.9-4.0cm)Aortic Cusp Exc1.4 (1.5-2.0cm) EF (%) 60.0 (55-70%)Rt. Atrium3.3 (1.9-4.0cm)Asc. Aorta cm IVSd1.2 (0.7-1.1cm)RV (D) (1.8-2.4cm) PWd1.1 (0.7-1.1cm) Mitral Valve MitralMitral Stenosis E wave0.69m/sMV Mean GR.mmHg A wave1.37m/sMV Peak GR.mmHg E/A ratio0.52D MVAcm2 DECEL [id number] 1/2 Timems Aortic Valve Aortic ValveAortic Stenosis V11.34m/Ora Mean GR.5mmHg V21.46m/Ora Peak GR.9mmHg LVOT Diameter1.9 (1.8-2.4cm)Doppler AVA2.60cm2 Pulmonic Valve V21.56m/s Tricuspid Valve TR Velocity2.53m/s [id number] Other Information Technically limited study due to body habitus. Conclusion Normal left ventricular size and dimension. Normal left ventricular systolic function estimated ejec tion fraction 55%. There is a grade 1 diastolic dysfunction. Normal right ventricular size and dimension. Normal right ventricular systolic function. Normal biatrial size and dimension. Normal aortic valve structure and function. Normal mitral valve structure and function. Normal tricuspid valve structure and function. The pulmonary valve grossly normal. No pericardial effusion.
--- NOTE | 2024-02-01 16:19 | DVHPN2 ---
Progress Note - Dictate Date Seen: Feb 01, 2024 Has the PT tested + for MRSA If YES, has PT been informed?: No Medical Necessity Reason Pt with a Central, PICC or Fol: No Subjective Patient seen at bedside in ICU She is intubated sedated NG tube output currently is clear Last night she did have some residual coffee-ground about 100 mL BUN creatinine are improving; vital started improving and her vasopressors are being tapered down Her hemoglobin dropped down to 6.3 and patient has received 1 unit PRBC today for a total of 2 units PRBC vital signs Vital Sign Date Time Temp Pulse Resp B/P (MAP) Pulse Ox O2 Delivery O2 Flow Rate FiO2 02/01/24 16:04 78 20 112/56 (74) 96 30 02/01/24 15:15 98.8 209.8 02/01/24 14:00 Mechanical Ventilator+ 02/01/24 08:00 0 Total Intake and Output 01/31/24 01/31/24 02/01/24 15:00 23:00 07:00 Intake Total 650 ml 660.348 ml 1096.876 ml Output Total 600 ml 510 ml Balance 650 ml 60.348 ml 586.876 ml medications Current Medications Medications Dose Ordered Sig/Porfirio Route Start Time Stop Time Status Last Admin Dose Admin Sodium Chloride 10 ml Q8HR IV 01/30/24 22:00 02/01/24 13:38 10 ML Ondansetron HCl 4 mg Q4HP PRN IV 01/30/24 21:30 01/31/24 00:09 4 MG Acetaminophen 650 mg Q6HP PRN PO 01/30/24 21:30 Morphine Sulfate 2 mg Q4HPRN PRN IV 01/30/24 21:30 01/31/24 00:09 2 MG Nitroglycerin 0.4 mg Q5MINP PRN SL 01/30/24 21:30 Morphine Sulfate 2 mg Q30M PRN IV 01/30/24 21:30 Cefepime HCl 50 ml @ 12.5 mls/hr DAILY IV 01/31/24 10:00 02/01/24 10:01 12.5 MLS/HR Iron Sucrose 110 ml @ 110 mls/hr DAILY@1200 IV 01/31/24 12:00 02/03/24 12:59 02/01/24 11:40 110 MLS/HR Vancomycin HCl 0 ml @ 0 mls/hr UD IV 01/31/24 12:45 Propofol 100 ml @ 1.836 mls/ hr Q24H IV 01/31/24 17:15 01/31/24 23:25 3.672 MLS/HR Fentanyl Citrate 250 ml @ 2.5 mls/hr Q24H IV 01/31/24 17:15 02/01/24 07:10 15 MLS/HR Norepinephrine Bitartrate 250 ml @ 3.75 mls/hr Q24H IV 01/31/24 17:15 02/01/24 13:16 26.25 MLS/HR Midazolam HCl 50 ml @ 1 mls/hr Q24H IV 01/31/24 17:30 02/01/24 07:09 5 MLS/HR Famotidine 20 mg Q12HR IV 01/31/24 22:00 UNV Sodium Chloride 1,000 ml @ 100 mls/hr Q10H IV 02/01/24 10:45 02/01/24 10:45 100 MLS/HR Furosemide 40 mg DAILY IV 02/01/24 10:45 02/01/24 11:23 40 MG Pantoprazole Sodium 40 mg BID IV 02/01/24 22:00 objective Head: Normocephalic, atraumatic. Eyes: PERRLA. Ears: Normal external anatomy. Throat: Endotracheal tube and orogastric tube in place. Neck: Supple, trachea midline. Chest: Transmitted breath sounds bilaterally. Decreased air entry bilaterally. No wheezing. Bibasilar crackles. Cardio vascular: Positive S1, positive S2. Regular rate and rhythm. Abdomen: Positive bowel sounds in all 4 quadrants. Soft, nontender, nondistended. : Rivers in place. Normal external genitalia. Rectal: Deferred Skin: Warm, dry. Intact. Extremities: 2+ radial pulses bilaterally. No lower extremity edema. Neuro: Sedated. Pt had A line and central line placed laboratory and microbiology Laboratory Tests 02/01/24 03:27 Test 02/01/24 03:27 Range/Units Serum Glucose 275 H 74-106 mg/dL Problems(with codes): (1) Coffee ground emesis (2) Anemia (3) Hypoxic respiratory failure (4) Acute on chronic diastolic heart failure (5) Generalized weakness (6) Acute renal failure (7) Hyperkalemia Prognosis Plan Continue Pepcid 20 mg q.12 hours If the patient shows signs of any recurrent bleeding we will put her on a Protonix drip Transfuse to keep hemoglobin above seven I will be standing by for an endoscopy if the patient shows signs of active bleeding otherwise continue supportive care Acute decompensation possibly related to immunotherapy for kidney cancer and liver metastases Hypoxic respiratory failure likely related to ARDS vs CHF pneumonia and sepsis Leukocytosis with lactic acidosis Patient has had history of some blood in the stool related to C diff Continue supportive care with Pepcid 20 mg IV q.12 hours Monitor labs and transfuse if hemoglobin is less than 7 If patient develops recurrent diarrhea we can order stool for C diff I will follow pt with you Plan discussed with: Other (ICU Nurse) PHOENIX GARCIA MD Feb 01, 2024 16:19
[2024-02-01 18:03] LABS: Hematocrit 31.1 % (36.0-46.0); Hemoglobin 10.4 g/dL (12.2-16.2)
--- NOTE | 2024-02-01 18:08 | DVHPN2 ---
Progress Note - Dictate Date Seen: Feb 01, 2024 Has the PT tested + for MRSA If YES, has PT been informed?: No Medical Necessity Reason Pt with a Central, PICC or Fol: Yes The following are medically ne: Patterson Catheter Reason for patterson catheter: Strict I&O Subjective Patient seen and examined at bedside. Sedated, intubated on mechanical ventilator. Overnight events reviewed. vital signs Vital Sign Date Time Temp Pulse Resp B/P (MAP) Pulse Ox O2 Delivery O2 Flow Rate FiO2 02/01/24 17:30 95/46 02/01/24 16:04 78 20 96 30 02/01/24 15:15 98.8 209.8 02/01/24 14:00 Mechanical Ventilator+ 02/01/24 08:00 0 Total Intake and Output 01/31/24 01/31/24 02/01/24 15:00 23:00 07:00 Intake Total 650 ml 660.348 ml 1096.876 ml Output Total 600 ml 510 ml Balance 650 ml 60.348 ml 586.876 ml medications Current Medications Medications Dose Ordered Sig/Porfirio Route Start Time Stop Time Status Last Admin Dose Admin Sodium Chloride 10 ml Q8HR IV 01/30/24 22:00 02/01/24 13:38 10 ML Ondansetron HCl 4 mg Q4HP PRN IV 01/30/24 21:30 01/31/24 00:09 4 MG Acetaminophen 650 mg Q6HP PRN PO 01/30/24 21:30 Morphine Sulfate 2 mg Q4HPRN PRN IV 01/30/24 21:30 01/31/24 00:09 2 MG Nitroglycerin 0.4 mg Q5MINP PRN SL 01/30/24 21:30 Morphine Sulfate 2 mg Q30M PRN IV 01/30/24 21:30 Cefepime HCl 50 ml @ 12.5 mls/hr DAILY IV 01/31/24 10:00 02/01/24 10:01 12.5 MLS/HR Iron Sucrose 110 ml @ 110 mls/hr DAILY@1200 IV 01/31/24 12:00 02/03/24 12:59 02/01/24 11:40 110 MLS/HR Vancomycin HCl 0 ml @ 0 mls/hr UD IV 01/31/24 12:45 Propofol 100 ml @ 1.836 mls/ hr Q24H IV 01/31/24 17:15 01/31/24 23:25 3.672 MLS/HR Fentanyl Citrate 250 ml @ 2.5 mls/hr Q24H IV 01/31/24 17:15 02/01/24 07:10 15 MLS/HR Norepinephrine Bitartrate 250 ml @ 3.75 mls/hr Q24H IV 01/31/24 17:15 02/01/24 13:16 26.25 MLS/HR Midazolam HCl 50 ml @ 1 mls/hr Q24H IV 01/31/24 17:30 02/01/24 17:01 4 MLS/HR Famotidine 20 mg Q12HR IV 01/31/24 22:00 UNV Sodium Chloride 1,000 ml @ 100 mls/hr Q10H IV 02/01/24 10:45 02/01/24 10:45 100 MLS/HR Furosemide 40 mg DAILY IV 02/01/24 10:45 02/01/24 11:23 40 MG Pantoprazole Sodium 40 mg BID IV 02/01/24 22:00 objective Gen.: Patient lying in bed in medical ICU. Sedated, intubated on mechanical ventilator. Head: Normocephalic, atraumatic. Eyes: PERRLA. Ears: Normal external anatomy. Throat: Endotracheal tube and orogastric tube in place. Neck: Supple, trachea midline. Chest: Transmitted breath sounds bilaterally. Decreased air entry bilaterally. No wheezing. Bibasilar crackles. Cardiovascular: Positive S1, positive S2. Regular rate and rhythm. Abdomen: Positive bowel sounds in all 4 quadrants. Soft, nontender, nondistended. : Patterson in place. Normal external genitalia. Rectal: Deferred. Skin: Warm, dry. Intact. Extremities: 2+ radial pulses bilaterally. No lower extremity edema. Neuro: Sedated. laboratory and microbiology Laboratory Tests 02/01/24 17:07 02/01/24 03:27 Test 02/01/24 03:27 Range/Units Serum Glucose 275 H 74-106 mg/dL Assessment/Plan Impression: Acute hypoxic respiratory failure On mechanical ventilator Pneumonia, likely Gram-negative versus Gram-positive Sepsis due to pneumonia versus urinary tract infection Acute complicated urinary tract infection Hyperkalemia Hyponatremia Acute kidney injury on chronic kidney disease Hyperglycemia without diabetes mellitus type 2 Rule out C diff Pulmonary edema Metabolic acidosis Events: Remains on vent support On AC with RR 20, Vt 450, PEEP 5, Fio2 35% Taper as tolerated Pt received 2 units PRBC transfusion Monitor hemoglobin closely d/t drop in hemoglobin. GI recs appreciated. NGT shows coffee-ground material. Sedated on fentanyl. On pressors for hemodynamic support. On Levophed 18 mcg/min. Titrate to keep MAP above 65 mmHg/SBP above 90 mmHg. Continue antibiotics Will consider CPAP once hemoglobin stable. Protonix BID for GI prophylaxis. Labs and imaging reviewed Rest of plan as noted below. Plan: s/p intubation on mechanical ventilator CXR post-intubation is pending. ABG post- intubation is pending. Pt intubated due to acute hypoxic respiratory failure. On AC with RR 20, Vt 450, PEEP 5, Fio2 35% Titrate FIO2 to keep O2 saturation above 92%. VAP bundle Daily ABG and CXR while intubated. Sedate for ventilatory synchrony On pressors for hemodynamic support. Titrate to keep MAP above 65 mmHg/SBP above 90 mmHg. Right IJ central line placed for administration of medications and vasoactive medications. See separate procedure note. Left radial arterial line placed for hemodynamic monitoring and frequent ABGs. See separate procedure note. Continue antibiotics. F/u cultures. Bronchoscopy performed for ET tube placement and to obtain RML BAL obtained for sputum culture. See separate procedure note. Monitor renal function due to Acute kidney injury. Monitor electrolytes. Supplement as necessary. IVF at 75 mL/hour Creatinine trending down. Monitor hgb Transfuse if less than 7.0 g/dL Iron supplementation Transfuse if less than 7.0 g/dL. Nutritional support. Accucheks, ISS. GI prophylaxis DVT prophylaxis. Condition: Critical Prognosis: Poor given multiple comorbidities. Rest of plan per hospitalist and other consultants. A total of 35 minutes of critical care time was spent reviewing the patient record, examining the patient, making a diagnostic and therapeutic plan, discussing this plan with the medical personnel, following up on diagnostic studies and following the patient for clinical stability excluding any and all procedures. At least 50% of this time was spent in direct, [id number] contact. Thank you Dr. Doyle for allowing me to participate in this patient's care. Further recommendations will depend on patient's clinical course. Please do not hesitate to contact me if you have any questions or concerns. This medical document was created using an electronic medical record system with [employer] dictation system. Although this document has been carefully reviewed, there may still be some phonetic and typographical errors. These areas are purely typographical due to imperfections of the software programs, and do not reflect any compromise in the patient's medical care. Plan discussed with: Other (VARSHA Osborn) Critical Care Time(min): 35 DUSTIN LARA MD Feb 01, 2024 18:08
[2024-02-01] MEDS ORDERED: FAMOTIDINE (10MG/ML) 2ML VL IV SCH (22:00)
[2024-02-01] MEDS: PANTOPRAZOLE 40 MG/10 ML VIAL INJ IV SCH (22:19)
--- NOTE | 2024-02-01 22:56 | DVHPN2 ---
Subjective The patient is seen and examined at bedside. No change overnight. Reviewed: Care Plan, H&P, Labs, Medications, Previous Orders, Radiology Changes from previous H/P or p: No Changes Eyes: No Pain, No Vision change, No Conjunctivae inflammation, No Eyelid inflammation, No Other, No Redness ENT: No Ear pain, No Ear discharge, No Nose pain, No Nose discharge, No Nose congestion, No Mouth pain, No Mouth swelling, No Throat pain, No Throat swelling, No Other Cardiovascular: No Chest Pain, No Palpitations, No Orthopnea, No Paroxysmal Noc. Dyspnea, No Edema, No Lt Headedness, No Other Respiratory: Cough, Shortness of breath, SOB with excertion Gastrointestinal: Diarrhea Genitourinary: No Dysuria, No Frequency, No Incontinence, No Hematuria, No Retention, No Other Musculoskeletal: No other, No neck pain, No shoulder pain, No arm pain, No back pain, No hand pain, No leg pain, No foot pain Skin: No Rash, No Lesions, No Jaundice, No Bruising, No Other Objective Vitals Vital Signs Date Time Temp Pulse Resp B/P (MAP) Pulse Ox O2 Delivery O2 Flow Rate FiO2 02/01/24 21:48 75 20 112/51 (71) 94 30 02/01/24 21:45 98.6 209.5 02/01/24 18:00 Mechanical Ventilator+ 02/01/24 08:00 0 Intake/Output Intake and Output 02/01/24 07:00 Intake Total 2407.224 ml Output Total 1110 ml Balance 1297.224 ml Intake Oral 600 ml IV Total 1807.224 ml Output Urine Total 1000 ml Gastric Drainage Total 110 ml General Appearance: Other (Intubated, on vent,) HEENT: Atraumatic, PERRLA, EOMI, Mucous membr. moist/pink Neck: Supple Cardiovascular: Regular rate, Normal S1, Normal S2, No murmurs, Gallops Abdomen: Normal bowel sounds, Soft, No tenderness, No hepatospenomegaly Psych/Mental Status: Other (Intubated, on vent, unable to exam) Medications Current Medications Medications Dose Ordered Sig/Porfirio Route Start Time Stop Time Status Last Admin Dose Admin Sodium Chloride 10 ml Q8HR IV 01/30/24 22:00 02/01/24 22:19 10 ML Ondansetron HCl 4 mg Q4HP PRN IV 01/30/24 21:30 01/31/24 00:09 4 MG Acetaminophen 650 mg Q6HP PRN PO 01/30/24 21:30 Morphine Sulfate 2 mg Q4HPRN PRN IV 01/30/24 21:30 01/31/24 00:09 2 MG Nitroglycerin 0.4 mg Q5MINP PRN SL 01/30/24 21:30 Morphine Sulfate 2 mg Q30M PRN IV 01/30/24 21:30 Cefepime HCl 50 ml @ 12.5 mls/hr DAILY IV 01/31/24 10:00 02/01/24 10:01 12.5 MLS/HR Iron Sucrose 110 ml @ 110 mls/hr DAILY@1200 IV 01/31/24 12:00 02/03/24 12:59 02/01/24 11:40 110 MLS/HR Vancomycin HCl 0 ml @ 0 mls/hr UD IV 01/31/24 12:45 Propofol 100 ml @ 1.836 mls/ hr Q24H IV 01/31/24 17:15 01/31/24 23:25 3.672 MLS/HR Fentanyl Citrate 250 ml @ 2.5 mls/hr Q24H IV 01/31/24 17:15 02/01/24 07:10 15 MLS/HR Norepinephrine Bitartrate 250 ml @ 3.75 mls/hr Q24H IV 01/31/24 17:15 02/01/24 13:16 26.25 MLS/HR Midazolam HCl 50 ml @ 1 mls/hr Q24H IV 01/31/24 17:30 02/01/24 17:01 4 MLS/HR Famotidine 20 mg Q12HR IV 01/31/24 22:00 UNV Sodium Chloride 1,000 ml @ 100 mls/hr Q10H IV 02/01/24 10:45 02/01/24 10:45 100 MLS/HR Furosemide 40 mg DAILY IV 02/01/24 10:45 02/01/24 11:23 40 MG Pantoprazole Sodium 40 mg BID IV 02/01/24 22:00 02/01/24 22:19 40 MG Laboratory Results Laboratory Tests 02/01/24 03:27 02/01/24 17:07 Chemistry Test 02/01/24 03:27 Albumin 3.3 g/dL (3.2-4.8) Calcium Level 8.7 mg/dL (8.7-10.4) Magnesium Level 1.9 mg/dL (1.6-2.6) Total Protein 5.6 g/dL (5.7-8.2) L LFT Test 02/01/24 03:27 Alanine Aminotransferase (ALT) 15 U/L (7-40) Alkaline Phosphatase 42 U/L (46-116) L Aspartate Amino Transferase (AST) 39 U/L (13-40) Total Bilirubin 0.3 mg/dL (0.2-1.0) Urinalysis Test 01/30/24 19:10 Urine Color Light-yellow (Yellow) Urine Clarity Clear (Clear) Urine pH 5.0 (5.0-9.0) Urine Specific Cunningham 1.015 (1.001-1.035) Urine Protein Negative (Negative) Urine Ketones Negative (Negative) Urine Blood 1+ /uL (Negative) H Urine Nitrite Negative (Negative) Urine Bilirubin Negative (Negative) Urine Urobilinogen Normal mg/dL (Negative) Urine Leukocyte Esterase 1+ /uL (Negative) Urine RBC 2 /hpf (0 - 4) Urine WBC 11 /hpf (0 - 5) Urine Squamous Epithelial Cells Few /hpf (<5) Urine Bacteria Few /hpf (None Seen) H Urine Hyaline Casts Few /lpf (0 - 2) Urine Osmolality 508 mOsm/kg Urine Creatinine 43.44 mg/dL (30.0-125.0) Urine Sodium 45 mmol/L (40-220) Urine Glucose Normal mg/dL (Normal) Urine Total Protein 16.3 mg/dL (1-14) H Blood Gas Results Test 02/01/24 07:02 Arterial Blood pH 7.330 (7.350-7.450) FiO2 % 40.0 Microbiology Microbiology Date/Time Source Procedure Growth Status 01/31/24 18:52 Blood Blood Culture - Preliminary NO GROWTH AFTER 24 HOURS OF INCUBATION. Resulted 01/31/24 18:30 Nose MRSA Screen - Final Complete 01/30/24 19:10 Voided Urine Urine Culture - Preliminary Resulted Assessment/Plan Assessment/Plan Acute hypoxic respiratory failure likely due to Gram-positive/negative bacterial pneumonia -initial chest x-ray was showing pulmonary edema with slight vascular congestion -ordered CT scan of the chest, abdomen and pelvis which showed multifocal pulmonary edema and possible pneumonia. There was no acute findings involving abdomen or pelvis, colonic diverticulosis without diverticulitis -stopped doxycycline -continue vancomycin IV -continue cefepime IV -ordered sputum culture -ordered blood cultures -monitor oxygen saturation -ABG was performed showing a pH of 7.49, pCO2 of 27.1, PaO2 of 51.8 and HC03 of 20.5 consistent with respiratory alkalosis with metabolic compensation -Patient was further intubated and placed on mech vent Sepsis likely due to pneumoniae and UTI -ordered blood cultures -ordered sputum culture -ordered urine culture -continue IV antibiotics as stated above -Patient was started on vasopressors (levophed) and sedation. UTI -urinalysis came back suggesting UTI -currently on IV cefepime and vancomycin -ordered urine culture Acute normocytic normochromic anemia -hemoglobin 7.4, hematocrit 22.5 -ordered iron panel and ferritin. Iron panel came back low and ferritin on normal range most likely consistent with iron-deficiency anemia -start IV iron Hyperkalemia -ordered hyperkalemia protocol -monitor lab Hyponatremia -sodium this morning was 129 -ordered serum osmolality which came back elevated at 316 CECILIA on CKD Stage IV -creatinine is 1.89, BUN 81 and GFR 27 -status post left nephrectomy due to renal cell carcinoma on jan 2020 -monitor kidney function -nephrology on board Type 2 diabetes mellitus -hemoglobin A1c was 7.2% -currently on sliding scale insulin -monitor blood glucose Lines: Right internal jugular central line placed on 01/31/2024 Left radial arterial line placed on 01/31/24 Plan discussed with: Other (RN) Date of Service: Feb 01, 2024 Billing Provider: NAIDA GOFF MD Common Visit Codes: [id number] INP/OBS CARE(HIGH) NAIDA GOFF MD Feb 01, 2024 22:56
[2024-02-02] VITALS (109 sets, daily range): BP systolic 78–140; BP diastolic 37–64; PULSE 68–96; RESP 11–24; TEMP 96.6–101.8; O2SAT 86–99
[2024-02-02 03:28] LABS: Basophils # (auto) 0 10 ^3/uL (0-0.2); Basophils % (auto) 0.1 % (0.0-2.0); Eosinophils # (auto) 0.2 10 ^3/uL (0-0.8); Eosinophils % (auto) 1.2 % (0.0-7.0); Hematocrit 26.7 % (36.0-46.0); Hemoglobin 9.3 g/dL (12.2-16.2); Lymphocytes # (auto) 0.3 10 ^3/uL (0.4-5.4); Lymphocytes % (auto) 2.3 % (10.0-50.0); Mean Corpuscular Hemoglobin 29.9 pg (28.0-32.0); Mean Corpuscular Hgb Conc. 34.6 g/dL (32.0-36.0); Mean Corpuscular Volume 86.4 fL (80.0-100.0); Monocytes # (auto) 0.3 10 ^3/uL (0-1.3); Monocytes % (auto) 2.7 % (0.0-12.0); Neutrophils # (auto) 11.8 10 ^3/uL (1.6-8.6); Neutrophils % (auto) 93.7 % (37.0-80.0); Nucleated Red Blood Cells % 0.3 %; Platelet Count (auto) 147 10^3/uL (140-450); Red Blood Cells 3.09 10^6/uL (4.0-5.20); Red Cell Distribution Width 15.8 % (11.8-14.3); White Blood Cell 12.6 10^3/uL (4.4-10.8)
[2024-02-02 06:56] LABS: Base Excess -6.1 mmol/L (-2.0-3.0)
[2024-02-02] MEDS: DEXTROSE (50%) 50ML SYRG IV ONE (07:00)
[2024-02-02] MEDS: InsuLIN REG 1unit/0.01ml Soln (100units/ml) SC ONE (07:00)
[2024-02-02] MEDS: ACCU-CHEK COMFORT CURVE STRIP VI ONE (07:00)
[2024-02-02] MEDS ORDERED: DEXTROSE (50%) 50ML SYRG IV PRN (07:45)
[2024-02-02] MEDS: ACCU-CHEK COMFORT CURVE STRIP VI SCH (09:36)
[2024-02-02] MEDS: INSULIN LANTUS (GLARGINE) 1 /0.01ml (100units/ml) SC SCH (09:45)
[2024-02-02] MEDS: InsuLIN REG 1unit/0.01ml Soln (100units/ml) SC SCH (10:00)
--- NOTE | 2024-02-02 12:14 | DVHPN2 ---
Progress Note - Dictate Date Seen: Feb 02, 2024 Has the PT tested + for MRSA If YES, has PT been informed?: No Medical Necessity Reason Pt with a Central, PICC or Fol: Yes The following are medically ne: Patterson Catheter Reason for patterson catheter: Strict I&O vital signs Vital Sign Date Time Temp Pulse Resp B/P (MAP) Pulse Ox O2 Delivery O2 Flow Rate FiO2 02/02/24 11:14 122/51 02/02/24 11:02 81 20 97 45 02/02/24 08:00 Mechanical Ventilator+ 02/02/24 04:00 98.0 98.0 02/01/24 08:00 0 Total Intake and Output 02/01/24 02/01/24 02/02/24 15:00 23:00 07:00 Intake Total 1873.25 ml 941.75 ml 923.5 ml Output Total 1100 ml 900 ml Balance 1873.25 ml -158.25 ml 23.5 ml medications Current Medications Medications Dose Ordered Sig/Porfirio Route Start Time Stop Time Status Last Admin Dose Admin Sodium Chloride 10 ml Q8HR IV 01/30/24 22:00 02/01/24 22:19 10 ML Ondansetron HCl 4 mg Q4HP PRN IV 01/30/24 21:30 01/31/24 00:09 4 MG Acetaminophen 650 mg Q6HP PRN PO 01/30/24 21:30 Morphine Sulfate 2 mg Q4HPRN PRN IV 01/30/24 21:30 01/31/24 00:09 2 MG Nitroglycerin 0.4 mg Q5MINP PRN SL 01/30/24 21:30 Morphine Sulfate 2 mg Q30M PRN IV 01/30/24 21:30 Cefepime HCl 50 ml @ 12.5 mls/hr DAILY IV 01/31/24 10:00 02/02/24 09:27 12.5 MLS/HR Iron Sucrose 110 ml @ 110 mls/hr DAILY@1200 IV 01/31/24 12:00 02/03/24 12:59 02/01/24 11:40 110 MLS/HR Vancomycin HCl 0 ml @ 0 mls/hr UD IV 01/31/24 12:45 Propofol 100 ml @ 1.836 mls/ hr Q24H IV 01/31/24 17:15 01/31/24 23:25 3.672 MLS/HR Fentanyl Citrate 250 ml @ 2.5 mls/hr Q24H IV 01/31/24 17:15 02/01/24 23:15 15 MLS/HR Norepinephrine Bitartrate 250 ml @ 3.75 mls/hr Q24H IV 01/31/24 17:15 02/02/24 11:14 11.25 MLS/HR Midazolam HCl 50 ml @ 1 mls/hr Q24H IV 01/31/24 17:30 02/01/24 17:01 4 MLS/HR Famotidine 20 mg Q12HR IV 01/31/24 22:00 UNV Sodium Chloride 1,000 ml @ 100 mls/hr Q10H IV 02/01/24 10:45 02/02/24 04:00 100 MLS/HR Furosemide 40 mg DAILY IV 02/01/24 10:45 02/02/24 09:26 40 MG Pantoprazole Sodium 40 mg BID IV 02/01/24 22:00 02/02/24 09:27 40 MG Insulin Glargine 15 units DAILY@1000 SC 02/02/24 10:00 02/02/24 09:45 15 UNITS Diagnostic Test (Pha) 1 strip Q6HR 02/02/24 10:00 02/02/24 09:36 1 STRIP Insulin Human Regular Q6HR SC 02/02/24 10:00 Dextrose 50 ml UD PRN IV 02/02/24 07:45 objective Elderly white female Intubated Sedated No pitting edema Abdomen is soft Patterson catheter laboratory and microbiology Laboratory Tests 02/02/24 03:13 02/01/24 03:27 Test 02/01/24 03:27 Range/Units Serum Glucose 275 H 74-106 mg/dL Assessment/Plan Acute kidney injury superimposed Chronic Kidney Disease stage IV secondary to dehydration Acute respiratory failure, intubated on ventilator Renal cell carcinoma status post left nephrectomy 2019 Sepsis Pseudomonas UTI Sepsis Hyponatremia due to excess H2O Anemia of chronic kidney disease Good urine output 1100 cc Avoid nephrotoxic medications, DC vancomycin Patterson catheter Strict I&Os IVF NS at 100 cc/hour Furosemide 40 mg IV b.i.d IV Levophed for blood pressure support. Kidney ultrasound reported normal right kidney Plan discussed with: MICHELINE Barahona MD Feb 02, 2024 12:14
--- NOTE | 2024-02-02 13:14 | ECG ---
[facility] Test Date: 2024-01-30 Test Time: 16:48:52 Pat Name: SHYAM HAMLIN Department: ED Room: 0234 Gender: F [employer] Helper: JYOTSNA : [id number] Requested By: LADY MATA Order Number: [id number] Reading MD: Dann Schwartz Measurements Intervals [place] Rate: 74 P: 0 AK: 0 QRS: -3 QRSD: 111 T: 50 QT: 401 QTc: 445 Interpretive Statements Atrial fibrillation Probable left ventricular hypertrophy Electronically Signed On 02-12-2024 11:27:08 PST by Dann Schwartz Please click the below link to view image of tracing.
--- NOTE | 2024-02-02 16:40 | DVHPNRES ---
Progress Note Date Seen: Feb 02, 2024 Resident Creating Document: ALTHEA HEAD RESIDENT Has the PT tested + for MRSA If YES, has PT been informed?: No Medical Necessity Reason Pt with a Central, PICC or Fol: Yes The following are medically ne: Patterson Catheter Reason for patterson catheter: Strict I&O Subjective Review of Systems This is an 78 years old female with a PMH of HTN, HLD, left renal cell carcinoma with left nephrectomy performed on January of 2020, liver metastasis diagnosed in February of 2023 which started immunotherapy on October 10, 2023 and had three sessions (October 09, October 30 and November 21 2023). The patient also has a recent history of C diff and diarrhea on November 23, 2023 which was successfully treated and on December 26, 2023 when back to the hospital for diarrhea, fatigue and electrolyte imbalances. Now, the patient presented to the ED with the chief complaints of shortness of breathe for the last 3 days. Patient reported she has been feeling very weak since she started immunotherapy. Patient reported for the last 3 days she has been having no energy to eat and walk, associated with worsening of shortness of breath and generalized weakness without fever, nausea, vomiting, chest pain, diaphoresis and other associated symptoms. Patient also reported she had some diarrhea , noted some blood in stool by her daughter earlier to admission. Initial labs showed a WBC of 17.3, lactic acidosis at 4.3, creatinine was 1.89 and BUN 81. Urinalysis was performed and came back suggesting UTI. Patient had also mild hyponatremia. Initial chest x-ray was showing signs of mild vascular congestion or pulmonary edema. Renal ultrasound was grossly unremarkable. The patient was started empirically on IV cefepime and doxycycline. Patient was admitted for further assessment and management. Patient seen and examined in ICU department. Patient is currently intubated and sedated. On ventilator. No overnight events. Discussed all clinical findings with family. No other night event notified from manager shift. Review of systems can not be obtained given patient is intubated. Objective vital signs Vital Sign Date Time Temp Pulse Resp B/P (MAP) Pulse Ox O2 Delivery O2 Flow Rate FiO2 02/02/24 15:48 92 21 112/46 (68) 92 55 02/02/24 14:00 Mechanical Ventilator+ 02/02/24 12:00 99.9 99.9 02/01/24 08:00 0 Total Intake and Output 02/01/24 02/01/24 02/02/24 15:00 23:00 07:00 Intake Total 1873.25 ml 941.75 ml 1045.5 ml Output Total 1100 ml 900 ml Balance 1873.25 ml -158.25 ml 145.5 ml medications Current Medications Medications Dose Ordered Sig/Porfirio Route Start Time Stop Time Status Last Admin Dose Admin Sodium Chloride 10 ml Q8HR IV 01/30/24 22:00 02/01/24 22:19 10 ML Ondansetron HCl 4 mg Q4HP PRN IV 01/30/24 21:30 01/31/24 00:09 4 MG Acetaminophen 650 mg Q6HP PRN PO 01/30/24 21:30 Morphine Sulfate 2 mg Q4HPRN PRN IV 01/30/24 21:30 01/31/24 00:09 2 MG Nitroglycerin 0.4 mg Q5MINP PRN SL 01/30/24 21:30 Morphine Sulfate 2 mg Q30M PRN IV 01/30/24 21:30 Cefepime HCl 50 ml @ 12.5 mls/hr DAILY IV 01/31/24 10:00 02/02/24 09:27 12.5 MLS/HR Iron Sucrose 110 ml @ 110 mls/hr DAILY@1200 IV 01/31/24 12:00 02/03/24 12:59 02/02/24 13:17 110 MLS/HR Vancomycin HCl 0 ml @ 0 mls/hr UD IV 01/31/24 12:45 Propofol 100 ml @ 1.836 mls/ hr Q24H IV 01/31/24 17:15 01/31/24 23:25 3.672 MLS/HR Fentanyl Citrate 250 ml @ 2.5 mls/hr Q24H IV 01/31/24 17:15 02/01/24 23:15 15 MLS/HR Norepinephrine Bitartrate 250 ml @ 3.75 mls/hr Q24H IV 01/31/24 17:15 02/02/24 11:14 11.25 MLS/HR Midazolam HCl 50 ml @ 1 mls/hr Q24H IV 01/31/24 17:30 02/01/24 17:01 4 MLS/HR Famotidine 20 mg Q12HR IV 01/31/24 22:00 UNV Furosemide 40 mg DAILY IV 02/01/24 10:45 02/02/24 09:26 40 MG Pantoprazole Sodium 40 mg BID IV 02/01/24 22:00 02/02/24 09:27 40 MG Insulin Glargine 15 units DAILY@1000 SC 02/02/24 10:00 02/02/24 09:45 15 UNITS Diagnostic Test (Pha) 1 strip Q6HR 02/02/24 10:00 02/02/24 12:00 1 STRIP Insulin Human Regular Q6HR SC 02/02/24 10:00 Dextrose 50 ml UD PRN IV 02/02/24 07:45 Azithromycin 250 ml @ 125 mls/hr DAILY IV 02/03/24 10:00 Examination General Appearance: Sedated, on ventilator. Head Exam: Normal inspection Neck Exam: Normal inspection. Non-tender. Normal alignment Pulmonary/Respiratory: Chest non-tender bilateral lung base crackles Cardiovascular/Chest: Regular rate and rhythm. No murmurs. No JVD. Peripheral Pulses: 2+ Radial (R). 2+ Radial (L). 2+ Pedal (R). 2+ Pedal (L) Abdominal Exam: Normal bowel sounds. Soft. Nontender. No hepatospenomegaly. No masses Ankle Exam: Negative ankle edema Lower extremities: Negative lower extremity edema Neuro/Mental Status: Sedated laboratory and microbiology Laboratory Tests 02/02/24 03:13 02/01/24 03:27 Test 02/01/24 03:27 Range/Units Serum Glucose 275 H 74-106 mg/dL Microbiology Date/Time Source Procedure Growth Status 01/31/24 18:52 Blood Blood Culture - Preliminary NO GROWTH AFTER 24 HOURS OF INCUBATION. Resulted 01/31/24 18:30 Nose MRSA Screen - Final Complete 01/30/24 19:10 Voided Urine Urine Culture - Final Proteus vulgaris Escherichia coli Complete Problem List/Assessment/Plan Problem List/Assessment/Plan Acute hypoxic respiratory failure likely due to Gram-positive/negative bacterial pneumonia -initial chest x-ray was showing pulmonary edema with slight vascular congestion -ordered CT scan of the chest, abdomen and pelvis which showed multifocal pulmonary edema and possible pneumonia. There was no acute findings involving abdomen or pelvis, colonic diverticulosis without diverticulitis -start vancomycin IV -continue cefepime IV -on ventilator. Sepsis likely due to pneumoniae and UTI -continue IV antibiotics as stated above -Patient was started on vasopressors (levophed) and sedation. UTI -urinalysis came back suggesting UTI -currently on IV cefepime and vancomycin -ordered urine culture Acute normocytic normochromic anemia -hemoglobin 7.4, hematocrit 22.5 -start IV iron Hyperkalemia: Corrected -monitor lab Hyponatremia -monitor in a.m.. CECILIA on CKD Stage IV -status post left nephrectomy due to renal cell carcinoma on jan 2020 -monitor kidney function -nephrology on board Type 2 diabetes mellitus -hemoglobin A1c was 7.2% -currently on sliding scale insulin -monitor blood glucose Lines: Right internal jugular central line placed on 01/31/2024 Left radial arterial line placed on 01/31/24 Goals of care discussed with the patient and family at bedside for >23min, FULL CODE Events: Patient continued to be on ventilator. Continue with IV antibiotics including cefepime and vancomycin and azithromycin. Patient will be benefitted from Lasix 40 mg IV b.i.d.. Also continued Lantus insulin for diabetes mellitus. Patient is on one pressors. All clinical informed family members. Plan for to see how she is clinically response with current clinical Measures and family agree with plan before thinking about comfort measures. Currently patient is full code as per family. Plan discussed with Dr. Abernathy Plan discussed with: Daughter, Son (RN), Other My Orders My Orders Orders - ALTHEA HEAD Procedure Category Date Status Time Azithromycin 500mg/ PHA 02/03/24 In Process 250ml (Zithromax 50 10:00 Azithromycin 500mg/ PHA 02/02/24 In Process 250ml (Zithromax 50 14:45 Date of Service: Feb 02, 2024 Billing Provider: JARED ABERNATHY MD Common Visit Codes: [id number] CARE 30-74 MIN ALTHEA HEAD Feb 02, 2024 16:40 JARED ABERNATHY MD Feb 04, 2024 13:13
[2024-02-02] MEDS ORDERED: Glucerna 1.2 Cal 1Liter BOTTLE GT SCH (16:45)
[2024-02-02] MEDS: ACETAMINOPHEN 650 mg PER 20.3 mL UD GT PRN (17:18)
[2024-02-02] MEDS: AZITHROMYCIN 500MG/ 250ML 250 ML IV ONE (17:18)
[2024-02-02] MEDS: VANCOMYCIN 500 MG in D5W 5% 100 ML IV ONE (22:30)
[2024-02-02] MEDS: VANCOMYCIN HCL 1000 MG VL ONE (22:50)
[2024-02-03] VITALS (109 sets, daily range): BP systolic 83–134; BP diastolic 40–64; PULSE 68–96; RESP 10–24; TEMP 97.1–100.9; O2SAT 93–100
[2024-02-03 03:56] LABS: Basophils # (auto) 0 10 ^3/uL (0-0.2); Basophils % (auto) 0.1 % (0.0-2.0); Eosinophils # (auto) 0.1 10 ^3/uL (0-0.8); Eosinophils % (auto) 0.9 % (0.0-7.0); Hematocrit 29.2 % (36.0-46.0); Hemoglobin 9.7 g/dL (12.2-16.2); Lymphocytes # (auto) 0.2 10 ^3/uL (0.4-5.4); Lymphocytes % (auto) 1.6 % (10.0-50.0); Mean Corpuscular Hemoglobin 28.9 pg (28.0-32.0); Mean Corpuscular Hgb Conc. 33.1 g/dL (32.0-36.0); Mean Corpuscular Volume 87.3 fL (80.0-100.0); Monocytes # (auto) 0.4 10 ^3/uL (0-1.3); Monocytes % (auto) 3.2 % (0.0-12.0); Neutrophils # (auto) 11.3 10 ^3/uL (1.6-8.6); Neutrophils % (auto) 94.2 % (37.0-80.0); Nucleated Red Blood Cells % 0.1 %; Platelet Count (auto) 137 10^3/uL (140-450); Red Blood Cells 3.35 10^6/uL (4.0-5.20); Red Cell Distribution Width 16.1 % (11.8-14.3)
--- NOTE | 2024-02-03 03:56 | DVH ---
CHEST RADIOGRAPH Indication:on vent Technique: Single frontal view of the chest was obtained Comparison: XY CHEST XRAY 1 VIEW on DOS: 02/01/24, XY CHEST PORTABLE on DOS: 01/31/24, XY CHEST PORTAB LE on DOS: 01/31/24, XY CHEST PORTABLE on DOS: 01/31/24, XY CHEST PORTABLE on DOS: 01/30/24, XY CHEST XR AY 1 VIEW on DOS: 02/01/24 FINDINGS: Lines and Tubes: Endotracheal tube, enteric catheter and right central venous catheter in satisfactor y position. Lungs: Multifocal airspace disease. Pleura: No effusion. No pneumothorax. Cardiomediastinal contours: Unremarkable Bones: Unremarkable IMPRESSION: Lines and tubes in satisfactory position. No significant interval change.
[2024-02-03 04:13] LABS: Potassium 3.9 mmol/L (3.5-5.1); Sodium 140 mmol/L (136-145)
[2024-02-03 04:14] LABS: Anion Gap 7 (5-15); Calcium 8.5 mg/dL (8.7-10.4); Carbon Dioxide 24 mmol/L (20-31)
[2024-02-03 04:19] LABS: BUN/Creatinine Ratio 34.5 (10.0-20.0); Blood Urea Nitrogen 58 mg/dL (9-23); Glucose 100 mg/dL (74-106)
[2024-02-03 04:28] LABS: Chloride 109 mmol/L (98-107)
[2024-02-03 07:19] LABS: Base Excess -5.1 mmol/L (-2.0-3.0)
[2024-02-03] MEDS: AZITHROMYCIN 500MG/ 250ML 250 ML IV SCH (09:46)
--- NOTE | 2024-02-03 11:31 | DVHPN2 ---
Progress Note - Dictate Date Seen: Feb 03, 2024 Has the PT tested + for MRSA If YES, has PT been informed?: No Medical Necessity Reason Pt with a Central, PICC or Fol: Yes The following are medically ne: Patterson Catheter Reason for patterson catheter: Strict I&O Subjective hypotension noted vital signs Vital Sign Date Time Temp Pulse Resp B/P (MAP) Pulse Ox O2 Delivery O2 Flow Rate FiO2 02/03/24 11: 91 20 111/48 (69) 96 75 02/03/24 06:43 100.0 100.0 02/03/24 06:00 Mechanical Ventilator+ 02/01/24 08:00 0 Total Intake and Output 02/02/24 02/02/24 02/03/24 15:00 23:00 07:00 Intake Total 979.75 ml 456.25 ml 227.75 ml Output Total 1875 ml 450 ml Balance 979.75 ml -1418.75 ml -222.25 ml medications Current Medications Medications Dose Ordered Sig/Porfirio Route Start Time Stop Time Status Last Admin Dose Admin Sodium Chloride 10 ml Q8HR IV 01/30/24 22:00 02/03/24 06:04 10 ML Ondansetron HCl 4 mg Q4HP PRN IV 01/30/24 21:30 01/31/24 00:09 4 MG Morphine Sulfate 2 mg Q4HPRN PRN IV 01/30/24 21:30 01/31/24 00:09 2 MG Nitroglycerin 0.4 mg Q5MINP PRN SL 01/30/24 21:30 Morphine Sulfate 2 mg Q30M PRN IV 01/30/24 21:30 Cefepime HCl 50 ml @ 12.5 mls/hr DAILY IV 01/31/24 10:00 02/03/24 09:54 12.5 MLS/HR Iron Sucrose 110 ml @ 110 mls/hr DAILY@1200 IV 01/31/24 12:00 02/03/24 12:59 02/02/24 13:17 110 MLS/HR Vancomycin HCl 0 ml @ 0 mls/hr UD IV 01/31/24 12:45 Propofol 100 ml @ 1.836 mls/ hr Q24H IV 01/31/24 17:15 01/31/24 23:25 3.672 MLS/HR Fentanyl Citrate 250 ml @ 2.5 mls/hr Q24H IV 01/31/24 17:15 02/02/24 21:31 5 MLS/HR Norepinephrine Bitartrate 250 ml @ 3.75 mls/hr Q24H IV 01/31/24 17:15 02/02/24 11:14 11.25 MLS/HR Midazolam HCl 50 ml @ 1 mls/hr Q24H IV 01/31/24 17:30 02/02/24 21:33 1 MLS/HR Famotidine 20 mg Q12HR IV 01/31/24 22:00 UNV Furosemide 40 mg DAILY IV 02/01/24 10:45 02/03/24 09:45 40 MG Pantoprazole Sodium 40 mg BID IV 02/01/24 22:00 02/03/24 09:45 40 MG Insulin Glargine 15 units DAILY@1000 SC 02/02/24 10:00 02/02/24 09:45 15 UNITS Diagnostic Test (Pha) 1 strip Q6HR 02/02/24 10:00 02/03/24 06:05 1 STRIP Insulin Human Regular Q6HR SC 02/02/24 10:00 02/03/24 00:00 4 UNITS Dextrose 50 ml UD PRN IV 02/02/24 07:45 Azithromycin 250 ml @ 125 mls/hr DAILY IV 02/03/24 10:00 02/03/24 09:46 125 MLS/HR Enteral Nutritional Formula 1,000 ml 30ML/HR GT 02/02/24 16:45 Acetaminophen 650 mg Q6HP PRN GT 02/02/24 17:15 02/03/24 04:40 650 MG objective Elderly white female Intubated Sedated No pitting edema Abdomen is soft Patterson catheter laboratory and microbiology Laboratory Tests 02/03/24 03:30 Test 02/03/24 03:30 Range/Units Serum Glucose 100 74-106 mg/dL Assessment/Plan Acute kidney injury superimposed Chronic Kidney Disease stage IV secondary to dehydration Acute respiratory failure, intubated on ventilator Renal cell carcinoma status post left nephrectomy 2019 Sepsis Pseudomonas UTI Sepsis Hyponatremia due to excess H2O Anemia of chronic kidney disease Good urine output 1100 cc Avoid nephrotoxic medications, s/p vancomycin yesterday DC vancomycin level is above target Patterson catheter Strict I&Os Furosemide IV Levophed for blood pressure support. Kidney ultrasound reported normal right kidney Plan discussed with: Other MIRELLA,MICHELINE M MD Feb 03, 2024 11:30
[2024-02-03] MEDS: HYDROCORTISONE SOD SUCC 100 MG/2ML INJ VIAL IV ONE (13:13)
[2024-02-03] MEDS: FUROSEMIDE 40 MG/4 ML VIAL IV ONE (13:13)
--- NOTE | 2024-02-03 19:09 | DVHPNRES ---
Progress Note Date Seen: Feb 03, 2024 Resident Creating Document: ALTHEA HEAD RESIDENT Has the PT tested + for MRSA If YES, has PT been informed?: No Medical Necessity Reason Pt with a Central, PICC or Fol: Yes The following are medically ne: Patterson Catheter Reason for patterson catheter: Strict I&O Subjective Review of Systems This is an 78 years old female with a PMH of HTN, HLD, left renal cell carcinoma with left nephrectomy performed on January of 2020, liver metastasis diagnosed in February of 2023 which started immunotherapy on October 10, 2023 and had three sessions (October 09, October 30 and November 21 2023). The patient also has a recent history of C diff and diarrhea on November 23, 2023 which was successfully treated and on December 26, 2023 when back to the hospital for diarrhea, fatigue and electrolyte imbalances. Now, the patient presented to the ED with the chief complaints of shortness of breathe for the last 3 days. Patient reported she has been feeling very weak since she started immunotherapy. Patient reported for the last 3 days she has been having no energy to eat and walk, associated with worsening of shortness of breath and generalized weakness without fever, nausea, vomiting, chest pain, diaphoresis and other associated symptoms. Patient also reported she had some diarrhea , noted some blood in stool by her daughter earlier to admission. Initial labs showed a WBC of 17.3, lactic acidosis at 4.3, creatinine was 1.89 and BUN 81. Urinalysis was performed and came back suggesting UTI. Patient had also mild hyponatremia. Initial chest x-ray was showing signs of mild vascular congestion or pulmonary edema. Renal ultrasound was grossly unremarkable. The patient was started empirically on IV cefepime and doxycycline. Patient was admitted for further assessment and management. Patient seen and examined in ICU department. Patient is currently intubated and sedated. On ventilator. No overnight events. Discussed all clinical findings with family. No other night event notified from cnc machinist 2nd shift. Review of systems can not be obtained given patient is intubated. No other night events. Objective vital signs Vital Sign Date Time Temp Pulse Resp B/P (MAP) Pulse Ox O2 Delivery O2 Flow Rate FiO2 02/03/24 18:15 77 14 100/50 (67) 95 02/03/24 18:13 75 02/03/24 18:00 Mechanical Ventilator+ 02/03/24 16:00 97.1 97.1 11/10/24 08:00 0 Total Intake and Output 02/02/24 02/02/24 02/03/24 15:00 23:00 07:00 Intake Total 979.75 ml 456.25 ml 234.75 ml Output Total 1875 ml 450 ml Balance 979.75 ml -1418.75 ml -215.25 ml medications Current Medications Medications Dose Ordered Sig/Porfirio Route Start Time Stop Time Status Last Admin Dose Admin Sodium Chloride 10 ml Q8HR IV 01/30/24 22:00 02/03/24 14:00 10 ML Cefepime HCl 50 ml @ 12.5 mls/hr DAILY IV 01/31/24 10:00 02/03/24 09:54 12.5 MLS/HR Vancomycin HCl 0 ml @ 0 mls/hr UD IV 01/31/24 12:45 Propofol 100 ml @ 1.836 mls/ hr Q24H IV 01/31/24 17:15 01/31/24 23:25 3.672 MLS/HR Fentanyl Citrate 250 ml @ 2.5 mls/hr Q24H IV 01/31/24 17:15 02/02/24 21:31 5 MLS/HR Norepinephrine Bitartrate 250 ml @ 3.75 mls/hr Q24H IV 01/31/24 17:15 02/03/24 17:57 3.75 MLS/HR Midazolam HCl 50 ml @ 1 mls/hr Q24H IV 01/31/24 17:30 02/03/24 15:15 4 MLS/HR Famotidine 20 mg Q12HR IV 01/31/24 22:00 UNV Furosemide 40 mg DAILY IV 02/01/24 10:45 02/03/24 09:45 40 MG Pantoprazole Sodium 40 mg BID IV 02/01/24 22:00 02/03/24 09:45 40 MG Insulin Glargine 15 units DAILY@1000 SC 02/02/24 10:00 02/02/24 09:45 15 UNITS Diagnostic Test (Pha) 1 strip Q6HR 02/02/24 10:00 02/03/24 17:50 1 STRIP Insulin Human Regular Q6HR SC 02/02/24 10:00 02/03/24 18:04 3 UNITS Dextrose 50 ml UD PRN IV 02/02/24 07:45 Azithromycin 250 ml @ 125 mls/hr DAILY IV 02/03/24 10:00 02/03/24 09:46 125 MLS/HR Enteral Nutritional Formula 1,000 ml 30ML/HR GT 02/02/24 16:45 Hydrocortisone Sodium Succinate 100 mg Q12HR IV 02/03/24 22:00 Examination General Appearance: Sedated, on ventilator. Head Exam: Normal inspection Neck Exam: Normal inspection. Non-tender. Normal alignment Pulmonary/Respiratory: Chest non-tender bilateral lung base crackles Cardiovascular/Chest: Regular rate and rhythm. No murmurs. No JVD. Peripheral Pulses: 2+ Radial (R). 2+ Radial (L). 2+ Pedal (R). 2+ Pedal (L) Abdominal Exam: Normal bowel sounds. Soft. Nontender. No hepatospenomegaly. No masses Ankle Exam: Negative ankle edema Lower extremities: Negative lower extremity edema Neuro/Mental Status: Sedated laboratory and microbiology Laboratory Tests 02/03/24 03:30 Test 02/03/24 03:30 Range/Units Serum Glucose 100 74-106 mg/dL Microbiology Date/Time Source Procedure Growth Status 01/31/24 18:52 Blood Blood Culture - Preliminary NO GROWTH AFTER 72 HOURS OF INCUBATION. Resulted 01/31/24 18:30 Nose MRSA Screen - Final Complete 01/30/24 19:10 Voided Urine Urine Culture - Final Proteus vulgaris Escherichia coli Complete Problem List/Assessment/Plan Problem List/Assessment/Plan Acute hypoxic respiratory failure likely due to Gram-positive/negative bacterial pneumonia -initial chest x-ray was showing pulmonary edema with slight vascular congestion -ordered CT scan of the chest, abdomen and pelvis which showed multifocal pulmonary edema and possible pneumonia. There was no acute findings involving abdomen or pelvis, colonic diverticulosis without diverticulitis -start vancomycin IV -continue cefepime IV -Continue Azithromycin -on ventilator. Sepsis likely due to pneumoniae and UTI -continue IV antibiotics as stated above -Patient was started on vasopressors (levophed) and sedation. -IV hydrocortisone 100 mg q.12 UTI -urinalysis came back suggesting UTI -currently on IV cefepime and vancomycin -urine culture positive for E coli and Proteus vulgaris. Acute normocytic normochromic anemia -hemoglobin 7.4, hematocrit 22.5 -start IV iron Hyperkalemia: Corrected -monitor lab Hyponatremia -monitor in a.m.. CECILIA on CKD Stage IV -status post left nephrectomy due to renal cell carcinoma on jan 2020 -monitor kidney function -nephrology on board Type 2 diabetes mellitus -hemoglobin A1c was 7.2% -currently on sliding scale insulin -monitor blood glucose Lines: Right internal jugular central line placed on 01/31/2024 Left radial arterial line placed on 01/31/24 Goals of care discussed with the patient and family at bedside for >23min, FULL CODE Critical care time spent 79 minutes. Events: Patient continued to be on ventilator. Continue with IV antibiotics including cefepime and vancomycin and azithromycin. Patient will be benefitted from Lasix 40 mg IV daily.. Also continued Lantus insulin for diabetes mellitus. Patient is on one pressors. Chest x-ray showed bilateral worsening opacity. All clinical informed family members. Currently patient is full code as per family. Plan discussed with Dr. Abernathy Plan discussed with: Daughter, Son (RN), Other Date of Service: Feb 03, 2024 Billing Provider: JARED ABERNATHY MD Common Visit Codes: [id number] CARE 30-74 MIN ALTHEA HEAD RESIDENT Feb 03, 2024 19:09 JARED ABERNATHY MD Feb 04, 2024 13:21
--- NOTE | 2024-02-03 20:36 | DVHPN2 ---
Progress Note - Dictate Date Seen: Feb 03, 2024 Has the PT tested + for MRSA If YES, has PT been informed?: No Medical Necessity Reason Pt with a Central, PICC or Fol: Yes The following are medically ne: Patterson Catheter Reason for patterson catheter: Strict I&O Subjective Patient is intubated sedated No active GI bleeding, hemoglobin stable at 9.7 S/P 2 units PRBC Leukocytosis and renal fx are improving vital signs Vital Sign Date Time Temp Pulse Resp B/P (MAP) Pulse Ox O2 Delivery O2 Flow Rate FiO2 02/03/24 18:15 77 14 100/50 (67) 95 02/03/24 18:13 75 02/03/24 18:00 Mechanical Ventilator+ 02/03/24 16:00 97.1 97.1 02/01/24 08:00 0 Total Intake and Output 02/02/24 02/02/24 02/03/24 15:00 23:00 07:00 Intake Total 979.75 ml 456.25 ml 234.75 ml Output Total 1875 ml 450 ml Balance 979.75 ml -1418.75 ml -215.25 ml medications Current Medications Medications Dose Ordered Sig/Porfirio Route Start Time Stop Time Status Last Admin Dose Admin Sodium Chloride 10 ml Q8HR IV 01/30/24 22:00 02/03/24 14:00 10 ML Cefepime HCl 50 ml @ 12.5 mls/hr DAILY IV 01/31/24 10:00 02/03/24 09:54 12.5 MLS/HR Vancomycin HCl 0 ml @ 0 mls/hr UD IV 01/31/24 12:45 Propofol 100 ml @ 1.836 mls/ hr Q24H IV 01/31/24 17:15 01/31/24 23:25 3.672 MLS/HR Fentanyl Citrate 250 ml @ 2.5 mls/hr Q24H IV 01/31/24 17:15 02/02/24 21:31 5 MLS/HR Norepinephrine Bitartrate 250 ml @ 3.75 mls/hr Q24H IV 01/31/24 17:15 02/03/24 17:57 3.75 MLS/HR Midazolam HCl 50 ml @ 1 mls/hr Q24H IV 01/31/24 17:30 02/03/24 15:15 4 MLS/HR Famotidine 20 mg Q12HR IV 01/31/24 22:00 UNV Furosemide 40 mg DAILY IV 02/01/24 10:45 02/03/24 09:45 40 MG Pantoprazole Sodium 40 mg BID IV 02/01/24 22:00 02/03/24 09:45 40 MG Insulin Glargine 15 units DAILY@1000 SC 02/02/24 10:00 02/02/24 09:45 15 UNITS Diagnostic Test (Pha) 1 strip Q6HR 02/02/24 10:00 02/03/24 17:50 1 STRIP Insulin Human Regular Q6HR SC 02/02/24 10:00 02/03/24 18:04 3 UNITS Dextrose 50 ml UD PRN IV 02/02/24 07:45 Azithromycin 250 ml @ 125 mls/hr DAILY IV 02/03/24 10:00 02/03/24 09:46 125 MLS/HR Enteral Nutritional Formula 1,000 ml 30ML/HR GT 02/02/24 16:45 Hydrocortisone Sodium Succinate 100 mg Q12HR IV 02/03/24 22:00 objective Head: Normocephalic, atraumatic. Eyes: PERRLA. Ears: Normal external anatomy. Throat: Endotracheal tube and orogastric tube in place. Neck: Supple, trachea midline. Chest: Transmitted breath sounds bilaterally. Decreased air entry bilaterally. No wheezing. Bibasilar crackles. Cardio vascular: Positive S1, positive S2. Regular rate and rhythm. Abdomen: Positive bowel sounds in all 4 quadrants. Soft, nontender, nondistended. : Patterson in place. Normal external genitalia. Rectal: Deferred Skin: Warm, dry. Intact. Extremities: 2+ radial pulses bilaterally. No lower extremity edema. Neuro: Sedated. Pt had A line and central line placed laboratory and microbiology Laboratory Tests 02/03/24 03:30 Test 02/03/24 03:30 Range/Units Serum Glucose 100 74-106 mg/dL Problems(with codes): (1) Coffee ground emesis (2) Acute on chronic diastolic heart failure (3) Generalized weakness (4) Metastasis to liver (5) Renal cell cancer Prognosis Plan Continue Pepcid 20 mg q.12 hours If the patient shows signs of any recurrent bleeding we will put her on a Protonix drip Transfuse to keep hemoglobin above seven I will be standing by for an endoscopy if the patient shows signs of active bleeding otherwise continue supportive care Acute decompensation possibly related to immunotherapy for kidney cancer and liver metastases Hypoxic respiratory failure likely related to ARDS vs CHF pneumonia and sepsis Leukocytosis with lactic acidosis Patient has had history of some blood in the stool related to C diff Continue supportive care with Pepcid 20 mg IV q.12 hours Monitor labs and transfuse if hemoglobin is less than 7 If patient develops recurrent diarrhea we can order stool for C diff I will follow pt with you Plan discussed with: Other (None) PHOENIX GARCIA MD Feb 03, 2024 20:36
[2024-02-03] MEDS: HYDROCORTISONE SOD SUCC 100 MG/2ML INJ VIAL IV SCH (21:58)
[2024-02-04] VITALS (107 sets, daily range): BP systolic 82–124; BP diastolic 47–94; PULSE 57–102; RESP 12–28; TEMP 94–99.7; O2SAT 90–100
[2024-02-04 03:43] LABS: Hematocrit 28.8 % (36.0-46.0); Hemoglobin 9.6 g/dL (12.2-16.2); Mean Corpuscular Hemoglobin 29.1 pg (28.0-32.0); Mean Corpuscular Hgb Conc. 33.4 g/dL (32.0-36.0); Mean Corpuscular Volume 87.2 fL (80.0-100.0); Platelet Count (auto) 107 10^3/uL (140-450); Red Blood Cells 3.31 10^6/uL (4.0-5.20); Red Cell Distribution Width 16.5 % (11.8-14.3); White Blood Cell 12.1 10^3/uL (4.4-10.8)
[2024-02-04 03:51] LABS: Anion Gap 12 (5-15); Carbon Dioxide 22 mmol/L (20-31); Chloride 107 mmol/L (98-107); Potassium 3.6 mmol/L (3.5-5.1); Sodium 141 mmol/L (136-145)
[2024-02-04 03:53] LABS: Calcium 8.8 mg/dL (8.7-10.4)
[2024-02-04 03:57] LABS: BUN/Creatinine Ratio 37.4 (10.0-20.0); Blood Urea Nitrogen 67 mg/dL (9-23); Glucose 189 mg/dL (74-106)
[2024-02-04 04:09] LABS: Basophils % (manual) 0 (0.0-2.0); Blast Cells 0; Eosinophils % (manual) 0 (0-7); Metamyelocytes % 0; Myelocytes % 0; Promyelocytes % 0; Reactive Lymphocytes 0
--- NOTE | 2024-02-04 04:46 | DVH ---
EXAM: XY CHEST XRAY 1 VIEW Indication:ON VENT Technique: Single frontal view of the chest was obtained Comparison: XY CHEST XRAY 1 VIEW on DOS: 02/03/24, XY CHEST XRAY 1 VIEW on DOS: 02/01/24, XY CHEST PO RTABLE on DOS: 01/31/24, XY CHEST PORTABLE on DOS: 01/31/24, XY CHEST PORTABLE on DOS: 01/31/24, XY CHES T XRAY 1 VIEW on DOS: 02/03/24 FINDINGS: Lines and Tubes: Endotracheal tube, enteric catheter and right central venous catheter in satisfactor y position. Overlying wires obscures evaluation of detail. Lungs: Multifocal airspace disease. Pleura: No effusion. No pneumothorax. Cardiomediastinal contours: Unremarkable Bones: Unremarkable IMPRESSION: Lines and tubes in satisfactory position. No significant interval change.
[2024-02-04 05:03] LABS: Band Neutrophils % (manual) 5; Lymphocytes % (manual) 2 (10.0-50.0); Monocytes % (manual) 1 (0-12)
[2024-02-04 05:04] LABS: Anisocytosis Slight; Large Platelets FEW; Platelet Estimate Decreased; Stomatocytes Few
--- NOTE | 2024-02-04 15:15 | DVHPNRES ---
Progress Note Date Seen: Feb 04, 2024 Resident Creating Document: ALTHEA HEAD RESIDENT Has the PT tested + for MRSA If YES, has PT been informed?: No Medical Necessity Reason Pt with a Central, PICC or Fol: Yes The following are medically ne: Patterson Catheter Reason for patterson catheter: Strict I&O Subjective Review of Systems This is an 78 years old female with a PMH of HTN, HLD, left renal cell carcinoma with left nephrectomy performed on January of 2020, liver metastasis diagnosed in February of 2023 which started immunotherapy on October 10, 2023 and had three sessions (October 09, October 30 and November 21 2023). The patient also has a recent history of C diff and diarrhea on November 23, 2023 which was successfully treated and on December 26, 2023 when back to the hospital for diarrhea, fatigue and electrolyte imbalances. Now, the patient presented to the ED with the chief complaints of shortness of breathe for the last 3 days. Patient reported she has been feeling very weak since she started immunotherapy. Patient reported for the last 3 days she has been having no energy to eat and walk, associated with worsening of shortness of breath and generalized weakness without fever, nausea, vomiting, chest pain, diaphoresis and other associated symptoms. Patient also reported she had some diarrhea , noted some blood in stool by her daughter earlier to admission. Initial labs showed a WBC of 17.3, lactic acidosis at 4.3, creatinine was 1.89 and BUN 81. Urinalysis was performed and came back suggesting UTI. Patient had also mild hyponatremia. Initial chest x-ray was showing signs of mild vascular congestion or pulmonary edema. Renal ultrasound was grossly unremarkable. The patient was started empirically on IV cefepime and doxycycline. Patient was admitted for further assessment and management. Patient seen and examined in ICU department. Patient is currently intubated and sedated. On ventilator. No overnight events. Discussed all clinical findings with family. No other night event notified from shift lab technician. Review of systems can not be obtained given patient is intubated. No other night events. Objective vital signs Vital Sign Date Time Temp Pulse Resp B/P (MAP) Pulse Ox O2 Delivery O2 Flow Rate FiO2 02/04/24 13:00 58 15 91/49 (63) 94 02/04/24 12:07 40 02/04/24 12:00 Mechanical Ventilator+ 02/04/24 12:00 97.4 97.4 Total Intake and Output 02/03/24 02/03/24 02/04/24 15:00 23:00 07:00 Intake Total 384.75 ml 312.00 ml 455.00 ml Output Total 1650 ml 825 ml Balance 384.75 ml -1338.00 ml -370.00 ml medications Current Medications Medications Dose Ordered Sig/Porfirio Route Start Time Stop Time Status Last Admin Dose Admin Sodium Chloride 10 ml Q8HR IV 01/30/24 22:00 02/04/24 06:05 10 ML Cefepime HCl 50 ml @ 12.5 mls/hr DAILY IV 01/31/24 10:00 02/04/24 09:52 12.5 MLS/HR Propofol 100 ml @ 1.836 mls/ hr Q24H IV 01/31/24 17:15 01/31/24 23:25 3.672 MLS/HR Fentanyl Citrate 250 ml @ 2.5 mls/hr Q24H IV 01/31/24 17:15 02/04/24 06:58 10 MLS/HR Norepinephrine Bitartrate 250 ml @ 3.75 mls/hr Q24H IV 01/31/24 17:15 02/03/24 17:57 3.75 MLS/HR Midazolam HCl 50 ml @ 1 mls/hr Q24H IV 01/31/24 17:30 02/04/24 02:30 4 MLS/HR Famotidine 20 mg Q12HR IV 01/31/24 22:00 UNV Furosemide 40 mg DAILY IV 02/01/24 10:45 02/04/24 09:53 40 MG Pantoprazole Sodium 40 mg BID IV 02/01/24 22:00 02/04/24 09:52 40 MG Insulin Glargine 15 units DAILY@1000 SC 02/02/24 10:00 02/04/24 09:54 15 UNITS Diagnostic Test (Pha) 1 strip Q6HR 02/02/24 10:00 02/04/24 11:54 1 STRIP Insulin Human Regular Q6HR SC 02/02/24 10:00 02/04/24 11:57 3 UNITS Dextrose 50 ml UD PRN IV 02/02/24 07:45 Azithromycin 250 ml @ 125 mls/hr DAILY IV 02/03/24 10:00 02/04/24 13:37 125 MLS/HR Enteral Nutritional Formula 1,000 ml 30ML/HR GT 02/02/24 16:45 Hydrocortisone Sodium Succinate 100 mg Q12HR IV 02/03/24 22:00 02/04/24 09:52 100 MG Examination General Appearance: Sedated, on ventilator. Head Exam: Normal inspection Neck Exam: Normal inspection. Non-tender. Normal alignment Pulmonary/Respiratory: Chest non-tender bilateral lung base crackles Cardiovascular/Chest: Regular rate and rhythm. No murmurs. No JVD. Peripheral Pulses: 2+ Radial (R). 2+ Radial (L). 2+ Pedal (R). 2+ Pedal (L) Abdominal Exam: Normal bowel sounds. Soft. Nontender. No hepatospenomegaly. No masses Ankle Exam: Negative ankle edema Lower extremities: Negative lower extremity edema Neuro/Mental Status: Sedated laboratory and microbiology Laboratory Tests 02/04/24 03:17 Test 02/04/24 03:17 Range/Units Serum Glucose 189 H 74-106 mg/dL Microbiology Date/Time Source Procedure Growth Status 01/31/24 18:52 Blood Blood Culture - Preliminary NO GROWTH AFTER 72 HOURS OF INCUBATION. Resulted 01/31/24 18:30 Nose MRSA Screen - Final Complete 01/31/24 17:40 Sputum Expectorated Sputum Gram Stain - Final Complete 01/31/24 17:40 Sputum Expectorated Sputum Respiratory Culture - Final Complete 01/30/24 19:10 Voided Urine Urine Culture - Final Proteus vulgaris Escherichia coli Complete Problem List/Assessment/Plan Problem List/Assessment/Plan Acute hypoxic respiratory failure likely due to Gram-positive/negative bacterial pneumonia -initial chest x-ray was showing pulmonary edema with slight vascular congestion -ordered CT scan of the chest, abdomen and pelvis which showed multifocal pulmonary edema and possible pneumonia. There was no acute findings involving abdomen or pelvis, colonic diverticulosis without diverticulitis -continue cefepime IV -Continue Azithromycin -on ventilator. Sepsis likely due to pneumoniae and UTI -continue IV antibiotics as stated above -Patient was started on vasopressors (levophed) and sedation. -IV hydrocortisone 100 mg q.12 UTI -urinalysis came back suggesting UTI -currently on IV cefepime and vancomycin -urine culture positive for E coli and Proteus vulgaris. Acute normocytic normochromic anemia -continue monitoring H&H Hyperkalemia: Corrected -monitor lab Hyponatremia -monitor in a.m.. CECILIA on CKD Stage IV -status post left nephrectomy due to renal cell carcinoma on jan 2020 -monitor kidney function -nephrology on board Type 2 diabetes mellitus -hemoglobin A1c was 7.2% -currently on sliding scale insulin -monitor blood glucose Lines: Right internal jugular central line placed on 01/31/2024 Left radial arterial line placed on 01/31/24 Goals of care discussed with the patient and family at bedside for >23min, FULL CODE Critical care time spent 79 minutes. Events: Patient continued to be on ventilator. Continue with IV antibiotics including Vanco. Continue Lasix 40 mg IV daily. All clinical informed family members. Currently patient is full code as per family. Plan discussed with Dr. Abernathy Plan discussed with: Daughter (RN), Other My Orders My Orders Orders - ALTHEA HEAD RESIDENT Procedure Category Date Status Time Chest Xray 1 View XY 02/04/24 Resulted 04:00 Transfer Orders XFER 02/03/24 Transmitted 20:59 Code Status CODE 02/03/24 Transmitted 21:20 Abg W/ Co-Ox RT 02/04/24 Logged 05:17 Date of Service: Feb 04, 2024 Billing Provider: JARED ABERNATHY MD Common Visit Codes: [id number] CARE 30-74 MIN ALTHEA HEAD Feb 04, 2024 15:15 JARED ABERNATHY MD Feb 05, 2024 15:28
--- NOTE | 2024-02-04 16:07 | DVHPN2 ---
Progress Note - Dictate Date Seen: Feb 04, 2024 Has the PT tested + for MRSA If YES, has PT been informed?: No Medical Necessity Reason Pt with a Central, PICC or Fol: Yes The following are medically ne: Patterson Catheter Reason for patterson catheter: Strict I&O Subjective hypotension noted vital signs Vital Sign Date Time Temp Pulse Resp B/P (MAP) Pulse Ox O2 Delivery O2 Flow Rate FiO2 02/04/24 14:04 60 21 95/51 (66) 94 40 02/04/24 14:00 Mechanical Ventilator+ 02/04/24 12:00 97.4 97.4 Total Intake and Output 02/03/24 02/03/24 02/04/24 15:00 23:00 07:00 Intake Total 384.75 ml 312.00 ml 455.00 ml Output Total 1650 ml 825 ml Balance 384.75 ml -1338.00 ml -370.00 ml medications Current Medications Medications Dose Ordered Sig/Porfirio Route Start Time Stop Time Status Last Admin Dose Admin Sodium Chloride 10 ml Q8HR IV 01/30/24 22:00 02/04/24 14:25 10 ML Cefepime HCl 50 ml @ 12.5 mls/hr DAILY IV 01/31/24 10:00 02/04/24 09:52 12.5 MLS/HR Propofol 100 ml @ 1.836 mls/ hr Q24H IV 01/31/24 17:15 01/31/24 23:25 3.672 MLS/HR Fentanyl Citrate 250 ml @ 2.5 mls/hr Q24H IV 01/31/24 17:15 02/04/24 06:58 10 MLS/HR Norepinephrine Bitartrate 250 ml @ 3.75 mls/hr Q24H IV 01/31/24 17:15 02/03/24 17:57 3.75 MLS/HR Midazolam HCl 50 ml @ 1 mls/hr Q24H IV 01/31/24 17:30 02/04/24 02:30 4 MLS/HR Famotidine 20 mg Q12HR IV 01/31/24 22:00 UNV Furosemide 40 mg DAILY IV 02/01/24 10:45 02/04/24 09:53 40 MG Pantoprazole Sodium 40 mg BID IV 02/01/24 22:00 02/04/24 09:52 40 MG Insulin Glargine 15 units DAILY@1000 SC 02/02/24 10:00 02/04/24 09:54 15 UNITS Diagnostic Test (Pha) 1 strip Q6HR 02/02/24 10:00 02/04/24 11:54 1 STRIP Insulin Human Regular Q6HR SC 02/02/24 10:00 02/04/24 11:57 3 UNITS Dextrose 50 ml UD PRN IV 02/02/24 07:45 Azithromycin 250 ml @ 125 mls/hr DAILY IV 02/03/24 10:00 02/04/24 13:37 125 MLS/HR Enteral Nutritional Formula 1,000 ml 30ML/HR GT 02/02/24 16:45 Hydrocortisone Sodium Succinate 100 mg Q12HR IV 02/03/24 22:00 02/04/24 09:52 100 MG objective Elderly white female Intubated Sedated No pitting edema Abdomen is soft Patterson catheter laboratory and microbiology Laboratory Tests 02/04/24 03:17 Test 02/04/24 03:17 Range/Units Serum Glucose 189 H 74-106 mg/dL Assessment/Plan Acute kidney injury superimposed Chronic Kidney Disease stage IV secondary to dehydration Acute respiratory failure, intubated on ventilator Renal cell carcinoma status post left nephrectomy 2019 Sepsis Pseudomonas UTI Sepsis Hyponatremia due to excess H2O Anemia of chronic kidney disease Good urine output 2.4L Avoid nephrotoxic medications, s/p vancomycin yesterday DC vancomycin level is above target Patterson catheter Strict I&Os Furosemide IV Levophed for blood pressure support. Kidney ultrasound reported normal right kidney conservative management Plan discussed with: MICHELINE Barahona MD Feb 04, 2024 16:07
--- NOTE | 2024-02-04 20:01 | DVHPN2 ---
Progress Note - Dictate Date Seen: Feb 04, 2024 Has the PT tested + for MRSA If YES, has PT been informed?: No Medical Necessity Reason Pt with a Central, PICC or Fol: Yes The following are medically ne: Patterson Catheter Reason for patterson catheter: Strict I&O Subjective Patient is intubated sedated No active GI bleeding, hemoglobin stable at 9.6 S/P 2 units PRBC Leukocytosis and renal fx stable vital signs Vital Sign Date Time Temp Pulse Resp B/P (MAP) Pulse Ox O2 Delivery O2 Flow Rate FiO2 02/04/24 18:30 66 12 102/51 (68) 94 02/04/24 18:03 40 02/04/24 18:00 97.6 97.6 02/04/24 18:00 Mechanical Ventilator+ Total Intake and Output 02/03/24 02/03/24 02/04/24 15:00 23:00 07:00 Intake Total 384.75 ml 312.00 ml 455.00 ml Output Total 1650 ml 825 ml Balance 384.75 ml -1338.00 ml -370.00 ml medications Current Medications Medications Dose Ordered Sig/Porfirio Route Start Time Stop Time Status Last Admin Dose Admin Sodium Chloride 10 ml Q8HR IV 01/30/24 22:00 02/04/24 14:25 10 ML Cefepime HCl 50 ml @ 12.5 mls/hr DAILY IV 01/31/24 10:00 02/04/24 09:52 12.5 MLS/HR Propofol 100 ml @ 1.836 mls/ hr Q24H IV 01/31/24 17:15 01/31/24 23:25 3.672 MLS/HR Fentanyl Citrate 250 ml @ 2.5 mls/hr Q24H IV 01/31/24 17:15 02/04/24 06:58 10 MLS/HR Norepinephrine Bitartrate 250 ml @ 3.75 mls/hr Q24H IV 01/31/24 17:15 02/03/24 17:57 3.75 MLS/HR Midazolam HCl 50 ml @ 1 mls/hr Q24H IV 01/31/24 17:30 02/04/24 02:30 4 MLS/HR Famotidine 20 mg Q12HR IV 01/31/24 22:00 UNV Furosemide 40 mg DAILY IV 02/01/24 10:45 02/04/24 09:53 40 MG Pantoprazole Sodium 40 mg BID IV 02/01/24 22:00 02/04/24 09:52 40 MG Insulin Glargine 15 units DAILY@1000 SC 02/02/24 10:00 02/04/24 09:54 15 UNITS Diagnostic Test (Pha) 1 strip Q6HR 02/02/24 10:00 02/04/24 17:22 1 STRIP Insulin Human Regular Q6HR SC 02/02/24 10:00 02/04/24 17:22 3 UNITS Dextrose 50 ml UD PRN IV 02/02/24 07:45 Azithromycin 250 ml @ 125 mls/hr DAILY IV 02/03/24 10:00 02/04/24 13:37 125 MLS/HR Enteral Nutritional Formula 1,000 ml 30ML/HR GT 02/02/24 16:45 Hydrocortisone Sodium Succinate 100 mg Q12HR IV 02/03/24 22:00 02/04/24 09:52 100 MG objective Head: Normocephalic, atraumatic. Eyes: PERRLA. Ears: Normal external anatomy. Throat: Endotracheal tube and orogastric tube in place. Neck: Supple, trachea midline. Chest: Transmitted breath sounds bilaterally. Decreased air entry bilaterally. No wheezing. Bibasilar crackles. Cardio vascular: Positive S1, positive S2. Regular rate and rhythm. Abdomen: Positive bowel sounds in all 4 quadrants. Soft, nontender, nondistended. : Patterson in place. Normal external genitalia. Rectal: Deferred Skin: Warm, dry. Intact. Extremities: 2+ radial pulses bilaterally. No lower extremity edema. Neuro: Sedated. Pt had A line and central line placed laboratory and microbiology Laboratory Tests 02/04/24 03:17 Test 02/04/24 03:17 Range/Units Serum Glucose 189 H 74-106 mg/dL Problems(with codes): (1) Metastasis to liver (2) Renal cell cancer (3) Coffee ground emesis (4) Anemia (5) Hypoxic respiratory failure (6) Acute on chronic diastolic heart failure (7) Generalized weakness Prognosis Plan Continue Pepcid 20 mg q.12 hours If the patient shows signs of any recurrent bleeding we will put her on a Protonix drip Transfuse to keep hemoglobin above seven I will be standing by for an endoscopy if the patient shows signs of active bleeding otherwise continue supportive care Acute decompensation possibly related to immunotherapy for kidney cancer and liver metastases Hypoxic respiratory failure likely related to ARDS vs CHF pneumonia and sepsis Leukocytosis with lactic acidosis Patient has had history of some blood in the stool related to C diff Continue supportive care with Pepcid 20 mg IV q.12 hours Monitor labs and transfuse if hemoglobin is less than 7 If patient develops recurrent diarrhea we can order stool for C diff Plan discussed with: Other (None) PHOENIX GARCIA MD Feb 04, 2024 20:01
[2024-02-05] VITALS (106 sets, daily range): BP systolic 100–159; BP diastolic 55–84; PULSE 79–115; RESP 12–30; TEMP 97.5–99.9; O2SAT 89–99
[2024-02-05 03:43] LABS: Basophils # (auto) 0 10 ^3/uL (0-0.2); Basophils % (auto) 0.1 % (0.0-2.0); Eosinophils # (auto) 0 10 ^3/uL (0-0.8); Hematocrit 30.1 % (36.0-46.0); Lymphocytes # (auto) 0.4 10 ^3/uL (0.4-5.4); Lymphocytes % (auto) 2.7 % (10.0-50.0); Mean Corpuscular Hemoglobin 29.1 pg (28.0-32.0); Mean Corpuscular Hgb Conc. 33.1 g/dL (32.0-36.0); Mean Corpuscular Volume 88.1 fL (80.0-100.0); Monocytes # (auto) 0.5 10 ^3/uL (0-1.3); Monocytes % (auto) 3.5 % (0.0-12.0); Neutrophils # (auto) 12.2 10 ^3/uL (1.6-8.6); Neutrophils % (auto) 93.7 % (37.0-80.0); Platelet Count (auto) 119 10^3/uL (140-450); Red Blood Cells 3.42 10^6/uL (4.0-5.20); Red Cell Distribution Width 16.2 % (11.8-14.3)
[2024-02-05 03:52] LABS: Anion Gap 13 (5-15); Calcium 8.8 mg/dL (8.7-10.4); Carbon Dioxide 23 mmol/L (20-31); Chloride 108 mmol/L (98-107); Potassium 3.4 mmol/L (3.5-5.1); Sodium 144 mmol/L (136-145)
[2024-02-05 03:58] LABS: BUN/Creatinine Ratio 35.9 (10.0-20.0); Blood Urea Nitrogen 69 mg/dL (9-23); Glucose 164 mg/dL (74-106)
--- NOTE | 2024-02-05 05:44 | DVH ---
CHEST RADIOGRAPH Indication:on vent Technique: Single frontal view of the chest was obtained COMPARISON: XY CHEST XRAY 1 VIEW on DOS: 02/04/24, XY CHEST XRAY 1 VIEW on DOS: 02/03/24, XY CHEST XR AY 1 VIEW on DOS: 02/01/24 FINDINGS: Lines and Tubes: Endotracheal tube, enteric catheter and right central venous catheter in satisfactor y position. Lungs: Multifocal airspace disease. Pleura: No effusion. No pneumothorax. Cardiomediastinal contours: Unremarkable Bones: Unremarkable IMPRESSION: Lines and tubes in satisfactory position. No significant interval change.
[2024-02-05 08:29] LABS: Base Excess 0.3 mmol/L (-2.0-3.0)
[2024-02-05] MEDS: POTASSIUM CHL 20MEQ/100ML 100 ML IV ONE (10:26)
--- NOTE | 2024-02-05 16:05 | DVHPN2 ---
Progress Note - Dictate Date Seen: Feb 05, 2024 Has the PT tested + for MRSA If YES, has PT been informed?: No Medical Necessity Reason Pt with a Central, PICC or Fol: Yes The following are medically ne: Patterson Catheter Reason for patterson catheter: Strict I&O Subjective Remains intubated in ICU vital signs Vital Sign Date Time Temp Pulse Resp B/P (MAP) Pulse Ox O2 Delivery O2 Flow Rate FiO2 02/05/24 15:49 95 22 108/56 (73) 98 35 02/05/24 15:00 97.5 207.5 02/05/24 14:00 Mechanical Ventilator+ Total Intake and Output 02/04/24 02/04/24 02/05/24 15:00 23:00 07:00 Intake Total 316.50 ml 251.25 ml 256.00 ml Output Total 900 ml 350 ml Balance 316.50 ml -648.75 ml -94.00 ml medications Current Medications Medications Dose Ordered Sig/Porfirio Route Start Time Stop Time Status Last Admin Dose Admin Sodium Chloride 10 ml Q8HR IV 01/30/24 22:00 02/05/24 15:07 10 ML Cefepime HCl 50 ml @ 12.5 mls/hr DAILY IV 01/31/24 10:00 02/05/24 10:56 12.5 MLS/HR Propofol 100 ml @ 1.836 mls/ hr Q24H IV 01/31/24 17:15 01/31/24 23:25 3.672 MLS/HR Fentanyl Citrate 250 ml @ 2.5 mls/hr Q24H IV 01/31/24 17:15 02/04/24 06:58 10 MLS/HR Norepinephrine Bitartrate 250 ml @ 3.75 mls/hr Q24H IV 01/31/24 17:15 02/03/24 17:57 3.75 MLS/HR Midazolam HCl 50 ml @ 1 mls/hr Q24H IV 01/31/24 17:30 02/04/24 02:30 4 MLS/HR Famotidine 20 mg Q12HR IV 01/31/24 22:00 UNV Furosemide 40 mg DAILY IV 02/01/24 10:45 02/05/24 10:28 40 MG Pantoprazole Sodium 40 mg BID IV 02/01/24 22:00 02/05/24 10:28 40 MG Insulin Glargine 15 units DAILY@1000 SC 02/02/24 10:00 02/05/24 10:32 15 UNITS Diagnostic Test (Pha) 1 strip Q6HR 02/02/24 10:00 02/05/24 12:13 1 STRIP Insulin Human Regular Q6HR SC 02/02/24 10:00 02/05/24 12:11 3 UNITS Dextrose 50 ml UD PRN IV 02/02/24 07:45 Azithromycin 250 ml @ 125 mls/hr DAILY IV 02/03/24 10:00 02/05/24 10:28 125 MLS/HR Enteral Nutritional Formula 1,000 ml 30ML/HR GT 02/02/24 16:45 Hydrocortisone Sodium Succinate 100 mg Q12HR IV 02/03/24 22:00 02/05/24 10:28 100 MG objective Elderly white female Intubated Sedated No pitting edema Abdomen is soft Patterson catheter laboratory and microbiology Laboratory Tests 02/05/24 03:26 Test 02/05/24 03:26 Range/Units Serum Glucose 164 H 74-106 mg/dL Assessment/Plan Acute kidney injury superimposed Chronic Kidney Disease stage IV secondary to dehydration Acute respiratory failure, intubated on ventilator Renal cell carcinoma status post left nephrectomy 2019 Sepsis Pseudomonas UTI Sepsis Hyponatremia due to excess H2O Anemia of chronic kidney disease cr is uptrending however patient still has adequate UOP , will monitor clsoely vancomycin has been dc; will monitor renal function now Avoid nephrotoxic medications Patterson catheter Strict I&Os Furosemide IV Levophed for blood pressure support. Kidney ultrasound reported normal right kidney conservative management Plan discussed with: MICHELINE Barahona MD Feb 05, 2024 16:05
--- NOTE | 2024-02-05 21:14 | DVHPN2 ---
Progress Note - Dictate Date Seen: Feb 05, 2024 Has the PT tested + for MRSA If YES, has PT been informed?: No Medical Necessity Reason Pt with a Central, PICC or Fol: Yes The following are medically ne: Patterson Catheter Reason for patterson catheter: Strict I&O Subjective Patient is intubated sedated No active GI bleeding, hemoglobin stable at 10 S/P 2 units PRBC Leukocytosis and renal fx stable Patient currently on FiO2 60% with a PEEP of five Chest x-ray shows multifocal pneumonia vital signs Vital Sign Date Time Temp Pulse Resp B/P (MAP) Pulse Ox O2 Delivery O2 Flow Rate FiO2 02/05/24 21:00 97.7 106 22 141/73 (95) 94 207.9 02/05/24 20:05 45 02/05/24 20:00 Mechanical Ventilator+ Total Intake and Output 02/04/24 02/04/24 02/05/24 15:00 23:00 07:00 Intake Total 316.50 ml 251.25 ml 256.00 ml Output Total 900 ml 350 ml Balance 316.50 ml -648.75 ml -94.00 ml medications Current Medications Medications Dose Ordered Sig/Porfirio Route Start Time Stop Time Status Last Admin Dose Admin Sodium Chloride 10 ml Q8HR IV 01/30/24 22:00 02/05/24 15:07 10 ML Cefepime HCl 50 ml @ 12.5 mls/hr DAILY IV 01/31/24 10:00 02/05/24 10:56 12.5 MLS/HR Propofol 100 ml @ 1.836 mls/ hr Q24H IV 01/31/24 17:15 01/31/24 23:25 3.672 MLS/HR Fentanyl Citrate 250 ml @ 2.5 mls/hr Q24H IV 01/31/24 17:15 02/04/24 06:58 10 MLS/HR Norepinephrine Bitartrate 250 ml @ 3.75 mls/hr Q24H IV 01/31/24 17:15 02/03/24 17:57 3.75 MLS/HR Midazolam HCl 50 ml @ 1 mls/hr Q24H IV 01/31/24 17:30 02/04/24 02:30 4 MLS/HR Famotidine 20 mg Q12HR IV 01/31/24 22:00 UNV Furosemide 40 mg DAILY IV 02/01/24 10:45 02/05/24 10:28 40 MG Pantoprazole Sodium 40 mg BID IV 02/01/24 22:00 02/05/24 10:28 40 MG Insulin Glargine 15 units DAILY@1000 SC 02/02/24 10:00 02/05/24 10:32 15 UNITS Diagnostic Test (Pha) 1 strip Q6HR 02/02/24 10:00 02/05/24 18:30 1 STRIP Insulin Human Regular Q6HR SC 02/02/24 10:00 02/05/24 17:40 2 UNITS Dextrose 50 ml UD PRN IV 02/02/24 07:45 Azithromycin 250 ml @ 125 mls/hr DAILY IV 02/03/24 10:00 02/05/24 10:28 125 MLS/HR Enteral Nutritional Formula 1,000 ml 30ML/HR GT 02/02/24 16:45 Hydrocortisone Sodium Succinate 100 mg Q12HR IV 02/03/24 22:00 02/05/24 10:28 100 MG objective Head: Normocephalic, atraumatic. Eyes: PERRLA. Ears: Normal external anatomy. Throat: Endotracheal tube and orogastric tube in place. Neck: Supple, trachea midline. Chest: Transmitted breath sounds bilaterally. Decreased air entry bilaterally. No wheezing. Bibasilar crackles. Cardio vascular: Positive S1, positive S2. Regular rate and rhythm. Abdomen: Positive bowel sounds in all 4 quadrants. Soft, nontender, nondistended. : Patterson in place. Normal external genitalia. Rectal: Deferred Skin: Warm, dry. Intact. Extremities: 2+ radial pulses bilaterally. No lower extremity edema. Neuro: Sedated. Pt had A line and central line placed laboratory and microbiology Laboratory Tests 02/05/24 03:26 Test 02/05/24 03:26 Range/Units Serum Glucose 164 H 74-106 mg/dL Problems(with codes): (1) Multifocal pneumonia (2) Metastasis to liver (3) Renal cell cancer (4) Coffee ground emesis (5) Anemia (6) Hypoxic respiratory failure Prognosis Plan Continue Pepcid 20 mg q.12 hours If the patient shows signs of any recurrent bleeding we will put her on a Protonix drip Transfuse to keep hemoglobin above seven I will be standing by for an endoscopy if the patient shows signs of active bleeding otherwise continue supportive care Acute decompensation possibly related to immunotherapy for kidney cancer and liver metastases Hypoxic respiratory failure likely related to ARDS vs CHF pneumonia and sepsis Leukocytosis with lactic acidosis; patient is on IV antibiotics; add probiotics Urine culture showed Proteus vulgaris and E coli Patient has had history of some blood in the stool related to C diff Continue supportive care with Pepcid 20 mg IV q.12 hours Monitor labs and transfuse if hemoglobin is less than 7 If patient develops recurrent diarrhea we can order stool for C diff Plan discussed with: Other (None) PHOENIX GARCIA MD Feb 05, 2024 21:14
[2024-02-05] MEDS: SODIUM CHLORIDE 0.9% 500 ML IV ONE (22:40)
[2024-02-06] VITALS (102 sets, daily range): BP systolic 110–176; BP diastolic 62–121; PULSE 93–130; RESP 10–37; TEMP 97.3–98.8; O2SAT 85–99
[2024-02-06 03:47] LABS: Basophils # (auto) 0.1 10 ^3/uL (0-0.2); Basophils % (auto) 0.6 % (0.0-2.0); Eosinophils # (auto) 0 10 ^3/uL (0-0.8); Eosinophils % (auto) 0.2 % (0.0-7.0); Hematocrit 32.3 % (36.0-46.0); Hemoglobin 10.6 g/dL (12.2-16.2); Lymphocytes # (auto) 0.4 10 ^3/uL (0.4-5.4); Lymphocytes % (auto) 2.8 % (10.0-50.0); Mean Corpuscular Hemoglobin 28.8 pg (28.0-32.0); Mean Corpuscular Hgb Conc. 32.8 g/dL (32.0-36.0); Mean Corpuscular Volume 87.8 fL (80.0-100.0); Monocytes # (auto) 0.5 10 ^3/uL (0-1.3); Neutrophils # (auto) 12.2 10 ^3/uL (1.6-8.6); Neutrophils % (auto) 92.4 % (37.0-80.0); Nucleated Red Blood Cells % 0.1 %; Platelet Count (auto) 118 10^3/uL (140-450); Red Blood Cells 3.68 10^6/uL (4.0-5.20); Red Cell Distribution Width 16.5 % (11.8-14.3); White Blood Cell 13.2 10^3/uL (4.4-10.8)
[2024-02-06 03:55] LABS: Chloride 109 mmol/L (98-107); Potassium 3.2 mmol/L (3.5-5.1); Sodium 147 mmol/L (136-145)
[2024-02-06 03:56] LABS: Anion Gap 14 (5-15); Calcium 8.8 mg/dL (8.7-10.4); Carbon Dioxide 24 mmol/L (20-31)
[2024-02-06 04:01] LABS: BUN/Creatinine Ratio 42.9 (10.0-20.0); Blood Urea Nitrogen 79 mg/dL (9-23); Glucose 164 mg/dL (74-106)
[2024-02-06] MEDS: POTASSIUM CHL 20MEQ/100ML 100 ML IV ONE (05:12)
--- NOTE | 2024-02-06 05:47 | DVH ---
CHEST RADIOGRAPH Indication:PULMONARY EDEMA Technique: Single frontal view of the chest was obtained COMPARISON: XY CHEST XRAY 1 VIEW on DOS: 02/05/24, XY CHEST XRAY 1 VIEW on DOS: 02/04/24, XY CHEST XR AY 1 VIEW on DOS: 02/03/24, XY CHEST XRAY 1 VIEW on DOS: 02/05/24 FINDINGS: Lines and Tubes: Endotracheal tube, enteric catheter and right central venous catheter in satisfactor y position. Lungs: Multifocal airspace disease. Pleura: No effusion. No pneumothorax. Cardiomediastinal contours: Possible pneumomediastinum, unchanged. Bones: Unremarkable IMPRESSION: Lines and tubes in satisfactory position. No significant interval change.
[2024-02-06 07:37] LABS: Potassium 3.3 mmol/L (3.5-5.1)
[2024-02-06 07:44] LABS: Magnesium 2.3 mg/dL (1.6-2.6)
[2024-02-06 07:46] LABS: Phosphorus 3.9 mg/dL (2.4-5.1)
[2024-02-06 07:55] LABS: Base Excess 0.1 mmol/L (-2.0-3.0)
--- NOTE | 2024-02-06 11:14 | MEDREC ---
[facility] ASP Intervention Section I [facility] ASP Intervention: Review courses of therapy (PRELIMINARY SPUTUM CULTURE SHOWS MODERATE GROWTH OF YEAST. PATIENT IS IMMUNOCOMPROMISED (KIDNEY CANCER WITH LIVER METASTASIS). PLEASE CONSIDER ADDING ANTIFUNGAL FOR EMPIRIC TREATMENT) [facility] Feb 06, 2024 11:14
[2024-02-06] MEDS: MORPHINE SULFATE INJ 2 MG/ml SYRG IV SCH (16:33)
[2024-02-06] MEDS: LORazepam 2MG/ML-1ML VIAL IV PRN (16:33)
--- NOTE | 2024-02-06 18:30 | DVHPNRES ---
Progress Note Date Seen: Feb 06, 2024 Resident Creating Document: ALTHEA HEAD RESIDENT Has the PT tested + for MRSA If YES, has PT been informed?: No Medical Necessity Reason Pt with a Central, PICC or Fol: Yes The following are medically ne: Patterson Catheter Reason for patterson catheter: Strict I&O Subjective Review of Systems This is an 78 years old female with a PMH of HTN, HLD, left renal cell carcinoma with left nephrectomy performed on January of 2020, liver metastasis diagnosed in February of 2023 which started immunotherapy on October 10, 2023 and had three sessions (October 09, October 30 and November 21 2023). The patient also has a recent history of C diff and diarrhea on November 23, 2023 which was successfully treated and on December 26, 2023 when back to the hospital for diarrhea, fatigue and electrolyte imbalances. Now, the patient presented to the ED with the chief complaints of shortness of breathe for the last 3 days. Patient reported she has been feeling very weak since she started immunotherapy. Patient reported for the last 3 days she has been having no energy to eat and walk, associated with worsening of shortness of breath and generalized weakness without fever, nausea, vomiting, chest pain, diaphoresis and other associated symptoms. Patient also reported she had some diarrhea , noted some blood in stool by her daughter earlier to admission. Initial labs showed a WBC of 17.3, lactic acidosis at 4.3, creatinine was 1.89 and BUN 81. Urinalysis was performed and came back suggesting UTI. Patient had also mild hyponatremia. Initial chest x-ray was showing signs of mild vascular congestion or pulmonary edema. Renal ultrasound was grossly unremarkable. The patient was started empirically on IV cefepime and doxycycline. Patient was admitted for further assessment and management. Patient seen and examined in ICU department. patient extubated , family agree for comfort care. Objective vital signs Vital Sign Date Time Temp Pulse Resp B/P (MAP) Pulse Ox O2 Delivery O2 Flow Rate FiO2 02/06/24 18:05 115 90 156/86 02/06/24 18:00 91 Nasal Cannula* 2 28 02/06/24 16:45 98.1 208.6 Total Intake and Output 02/05/24 02/05/24 02/06/24 15:00 23:00 07:00 Intake Total 300 ml 25.0 ml Output Total 1150 ml 450 ml Balance 300 ml -1150 ml -425.0 ml medications Current Medications Medications Dose Ordered Sig/Porfirio Route Start Time Stop Time Status Last Admin Dose Admin Sodium Chloride 10 ml Q8HR IV 01/30/24 22:00 02/06/24 14:24 10 ML Cefepime HCl 50 ml @ 12.5 mls/hr DAILY IV 01/31/24 10:00 02/06/24 10:15 12.5 MLS/HR Propofol 100 ml @ 1.836 mls/ hr Q24H IV 01/31/24 17:15 01/31/24 23:25 3.672 MLS/HR Fentanyl Citrate 250 ml @ 2.5 mls/hr Q24H IV 01/31/24 17:15 02/06/24 00:49 2.5 MLS/HR Norepinephrine Bitartrate 250 ml @ 3.75 mls/hr Q24H IV 01/31/24 17:15 02/03/24 17:57 3.75 MLS/HR Midazolam HCl 50 ml @ 1 mls/hr Q24H IV 01/31/24 17:30 02/04/24 02:30 4 MLS/HR Famotidine 20 mg Q12HR IV 01/31/24 22:00 UNV Furosemide 40 mg DAILY IV 02/01/24 10:45 02/06/24 10:14 40 MG Pantoprazole Sodium 40 mg BID IV 02/01/24 22:00 02/06/24 10:09 40 MG Insulin Glargine 15 units DAILY@1000 SC 02/02/24 10:00 02/06/24 10:18 15 UNITS Diagnostic Test (Pha) 1 strip Q6HR 02/02/24 10:00 02/06/24 12:41 1 STRIP Insulin Human Regular Q6HR SC 02/02/24 10:00 02/06/24 12:41 3 UNITS Dextrose 50 ml UD PRN IV 02/02/24 07:45 Azithromycin 250 ml @ 125 mls/hr DAILY IV 02/03/24 10:00 02/06/24 10:17 125 MLS/HR Enteral Nutritional Formula 1,000 ml 30ML/HR GT 02/02/24 16:45 Dexmedetomidine HCl 400 mcg/ Dextrose 100 ml @ 3 mls/hr Q24H IV 02/06/24 07:45 02/06/24 08:10 3 MLS/HR Hydrocortisone Sodium Succinate 100 mg DAILY IV 02/07/24 10:00 Morphine Sulfate 1 mg Q1HR IV 02/06/24 17:00 02/06/24 17:35 1 MG Lorazepam 1 mg Q1HR PRN IV 02/06/24 16:15 02/06/24 17:35 1 MG Examination General Appearance: Extubated, alert but not responding to question. Head Exam: Normal inspection Neck Exam: Normal inspection. Non-tender. Normal alignment Pulmonary/Respiratory: Chest non-tender bilateral lung base crackles, accessory muscle use. Cardiovascular/Chest: Regular rate and rhythm. No murmurs. No JVD. Peripheral Pulses: 2+ Radial (R). 2+ Radial (L). 2+ Pedal (R). 2+ Pedal (L) Abdominal Exam: Normal bowel sounds. Soft. Nontender. No hepatospenomegaly. No masses Ankle Exam: Negative ankle edema Lower extremities: Negative lower extremity edema Neuro/Mental Status: Alert, But not oriented. laboratory and microbiology Laboratory Tests 02/06/24 03:35 Test 02/06/24 03:35 Range/Units Serum Glucose 164 H 74-106 mg/dL Microbiology Date/Time Source Procedure Growth Status 02/04/24 12:55 Sputum Expectorated Sputum Gram Stain - Final Resulted 02/04/24 12:55 Sputum Expectorated Sputum Respiratory Culture - Preliminary Resulted 01/31/24 18:52 Blood Blood Culture - Final NO GROWTH AFTER 5 DAYS OF INCUBATION. Complete 01/31/24 18:30 Nose MRSA Screen - Final Complete 01/30/24 19:10 Voided Urine Urine Culture - Final Proteus vulgaris Escherichia coli Complete Problem List/Assessment/Plan Problem List/Assessment/Plan Acute hypoxic respiratory failure likely due to Gram-positive/negative bacterial pneumonia Sepsis likely due to pneumoniae and UTI UTI Acute normocytic normochromic anemia Hyperkalemia: Hyponatremia CECILIA on CKD Stage IV Type 2 diabetes mellitus -Extensive discussion has been done regarding goals of care with family including son and daughter, family decided for comfort measure and extubation. Family signed document for DNI and DNR. Patient will be downgraded to telemetry.++ -Goals of care: DNI/DNR discussed greater than 30 minutes. -Critical care time spent greater than 79 minutes. -Plan discussed with Dr aguirre Plan discussed with: Daughter, Son (RN) My Orders My Orders Orders - ALTHEA HEAD Procedure Category Date Status Time D5w 5% (Dextrose 5%) PHA 02/06/24 In Process W/Dexmedetomidine 07:45 Hydrocortisone PHA 02/07/24 In Process Succinate Inj 10:00 Dietary Evaluation Review Comments: 1) Continue current plan of care Expected Outcomes/Goals: F/U in 2-3 days ALTHEA HEAD RESIDENT Feb 06, 2024 18:30
--- NOTE | 2024-02-06 18:48 | DVHPN2 ---
Progress Note - Dictate Date Seen: Feb 06, 2024 Has the PT tested + for MRSA If YES, has PT been informed?: No Medical Necessity Reason Pt with a Central, PICC or Fol: Yes The following are medically ne: Patterson Catheter Reason for patterson catheter: Strict I&O Subjective Patient underwent compassionate extubation today. Patient's vitals are stable and she is oxygenating 90% on 2 L nasal cannula No active GI bleeding, hemoglobin stable at 10.6 S/P 2 units PRBC Leukocytosis and renal fx stable Chest x-ray shows multifocal pneumonia vital signs Vital Sign Date Time Temp Pulse Resp B/P (MAP) Pulse Ox O2 Delivery O2 Flow Rate FiO2 02/06/24 18:42 117 12 158/88 02/06/24 18:00 91 Nasal Cannula* 2 28 02/06/24 16:45 98.1 208.6 Total Intake and Output 02/05/24 02/05/24 02/06/24 15:00 23:00 07:00 Intake Total 300 ml 25.0 ml Output Total 1150 ml 450 ml Balance 300 ml -1150 ml -425.0 ml medications Current Medications Medications Dose Ordered Sig/Porfirio Route Start Time Stop Time Status Last Admin Dose Admin Sodium Chloride 10 ml Q8HR IV 01/30/24 22:00 02/06/24 14:24 10 ML Cefepime HCl 50 ml @ 12.5 mls/hr DAILY IV 01/31/24 10:00 02/06/24 10:15 12.5 MLS/HR Propofol 100 ml @ 1.836 mls/ hr Q24H IV 01/31/24 17:15 01/31/24 23:25 3.672 MLS/HR Fentanyl Citrate 250 ml @ 2.5 mls/hr Q24H IV 01/31/24 17:15 02/06/24 00:49 2.5 MLS/HR Norepinephrine Bitartrate 250 ml @ 3.75 mls/hr Q24H IV 01/31/24 17:15 02/03/24 17:57 3.75 MLS/HR Midazolam HCl 50 ml @ 1 mls/hr Q24H IV 01/31/24 17:30 02/04/24 02:30 4 MLS/HR Famotidine 20 mg Q12HR IV 01/31/24 22:00 UNV Furosemide 40 mg DAILY IV 02/01/24 10:45 02/06/24 10:14 40 MG Pantoprazole Sodium 40 mg BID IV 02/01/24 22:00 02/06/24 10:09 40 MG Insulin Glargine 15 units DAILY@1000 SC 02/02/24 10:00 02/06/24 10:18 15 UNITS Diagnostic Test (Pha) 1 strip Q6HR 02/02/24 10:00 02/06/24 12:41 1 STRIP Insulin Human Regular Q6HR SC 02/02/24 10:00 02/06/24 12:41 3 UNITS Dextrose 50 ml UD PRN IV 02/02/24 07:45 Azithromycin 250 ml @ 125 mls/hr DAILY IV 02/03/24 10:00 02/06/24 10:17 125 MLS/HR Enteral Nutritional Formula 1,000 ml 30ML/HR GT 02/02/24 16:45 Dexmedetomidine HCl 400 mcg/ Dextrose 100 ml @ 3 mls/hr Q24H IV 02/06/24 07:45 02/06/24 08:10 3 MLS/HR Hydrocortisone Sodium Succinate 100 mg DAILY IV 02/07/24 10:00 Morphine Sulfate 1 mg Q1HR IV 02/06/24 17:00 02/06/24 18:42 1 MG Lorazepam 1 mg Q1HR PRN IV 02/06/24 16:15 02/06/24 18:41 1 MG objective Head: Normocephalic, atraumatic. Eyes: PERRLA.; extubated on nasal cannula Neck: Supple, trachea midline. Chest:. Decreased air entry bilaterally. No wheezing. Bibasilar crackles. Cardio vascular: Positive S1, positive S2. Regular rate and rhythm. Abdomen: Positive bowel sounds in all 4 quadrants. Soft, nontender, nondistended. : Patterson in place. Normal external genitalia. laboratory and microbiology Laboratory Tests 02/06/24 03:35 Test 02/06/24 03:35 Range/Units Serum Glucose 164 H 74-106 mg/dL Problems(with codes): (1) Multifocal pneumonia (2) Metastasis to liver (3) Renal cell cancer (4) Coffee ground emesis (5) Anemia (6) Hypoxic respiratory failure (7) Acute on chronic diastolic heart failure (8) Generalized weakness (9) Acute renal failure Prognosis Plan Patient is family has opted for compassionate extubation and comfort care measures mostly Continue supportive care Prognosis remains guarded Dietary Evaluation Review Comments: 1) Continue current plan of care Expected Outcomes/Goals: F/U in 2-3 days Plan discussed with: Other (None) PHOENIX GARCIA MD Feb 06, 2024 18:48
[2024-02-07] VITALS (8 sets, daily range): BP systolic 127–191; BP diastolic 66–100; PULSE 114–135; RESP 18–23; TEMP 97.3–98.5; O2SAT 74–87
[2024-02-07] MEDS ORDERED: HYDROCORTISONE SOD SUCC 100 MG/2ML INJ VIAL IV SCH (10:00)
[2024-02-07 11:15] LABS: Basophils # (auto) 0 10 ^3/uL (0-0.2); Basophils % (auto) 0.3 % (0.0-2.0); Eosinophils # (auto) 0 10 ^3/uL (0-0.8); Eosinophils % (auto) 0.1 % (0.0-7.0); Hematocrit 37.8 % (36.0-46.0); Hemoglobin 12.3 g/dL (12.2-16.2); Lymphocytes # (auto) 0.6 10 ^3/uL (0.4-5.4); Lymphocytes % (auto) 4.1 % (10.0-50.0); Mean Corpuscular Hemoglobin 29.2 pg (28.0-32.0); Mean Corpuscular Hgb Conc. 32.6 g/dL (32.0-36.0); Mean Corpuscular Volume 89.6 fL (80.0-100.0); Monocytes # (auto) 1.4 10 ^3/uL (0-1.3); Monocytes % (auto) 8.8 % (0.0-12.0); Neutrophils # (auto) 13.5 10 ^3/uL (1.6-8.6); Neutrophils % (auto) 86.7 % (37.0-80.0); Platelet Count (auto) 220 10^3/uL (140-450); Red Blood Cells 4.22 10^6/uL (4.0-5.20); Red Cell Distribution Width 16.7 % (11.8-14.3); White Blood Cell 15.6 10^3/uL (4.4-10.8)
[2024-02-07 11:22] LABS: Chloride 111 mmol/L (98-107); Potassium 2.7 mmol/L (3.5-5.1)
[2024-02-07 11:23] LABS: Anion Gap 13 (5-15); Calcium 9.6 mg/dL (8.7-10.4); Carbon Dioxide 30 mmol/L (20-31)
[2024-02-07 11:28] LABS: BUN/Creatinine Ratio 43.6 (10.0-20.0); Glucose 173 mg/dL (74-106)
[2024-02-07 11:29] LABS: Magnesium 2.4 mg/dL (1.6-2.6)
[2024-02-07 11:36] LABS: Blood Urea Nitrogen 68 mg/dL (9-23); Sodium 154 mmol/L (136-145)
[2024-02-07] MEDS: POTASSIUM CHL 20MEQ/100ML 100 ML IV ONE ×2 (14:00→18:28)
--- NOTE | 2024-02-07 16:24 | DVHPNRES ---
Progress Note Date Seen: Feb 07, 2024 Resident Creating Document: DEIRDRE OCONNOR RESIDENT Has the PT tested + for MRSA If YES, has PT been informed?: No Medical Necessity Reason Pt with a Central, PICC or Fol: No The following are medically ne: Patterson Catheter Reason for patterson catheter: Strict I&O Subjective Review of Systems This is an 78 years old female with a PMH of HTN, HLD, left renal cell carcinoma with left nephrectomy performed on January of 2020, liver metastasis diagnosed in February of 2023 which started immunotherapy on October 10, 2023 and had three sessions (October 09, October 30 and November 21 2023). The patient also has a recent history of C diff and diarrhea on November 23, 2023 which was successfully treated and on December 26, 2023 when back to the hospital for diarrhea, fatigue and electrolyte imbalances. Now, the patient presented to the ED with the chief complaints of shortness of breathe for the last 3 days. Patient reported she has been feeling very weak since she started immunotherapy. Patient reported for the last 3 days she has been having no energy to eat and walk, associated with worsening of shortness of breath and generalized weakness without fever, nausea, vomiting, chest pain, diaphoresis and other associated symptoms. Patient also reported she had some diarrhea , noted some blood in stool by her daughter earlier to admission. Initial labs showed a WBC of 17.3, lactic acidosis at 4.3, creatinine was 1.89 and BUN 81. Urinalysis was performed and came back suggesting UTI. Patient had also mild hyponatremia. Initial chest x-ray was showing signs of mild vascular congestion or pulmonary edema. Renal ultrasound was grossly unremarkable. The patient was started empirically on IV cefepime and doxycycline. Patient was admitted for further assessment and management. Patient seen and examined at bedside. Objective vital signs Vital Sign Date Time Temp Pulse Resp B/P (MAP) Pulse Ox O2 Delivery O2 Flow Rate FiO2 02/07/24: 136 22 142/80 02/07/24 13:07 98.3 87 98.3 02/07/24 08:00 Room Air* 0 21 Total Intake and Output 02/06/24 02/06/24 02/07/24 15:00 23:00 07:00 Intake Total 366.5 ml 17.5 ml 0 ml Output Total 1200 ml 700 ml Balance 366.5 ml -1182.5 ml -700 ml medications Current Medications Medications Dose Ordered Sig/Porfirio Route Start Time Stop Time Status Last Admin Dose Admin Famotidine 20 mg Q12HR IV 01/31/24 22:00 UNV Dextrose 50 ml UD PRN IV 02/02/24 07:45 Cancel Enteral Nutritional Formula 1,000 ml 30ML/HR GT 02/02/24 16:45 Cancel Hydrocortisone Sodium Succinate 100 mg DAILY IV 02/07/24 10:00 Cancel Morphine Sulfate 1 mg Q1HR IV 02/06/24 17:00 02/07/24 15:24 1 MG Lorazepam 1 mg Q1HR PRN IV 02/06/24 16:15 02/07/24 15:23 1 MG laboratory and microbiology Laboratory Tests 02/07/24 10:55 Test 02/07/24 10:55 Range/Units Serum Glucose 173 H 74-106 mg/dL Microbiology Date/Time Source Procedure Growth Status 02/04/24 12:55 Sputum Expectorated Sputum Gram Stain - Final Resulted 02/04/24 12:55 Sputum Expectorated Sputum Respiratory Culture - Preliminary Resulted 01/31/24 18:52 Blood Blood Culture - Final NO GROWTH AFTER 5 DAYS OF INCUBATION. Complete 01/31/24 18:30 Nose MRSA Screen - Final Complete 01/30/24 19:10 Voided Urine Urine Culture - Final Proteus vulgaris Escherichia coli Complete Problem List/Assessment/Plan Problem List/Assessment/Plan Assessment/Plan We have a long discussion with the family at bedside which were denying active treatment at this time and were wanting just comfort measures. We will still do labs and monitor electrolytes but family does not want any further treatment. Acute hypoxic respiratory failure likely due to Gram-positive/negative bacterial pneumonia -initial chest x-ray was showing pulmonary edema with slight vascular congestion -ordered CT scan of the chest, abdomen and pelvis which showed multifocal pulmonary edema and possible pneumonia. There was no acute findings involving abdomen or pelvis, colonic diverticulosis without diverticulitis -Patient completed IV abs in the ICU Sepsis likely due to pneumoniae and UTI -WBC still elevated at 15.6 -UA positive for UTI -Urine cult growed e coli and proteus vulgaris -patient completed antibiotics -No pressors at this time UTI -UA positive for UTI -Urine cult growed e coli and proteus vulgaris -patient completed antibiotics Acute normocytic normochromic anemia -hemoglobin better at 12.3 -ordered iron panel and ferritin. Iron panel came back low and ferritin on normal range most likely consistent with iron-deficiency anemia Hypokalemia -today potassium was 2.7, repleted potassium -monitor lab Hypernatremia -sodium this morning was 156 -ordered serum osmolality 316 CECILIA on CKD Stage IV -creatinine is 1.56, BUN 68 and GFR 27 -status post left nephrectomy due to renal cell carcinoma on jan 2020 -monitor kidney function -nephrology on board Type 2 diabetes mellitus -hemoglobin A1c was 7.2% -currently on sliding scale insulin -monitor blood glucose Goals of care discussed with the patient and family at bedside for >23min, D NR/DNI (confort measures) Plan discussed with Dr. Butler Plan discussed with: Patient, Daughter, Other (Family expressed that they do not want any further treatment and just one comfort measure, patient is DNR DNI) Dietary Evaluation Review Comments: 1) Continue current plan of care Expected Outcomes/Goals: F/U in 2-3 days DEIRDRE OCONNOR RESIDENT Feb 07, 2024 16:24
--- NOTE | 2024-02-07 21:28 | DVHPN2 ---
Progress Note - Dictate Date Seen: Feb 07, 2024 Has the PT tested + for MRSA If YES, has PT been informed?: No Medical Necessity Reason Pt with a Central, PICC or Fol: No The following are medically ne: Patterson Catheter Reason for patterson catheter: Strict I&O Subjective Patient underwent compassionate extubation today. Patient's vitals are stable and she is oxygenating 90% on 2 L nasal cannula No active GI bleeding, hemoglobin stable at 12.3 S/P 2 units PRBC Leukocytosis and renal fx stable Chest x-ray shows multifocal pneumonia Patient also had UTI and has completed IV antibiotic treatment vital signs Vital Sign Date Time Temp Pulse Resp B/P (MAP) Pulse Ox O2 Delivery O2 Flow Rate FiO2 02/07/24 20:19 114 18 129/77 02/07/24 16:55 98.5 82 98.5 02/07/24 08:00 Room Air* 0 21 Total Intake and Output 02/06/24 02/06/24 02/07/24 15:00 23:00 07:00 Intake Total 366.5 ml 17.5 ml 0 ml Output Total 1200 ml 700 ml Balance 366.5 ml -1182.5 ml -700 ml medications Current Medications Medications Dose Ordered Sig/Porfirio Route Start Time Stop Time Status Last Admin Dose Admin Famotidine 20 mg Q12HR IV 01/31/24 22:00 UNV Dextrose 50 ml UD PRN IV 02/02/24 07:45 Cancel Enteral Nutritional Formula 1,000 ml 30ML/HR GT 02/02/24 16:45 Cancel Hydrocortisone Sodium Succinate 100 mg DAILY IV 02/07/24 10:00 Cancel Morphine Sulfate 1 mg Q1HR IV 02/06/24 17:00 02/07/24 20:19 1 MG Lorazepam 1 mg Q1HR PRN IV 02/06/24 16:15 02/07/24 20:04 1 MG objective Head: Normocephalic, atraumatic. Eyes: PERRLA.; extubated on nasal cannula Neck: Supple, trachea midline. Chest:. Decreased air entry bilaterally. No wheezing. Bibasilar crackles. Cardio vascular: Positive S1, positive S2. Regular rate and rhythm. Abdomen: Positive bowel sounds in all 4 quadrants. Soft, nontender, nondistended. : Patterson in place. Normal external genitalia. laboratory and microbiology Laboratory Tests 02/07/24 10:55 Test 02/07/24 10:55 Range/Units Serum Glucose 173 H 74-106 mg/dL Problems(with codes): (1) Renal cell cancer (2) Metastasis to liver (3) Multifocal pneumonia (4) Coffee ground emesis (5) Anemia Prognosis Plan Family had decided on comfort measures and do not any want any further intervention Patient is going to be transferred to hospice when that can be arranged Prognosis remains guarded Continue supportive care Dietary Evaluation Review Comments: 1) Continue current plan of care Expected Outcomes/Goals: F/U in 2-3 days Plan discussed with: Other (Nurse) PHOENIX GARCIA MD Feb 07, 2024 21:28
--- NOTE | 2024-02-07 22:17 | DVHPN2 ---
Progress Note - Dictate Date Seen: Feb 07, 2024 Has the PT tested + for MRSA If YES, has PT been informed?: No Medical Necessity Reason Pt with a Central, PICC or Fol: Yes The following are medically ne: Patterson Catheter Reason for patterson catheter: Strict I&O Subjective Patient seen and examined at bedside. Sedated, intubated on mechanical ventilator. Overnight events reviewed. vital signs Vital Sign Date Time Temp Pulse Resp B/P (MAP) Pulse Ox O2 Delivery O2 Flow Rate FiO2 02/07/24 22:05 135 22 152/90 02/07/24 21:00 98.2 74 98.2 02/07/24 08:00 Room Air* 0 21 Total Intake and Output 02/06/24 02/06/24 02/07/24 15:00 23:00 07:00 Intake Total 366.5 ml 17.5 ml 0 ml Output Total 1200 ml 700 ml Balance 366.5 ml -1182.5 ml -700 ml medications Current Medications Medications Dose Ordered Sig/Porfirio Route Start Time Stop Time Status Last Admin Dose Admin Famotidine 20 mg Q12HR IV 01/31/24 22:00 UNV Dextrose 50 ml UD PRN IV 02/02/24 07:45 Cancel Enteral Nutritional Formula 1,000 ml 30ML/HR GT 02/02/24 16:45 Cancel Hydrocortisone Sodium Succinate 100 mg DAILY IV 02/07/24 10:00 Cancel Morphine Sulfate 1 mg Q1HR IV 02/06/24 17:00 02/07/24 22:05 1 MG Lorazepam 1 mg Q1HR PRN IV 02/06/24 16:15 02/07/24 22:04 1 MG objective Gen.: Patient lying in bed in medical ICU. Sedated, intubated on mechanical ventilator. Head: Normocephalic, atraumatic. Eyes: PERRLA. Ears: Normal external anatomy. Throat: Endotracheal tube and orogastric tube in place. Neck: Supple, trachea midline. Chest: Transmitted breath sounds bilaterally. Decreased air entry bilaterally. No wheezing. Bibasilar crackles. Cardiovascular: Positive S1, positive S2. Regular rate and rhythm. Abdomen: Positive bowel sounds in all 4 quadrants. Soft, nontender, nondistended. : Patterson in place. Normal external genitalia. Rectal: Deferred. Skin: Warm, dry. Intact. Extremities: 2+ radial pulses bilaterally. No lower extremity edema. Neuro: Sedated. laboratory and microbiology Laboratory Tests 02/07/24 10:55 Test 02/07/24 10:55 Range/Units Serum Glucose 173 H 74-106 mg/dL Assessment/Plan Impression: Acute hypoxic respiratory failure On mechanical ventilator Pneumonia, likely Gram-negative versus Gram-positive Sepsis due to pneumonia versus urinary tract infection Acute complicated urinary tract infection Hyperkalemia Hyponatremia Acute kidney injury on chronic kidney disease Hyperglycemia without diabetes mellitus type 2 Rule out C diff Pulmonary edema Metabolic acidosis Events: CXR reviewed, demonstrates multifocal opacities. We will discontinue all medications Supportive care. Patient is DNR/DNI Signing off care - please reconsult as necessary. Plan: s/p intubation on mechanical ventilator Pt intubated due to acute hypoxic respiratory failure. On AC with RR 16, Vt 400, PEEP 5, Fio2 45% Titrate FIO2 to keep O2 saturation above 92%. VAP bundle Daily ABG and CXR while intubated. Sedate for ventilatory synchrony On pressors for hemodynamic support. Titrate to keep MAP above 65 mmHg/SBP above 90 mmHg. Right IJ central line placed for administration of medications and vasoactive medications. See separate procedure note. Left radial arterial line placed for hemodynamic monitoring and frequent ABGs. See separate procedure note. Continue antibiotics. F/u cultures. Bronchoscopy performed for ET tube placement and to obtain RML BAL obtained for sputum culture. See separate procedure note. Monitor renal function due to Acute kidney injury. Monitor electrolytes. Supplement as necessary. IVF at 75 mL/hour Creatinine trending down. Monitor hgb Transfuse if less than 7.0 g/dL Iron supplementation Transfuse if less than 7.0 g/dL. Nutritional support. Accucheks, ISS. GI prophylaxis DVT prophylaxis. Prognosis: Poor given multiple comorbidities. Rest of plan per hospitalist and other consultants. Thank you Dr. Doyle for allowing me to participate in this patient's care. Further recommendations will depend on patient's clinical course. Please do not hesitate to contact me if you have any questions or concerns. This medical document was created using an electronic medical record system with [employer] system. Although this document has been carefully reviewed, there may still be some phonetic and typographical errors. These areas are purely typographical due to imperfections of the software programs, and do not reflect any compromise in the patient's medical care. Dietary Evaluation Review Comments: 1) Continue current plan of care Expected Outcomes/Goals: F/U in 2-3 days Plan discussed with: Other (RN) DUSTIN LARA MD Feb 07, 2024 22:17
[2024-02-08] VITALS (8 sets, daily range): BP systolic 129–143; BP diastolic 66–87; PULSE 85–149; RESP 20–38; TEMP 97.9–101.9; O2SAT 67–92
[2024-02-08 06:36] LABS: Basophils # (auto) 0 10 ^3/uL (0-0.2); Basophils % (auto) 0.1 % (0.0-2.0); Eosinophils # (auto) 0 10 ^3/uL (0-0.8); Eosinophils % (auto) 0.3 % (0.0-7.0); Hematocrit 37.7 % (36.0-46.0); Hemoglobin 12.5 g/dL (12.2-16.2); Lymphocytes # (auto) 0.6 10 ^3/uL (0.4-5.4); Lymphocytes % (auto) 4.7 % (10.0-50.0); Mean Corpuscular Hemoglobin 29.4 pg (28.0-32.0); Monocytes # (auto) 1.1 10 ^3/uL (0-1.3); Monocytes % (auto) 8.4 % (0.0-12.0); Neutrophils # (auto) 11.6 10 ^3/uL (1.6-8.6); Neutrophils % (auto) 86.5 % (37.0-80.0); Nucleated Red Blood Cells % 0.1 %; Platelet Count (auto) 206 10^3/uL (140-450); Red Blood Cells 4.24 10^6/uL (4.0-5.20); Red Cell Distribution Width 16.8 % (11.8-14.3); White Blood Cell 13.4 10^3/uL (4.4-10.8)
[2024-02-08 06:39] LABS: Anion Gap 12 (5-15); Calcium 9.9 mg/dL (8.7-10.4); Carbon Dioxide 29 mmol/L (20-31); Chloride 117 mmol/L (98-107); Potassium 3.7 mmol/L (3.5-5.1); Sodium 158 mmol/L (136-145)
[2024-02-08 06:45] LABS: BUN/Creatinine Ratio 40.6 (10.0-20.0); Blood Urea Nitrogen 71 mg/dL (9-23); Glucose 186 mg/dL (74-106); Magnesium 2.6 mg/dL (1.6-2.6)
--- NOTE | 2024-02-08 11:37 | DVHPNRES ---
Progress Note Date Seen: Feb 08, 2024 Resident Creating Document: GENE CÁRDENAS RESIDENT Has the PT tested + for MRSA If YES, has PT been informed?: No Medical Necessity Reason Pt with a Central, PICC or Fol: No The following are medically ne: Patterson Catheter Reason for patterson catheter: Strict I&O Subjective Review of Systems This is an 78 years old female with a PMH of HTN, HLD, left renal cell carcinoma with left nephrectomy performed on January of 2020, liver metastasis diagnosed in February of 2023 which started immunotherapy on October 10, 2023 and had three sessions (October 09, October 30 and November 21 2023). The patient also has a recent history of C diff and diarrhea on November 23, 2023 which was successfully treated and on December 26, 2023 when back to the hospital for diarrhea, fatigue and electrolyte imbalances. Now, the patient presented to the ED with the chief complaints of shortness of breathe for the last 3 days. Patient reported she has been feeling very weak since she started immunotherapy. Patient reported for the last 3 days she has been having no energy to eat and walk, associated with worsening of shortness of breath and generalized weakness without fever, nausea, vomiting, chest pain, diaphoresis and other associated symptoms. Patient also reported she had some diarrhea , noted some blood in stool by her daughter earlier to admission. Initial labs showed a WBC of 17.3, lactic acidosis at 4.3, creatinine was 1.89 and BUN 81. Urinalysis was performed and came back suggesting UTI. Patient had also mild hyponatremia. Initial chest x-ray was showing signs of mild vascular congestion or pulmonary edema. Renal ultrasound was grossly unremarkable. The patient was started empirically on IV cefepime and doxycycline. Patient was admitted for further assessment and management. Patient seen and examined at bedside. Patient unconscious, nonverbal. Patient sounds like aspirating. Patient in comfort care and social work faculty member is working on to get a placement for hospice care for the patient as family requested. Social service on 02/08/2024 wrote-"Re sent the pt's clinicals to [facility] via fax as requested by Justina at [facility]. Per Zelda, she did not receive the clinicals yesterday". Right also spoke to daughter August 25 and son-in-law Patel. Daughter reported she is waiting to hear back about hospice care arrangement. Objective vital signs Vital Sign Date Time Temp Pulse Resp B/P (MAP) Pulse Ox O2 Delivery O2 Flow Rate FiO2 02/08/24 11:26 145 30 147/90 02/08/24 09:02 98.6 89 98.6 02/07/24 20:00 Nasal Cannula* 2 28 Total Intake and Output 02/07/24 02/07/24 02/08/24 15:00 23:00 07:00 Intake Total 1320 ml Output Total 0 ml 350 ml Balance 1320 ml -350 ml medications Current Medications Medications Dose Ordered Sig/Porfirio Route Start Time Stop Time Status Last Admin Dose Admin Famotidine 20 mg Q12HR IV 01/31/24 22:00 UNV Dextrose 50 ml UD PRN IV 02/02/24 07:45 Cancel Enteral Nutritional Formula 1,000 ml 30ML/HR GT 02/02/24 16:45 Cancel Hydrocortisone Sodium Succinate 100 mg DAILY IV 02/07/24 10:00 Cancel Morphine Sulfate 1 mg Q1HR IV 02/06/24 17:00 02/08/24 11:26 1 MG Lorazepam 1 mg Q1HR PRN IV 02/06/24 16:15 02/08/24 11:26 1 MG Examination General examination- patient unconscious, no eye opening Cardiovascular- S1-S2 audible, rate and rhythm regular, no murmur Respiratory- bilateral lung crackles+ Gastrointestinal-nontender, bowel sound+. Nondistended laboratory and microbiology Laboratory Tests 02/08/24 05:23 Test 02/08/24 05:23 Range/Units Serum Glucose 186 H 74-106 mg/dL Microbiology Date/Time Source Procedure Growth Status 02/04/24 12:55 Sputum Expectorated Sputum Gram Stain - Final Complete 02/04/24 12:55 Respiratory Culture - Final Presumptive Susana albicans Complete 01/31/24 18:52 Blood Blood Culture - Final NO GROWTH AFTER 5 DAYS OF INCUBATION. Complete 01/31/24 18:30 Nose MRSA Screen - Final Complete 01/30/24 19:10 Voided Urine Urine Culture - Final Proteus vulgaris Escherichia coli Complete Problem List/Assessment/Plan Problem List/Assessment/Plan Assessment/Plan Patient on comfort care. delivery sales worker is working on getting hospice placement for the patient. Patient's daughter Mame and son-in-law Patel is aware of that. We had a long discussion with the family at bedside which were denying active treatment at this time and were wanting just comfort measures. Also spoke to son Anthony and saod he does not want to do any labs be done. Still waiting for hospice care to be arranged from [facility]. Acute hypoxic respiratory failure likely due to Gram-positive/negative bacterial pneumonia -initial chest x-ray was showing pulmonary edema with slight vascular congestion - CT scan of the chest, abdomen and pelvis which showed multifocal pulmonary edema and possible pneumonia. There was no acute findings involving abdomen or pelvis, colonic diverticulosis without diverticulitis -Patient completed IV abs in the ICU Sepsis likely due to pneumoniae and UTI -WBC still elevated at 15.6 -UA positive for UTI -Urine cult growed e coli and proteus vulgaris -patient completed antibiotics -No pressors at this time UTI -UA positive for UTI -Urine cult growed e coli and proteus vulgaris -patient completed antibiotics Acute normocytic normochromic anemia -hemoglobin better at 12.3 -ordered iron panel and ferritin. Iron panel came back low and ferritin on normal range most likely consistent with iron-deficiency anemia Hypokalemia -today potassium was 2.7, repleted potassium -monitor lab Hypernatremia -sodium this morning was 156 -ordered serum osmolality 316 CECILIA on CKD Stage IV -creatinine is 1.56, BUN 68 and GFR 27 -status post left nephrectomy due to renal cell carcinoma on jan 2020 -monitor kidney function -nephrology on board Type 2 diabetes mellitus -hemoglobin A1c was 7.2% -currently on sliding scale insulin -monitor blood glucose Goals of care discussed with the patient and family at bedside for >23min, D NR/DNI (confort measures) Plan discussed with Dr. Butler Plan discussed with: Patient, Daughter, Other (Family expressed that they do not want any further treatment and just one comfort measure, patient is DNR DNI) Plan discussed with: Daughter, Son (Daughter Mame, son Anthony, RN), Other (Son-in-law, daughter) Dietary Evaluation Review Comments: 1) Continue current plan of care Expected Outcomes/Goals: F/U in 2-3 days GENE CÁRDENAS RESIDENT Feb 08, 2024 11:37
[2024-02-08] MEDS: ACETAMINOPHEN 650 mg PER 20.3 mL UD GT PRN (21:39)
[2024-02-09 01:00] VITALS: BP 135/69; PULSE 146; RESP 44; TEMP 102; O2SAT 74
[2024-02-09 05:05] VITALS: BP 126/69; PULSE 140; RESP 44; TEMP 99.3; O2SAT 69
[2024-02-09 08:05] VITALS: RESP 32; O2SAT 89
[2024-02-09 09:00] VITALS: BP 128/72; PULSE 144; RESP 21; TEMP 102.1; O2SAT 77
[2024-02-09] MEDS: MORPHINE SULFATE INJ 2 MG/ml SYRG IV SCH (10:40)
[2024-02-09] MEDS: LORazepam 2MG/ML-1ML VIAL IV SCH (11:10)
[2024-02-09] MEDS ORDERED: GLYCOPYRROLATE 0.2 MG/ML 1ML VIAL IV PRN (14:15)
--- NOTE | 2024-02-09 15:29 | DVHDSRES ---
Discharge Summary Date of Admission Resident Creating Document: GENE CÁRDENAS Jan 30, 2024 at 21:26 Date of Discharge: Feb 09, 2024 Admitting Diagnosis Acute hypoxic respiratory failure likely due to Gram-positive/negative Labs/Diagnostic Data: Laboratory Results Test 02/08/24 05:23 02/06/24 11:53 02/06/24 07:23 02/06/24 03:35 White Blood Count 13.4 10^3/uL (4.4-10.8) Red Blood Count 4.24 10^6/uL (4.0-5.20) Hemoglobin 12.5 g/dL (12.2-16.2) Hematocrit 37.7 % (36.0-46.0) Mean Corpuscular Volume 89.0 fL (80.0-100.0) Mean Corpuscular Hemoglobin 29.4 pg (28.0-32.0) Mean Corpuscular Hemoglobin Concent 33.0 g/dL (32.0-36.0) Red Cell Distribution Width 16.8 % (11.8-14.3) Platelet Count 206 10^3/uL (140-450) Mean Platelet Volume 8.8 fL (6.9-10.8) Neutrophils (%) (Auto) 86.5 % (37.0-80.0) Lymphocytes (%) (Auto) 4.7 % (10.0-50.0) Monocytes (%) (Auto) 8.4 % (0.0-12.0) Eosinophils (%) (Auto) 0.3 % (0.0-7.0) Basophils (%) (Auto) 0.1 % (0.0-2.0) Neutrophils # (Auto) 11.6 10 ^3/uL (1.6-8.6) Lymphocytes # (Auto) 0.6 10 ^3/uL (0.4-5.4) Monocytes # (Auto) 1.1 10 ^3/uL (0-1.3) Eosinophils # (Auto) 0 10 ^3/uL (0-0.8) Basophils # (Auto) 0 10 ^3/uL (0-0.2) Nucleated Red Blood Cells 0.1 % Sodium Level 158 mmol/L (136-145) Potassium Level 3.7 mmol/L (3.5-5.1) Chloride Level 117 mmol/L (98-107) Carbon Dioxide Level 29 mmol/L (20-31) Anion Gap 12 (5-15) Blood Urea Nitrogen 71 mg/dL (9-23) Creatinine 1.75 mg/dL (0.550-1.02) Glomerular Filtration Rate Calc 29 mL/min (>90) BUN/Creatinine Ratio 40.6 (10.0-20.0) Serum Glucose 186 mg/dL (74-106) Calcium Level 9.9 mg/dL (8.7-10.4) Magnesium Level 2.6 mg/dL (1.6-2.6) POC Glucose 197 mg/dl (70-106) Blood Gas Specimen Type Arterial Blood Gas Sample Site Right radial Blood Gas Patient Temperature 37.0 Arterial Blood Date Drawn [id number] Arterial Blood pH 7.454 (7.350-7.450) Arterial Blood Partial Pressure CO2 34.3 mmHg (32.0-45.0) Arterial Blood Partial Pressure O2 74.1 mmHg (83.0-108.0) Arterial Blood HCO3 23.5 mmol/L (21.0-28.0) Arterial Blood Oxygen Saturation 94.5 % (94.0-98.0) Arterial Blood Base Excess 0.1 mmol/L (-2.0-3.0) Arterial Blood Oxyhemoglobin 94.0 % (94.0-98.0) Arterial Blood Carboxyhemoglobin 0.3 % (0.5-1.5) Arterial Blood Methemoglobin 0.2 % (0.0-1.5) Alexei Test Modified Blood Gas Total Hemoglobin 12.00 g/dL (12.0-16.0) Blood Gas Set Respiration Rate 16.0 Blood Gas Modality Vent - ac FiO2 % 45.0 Blood Gas Tidal Volume 400.0 Blood Gas PEEP or CPAP 5.0 Phosphorus Level 3.9 mg/dL (2.4-5.1) Test 02/04/24 03:17 02/01/24 03:27 01/31/24 18:48 01/31/24 16:12 Differential Total Cells Counted 100.0 (100) Neutrophils % (Manual) 92 (37.0-80.0) Band Neutrophils % (Manual) 5 Lymphocytes % (Manual) 2 (10.0-50.0) Monocytes % (Manual) 1 (0-12) Eosinophils % (Manual) 0 (0-7) Basophils % (Manual) 0 (0.0-2.0) Metamyelocytes % (manual) 0 Myelocytes % (Manual) 0 Promyelocytes % (Manual) 0 Blast Cells % (Manual) 0 Reactive Lymphocytes 0 Platelet Estimate Decreased Large Platelets Few Anisocytosis (manual) Slight Stomatocytes Few Schistocytes Few Random Vancomycin Level 12.4 ug/mL (5-10) Sayner Cells Few Total Bilirubin 0.3 mg/dL (0.2-1.0) Aspartate Amino Transferase (AST) 39 U/L (13-40) Alanine Aminotransferase (ALT) 15 U/L (7-40) Alkaline Phosphatase 42 U/L (46-116) Total Protein 5.6 g/dL (5.7-8.2) Albumin 3.3 g/dL (3.2-4.8) Blood Gas Spontaneous Rate 21 Blood Gas Liter Flow 15.00 Blood Gas Critical Value Read Back Yes Blood Gas Notified Whom Dr. hermila obrien Blood Gas Notified Time [id number] Blood Gas Notified By Darleen dougherty probation agent Test 01/31/24 04:30 01/31/24 00:50 01/30/24 21:35 01/30/24 19:10 Iron Level 35 ug/dL (50-170) Total Iron Binding Capacity 290 ug/dL (250-425) Percent Iron Saturation 12.1 % (15-50) Ferritin 124.4 ng/mL (10-291) Lactic Acid Level 4.3 mmol/L (0.4-2.0) Prothrombin Time 10.3 sec (9.3-11.8) Prothrombin Time INR 0.97 (0.9-1.15) Activated Partial Thromboplast Time 20.8 SEC (24.5-34.5) Hemoglobin A1c 7.3 % A1C (<5.7) Serum Osmolality 316 mOsm/kg (278-298) B-Type Natriuretic Peptide 164.87 pg/mL (0-100) Vitamin B12 Level 1268 pg/mL (211-911) Vitamin D 25-Hydroxy 38.6 ng/mL (30.0-100) Thyroid Stimulating Hormone (TSH) 0.86 uIU/mL (0.55-4.78) Urine Color Light-yellow (Yellow) Urine Clarity Clear (Clear) Urine pH 5.0 (5.0-9.0) Urine Specific [place] 1.015 (1.001-1.035) Urine Protein Negative (Negative) Urine Ketones Negative (Negative) Urine Blood 1+ /uL (Negative) Urine Nitrite Negative (Negative) Urine Bilirubin Negative (Negative) Urine Urobilinogen Normal mg/dL (Negative) Urine Leukocyte Esterase 1+ /uL (Negative) Urine RBC 2 /hpf (0 - 4) Urine WBC 11 /hpf (0 - 5) Urine Squamous Epithelial Cells Few /hpf (<5) Urine Bacteria Few /hpf (None Seen) Urine Hyaline Casts Few /lpf (0 - 2) Urine Osmolality 508 mOsm/kg Urine Creatinine 43.44 mg/dL (30.0-125.0) Urine Sodium 45 mmol/L (40-220) Urine Glucose Normal mg/dL (Normal) Urine Total Protein 16.3 mg/dL (1-14) Urine Opiates Screen Pos (NEGATIVE) Urine Fentanyl Screen Neg (NEGATIVE) Urine Barbiturates Screen Neg (NEGATIVE) Urine Phencyclidine Screen Neg (NEGATIVE) Urine Amphetamines Screen Neg (NEGATIVE) Urine Benzodiazepines Screen Neg (NEGATIVE) Urine Cocaine Screen Neg (NEGATIVE) Urine Cannabinoids Screen Neg (NEGATIVE) Test 01/30/24 18:27 Influenza Type A Antigen Negative (Negative) Influenza Type B Antigen Negative (Negative) SARS-CoV-2 Antigen (Rapid) Negative (NEGATIVE) Other Laboratory Tests 02/08/24 05:23 Brief Hx & Hospital Course: This is an 78 years old female with a PMH of HTN, HLD, left renal cell carcinoma with left nephrectomy performed on January of 2020, liver metastasis diagnosed in February of 2023 which started immunotherapy on October 10, 2023 and had three sessions (October 09, October 30 and November 21 2023). The patient also has a recent history of C diff and diarrhea on November 23, 2023 which was successfully treated and on December 26, 2023 when back to the hospital for diarrhea, fatigue and electrolyte imbalances. Now, the patient presented to the ED with the chief complaints of shortness of breathe for the last 3 days. Patient reported she has been feeling very weak since she started immunotherapy. Patient reported for the last 3 days she has been having no energy to eat and walk, associated with worsening of shortness of breath and generalized weakness without fever, nausea, vomiting, chest pain, diaphoresis and other associated symptoms. Patient also reported she had some diarrhea , noted some blood in stool by her daughter earlier to admission. Initial labs showed a WBC of 17.3, lactic acidosis at 4.3, creatinine was 1.89 and BUN 81. Urinalysis was performed and came back suggesting UTI. Patient had also mild hyponatremia. Initial chest x-ray was showing signs of mild vascular congestion or pulmonary edema. Renal ultrasound was grossly unremarkable. The patient was started empirically on IV cefepime and doxycycline. Patient was admitted for further assessment and management. Patient was intubated due to acute respiratory failure on jan 30 and it was admitted to the ICU due to septic shock, talking with the family they decide DNR/ DNI, patient was extubated on feb 04 and downgrade to the floor to continue comfort measures, patient will go to hospice [facility] as requested for the family General examination- patient unconscious, no eye opening Cardiovascular- S1-S2 audible, rate and rhythm regular, no murmur Respiratory- bilateral lung crackles+ Gastrointestinal-nontender, bowel sound+. Nondistended Case discussed with Dr Saha Consults/Reason for consult nephrology: Acute kidney injury superimposed Chronic Kidney Disease stage IV secondary to dehydration Operations or Procedures Indications: Pneumonia, Possible mucous plugging. Medicines: See COIL BU[employer]DER notes. Complications: None Procedure: Patient medications and allergies reviewed. The risks and benefits of the procedure and the sedation options and risk were discussed with the patient prior to procedure. All questions were answered and informed consent was obtained. Patient identification and proposed procedure were verified prior to the procedure by the physician, and a nurse, and the respiratory therapist in ICU room. The heart rate, respiratory rate, oxygen saturations, blood pressure, adequacy of pulmonary ventilation, and response to care were monitored throughout the procedure. The physical status of the patient was reassessed after the procedure. After obtaining informed consent, the bronchoscope was introduced through the endotracheal tube and advanced into the trachea bronchial tree of both lungs. The procedure was accomplished without difficulty. The patient tolerated the procedure well. Findings: The trachea is in normal caliber. The abhijit is sharp. The tracheobronchial tree of the right lung was examined to at least the first subsegmental level. The bronchial mucosa and anatomy in the right lung are normal. There are no endobronchial lesions. There was scant whitish secretions in right main stem bronchus. Right middle lobe (RML) Bronchoalveolar lavage (BAL) obtained. RML BAL sent for gram stain and culture. The left upper lobe, lingula, and left lower lobe were examined to at least the first subsegmental level. Bronchial mucosa and anatomy in the left upper lobe and lingula are normal. There were no endobronchial lesions. There was scant whitish secretions from left main stem bronchus. There was no active bleeding at the completion of the procedure. Estimated blood loss: Less than 5 mL. Impression: Scant secretion in left and right mainstem bronchus Right Middle Lobe (RML) Bronchoalveolar lavage (BAL) performed Recommendation: Follow-up RML BAL results. Procedure codes: 03615, bronchoscopy, rigid and flexible, including fluoroscopic guidance, one performed; with bronchial endobronchial broncho-alveolar lavage, single or multiple sites Condition at Discharge: Poor Final Diagnosis/Problems List Acute hypoxic respiratory failure likely due to Gram-positive/negative bacterial pneumonia Sepsis likely due to pneumoniae and UTI UTI Acute normocytic normochromic anemia Hypokalemia Hypernatremia CECILIA on CKD Stage IV Type 2 diabetes mellitus Discharge Disposition: Hospice- Medical Facility Discharge Instruct/Medications Diet: See Comment Diet comment: patient is going to hospice comfort measures Activity: No Restrictions, As Tolerated Follow Up/Referral: patient is going to hospice comfort measures Medications: patient is going to hospice , comfort measures Discharge Statement: "Patient was advised to return to the ER or call 911 if any headaches, dizziness, shortness of breath, chest pain, abdominal pain, bleeding, fevers, or worsening of medical condition. Patient was counseled about treatment plan, medications, possible side effects, patientverbalized understanding. All questions were answered to the best of my ability. This discharge took greater then 30 minutes in planning, reviewing documentation, counseling the patient, and discussing with other team members." ASSESSMENT ASSESSMENT Assessment pneumonia metastasic renal cell carcinoma Date of Service: Feb 09, 2024 Billing Provider: ANA SAHA MD Common Visit Codes: 53518-IZX/OBS DISCH DAY >30min Coding Comment Comment Attending Attestation I saw and evaluated the patient. I reviewed the residents note and agree with findings and plan as documented in the residents note except as documented below. Patient on comfort care, for discharge to hospice No blood draws, decrease vital sign checks IV morphine for respiratory discomfort, Ativan for agitation, glycopyrrolate for RUDI Ramos RESIDENT Feb 09, 2024 15:29 ANA SAHA MD Feb 09, 2024 19:07
[2024-02-09 19:50] VITALS: PULSE 126; RESP 34; O2SAT 88
[2024-02-09 21:00] VITALS: BP 128/80; PULSE 135; RESP 21; TEMP 98.5; O2SAT 87
[2024-02-10 00:52] VITALS: BP 121/74; PULSE 126; RESP 20; TEMP 97.6; O2SAT 89
[2024-02-10 05:00] VITALS: BP 117/77; PULSE 122; RESP 20; TEMP 97.4; O2SAT 90
[2024-02-10 07:34] VITALS: RESP 32; O2SAT 89
[2024-02-10] MEDS: MORPHINE SULFATE 4 MG/ML SYR/VIAL IV SCH (10:28)
[2024-02-10 11:10] VITALS: BP 112/67; PULSE 122; RESP 30; TEMP 36.3; O2SAT 80
--- NOTE | 2024-02-10 12:48 | DVHPNRES ---
Progress Note Date Seen: Feb 10, 2024 Resident Creating Document: RUDI MCGREGOR RESIDENT Has the PT tested + for MRSA If YES, has PT been informed?: No Medical Necessity Reason Pt with a Central, PICC or Fol: Yes The following are medically ne: Patterson Catheter Reason for patterson catheter: Strict I&O Subjective Review of Systems This is an 78 years old female with a PMH of HTN, HLD, left renal cell carcinoma with left nephrectomy performed on January of 2020, liver metastasis diagnosed in February of 2023 which started immunotherapy on October 10, 2023 and had three sessions (October 09, October 30 and November 21 2023). The patient also has a recent history of C diff and diarrhea on November 23, 2023 which was successfully treated and on December 26, 2023 when back to the hospital for diarrhea, fatigue and electrolyte imbalances. Now, the patient presented to the ED with the chief complaints of shortness of breathe for the last 3 days. Patient reported she has been feeling very weak since she started immunotherapy. Patient reported for the last 3 days she has been having no energy to eat and walk, associated with worsening of shortness of breath and generalized weakness without fever, nausea, vomiting, chest pain, diaphoresis and other associated symptoms. Patient also reported she had some diarrhea , noted some blood in stool by her daughter earlier to admission. Initial labs showed a WBC of 17.3, lactic acidosis at 4.3, creatinine was 1.89 and BUN 81. Urinalysis was performed and came back suggesting UTI. Patient had also mild hyponatremia. Initial chest x- ray was showing signs of mild vascular congestion or pulmonary edema. Renal ultrasound was grossly unremarkable. The patient was started empirically on IV cefepime and doxycycline. Patient was admitted for further assessment and management. Patient was intubated due to acute respiratory failure on jan 30 and it was admitted to the ICU due to septic shock, talking with the family they decide DNR/ DNI, patient was extubated on feb 04 and downgrade to the floor to continue comfort measures, patient will go to hospice [facility] as requested for the family Objective vital signs Vital Sign Date Time Temp Pulse Resp B/P (MAP) Pulse Ox O2 Delivery O2 Flow Rate FiO2 02/10/24 12:24 126 26 112/59 02/10/24 11:10 36.3 80 02/10/24 07:34 Nasal Cannula* 2 28 Total Intake and Output 02/09/24 02/09/24 02/10/24 15:00 23:00 07:00 Intake Total 0 ml 0 ml 0 ml Output Total 300 ml 250 ml Balance 0 ml -300 ml -250 ml medications Current Medications Medications Dose Ordered Sig/Porfirio Route Start Time Stop Time Status Last Admin Dose Admin Famotidine 20 mg Q12HR IV 01/31/24 22:00 UNV Dextrose 50 ml UD PRN IV 02/02/24 07:45 Cancel Enteral Nutritional Formula 1,000 ml 30ML/HR GT 02/02/24 16:45 Cancel Hydrocortisone Sodium Succinate 100 mg DAILY IV 02/07/24 10:00 Cancel Acetaminophen 650 mg Q6HP PRN GT 02/08/24 18:00 02/08/24 21:39 650 MG Lorazepam 2 mg Q4HR IV 02/09/24 10:15 02/10/24 10:26 2 MG Glycopyrrolate 1 mg PRN PRN IV 02/09/24 14:15 Morphine Sulfate 4 mg Q2HR IV 02/10/24 09:51 02/10/24 12:24 4 MG Examination General examination- patient unconscious, no eye opening Cardiovascular- S1-S2 audible, rate and rhythm regular, no murmur Respiratory- bilateral lung crackles+ Gastrointestinal-nontender, bowel sound+. Nondistended laboratory and microbiology Laboratory Tests 02/08/24 05:23 Test 02/08/24 05:23 Range/Units Serum Glucose 186 H 74-106 mg/dL Microbiology Date/Time Source Procedure Growth Status 02/04/24 12:55 Sputum Expectorated Sputum Gram Stain - Final Complete 02/04/24 12:55 Respiratory Culture - Final Presumptive Susana albicans Complete 01/31/24 18:52 Blood Blood Culture - Final NO GROWTH AFTER 5 DAYS OF INCUBATION. Complete 01/31/24 18:30 Nose MRSA Screen - Final Complete 01/30/24 19:10 Voided Urine Urine Culture - Final Proteus vulgaris Escherichia coli Complete Problem List/Assessment/Plan Problem List/Assessment/Plan Acute hypoxic respiratory failure likely due to Gram-positive/negative bacterial pneumonia Sepsis likely due to pneumoniae and UTI UTI Acute normocytic normochromic anemia Hypokalemia Hypernatremia CECILIA on CKD Stage IV Type 2 diabetes mellitus Patient was intubated due to acute respiratory failure on jan 30 and it was admitted to the ICU due to septic shock, talking with the family they decide DNR/ DNI, patient was extubated on feb 04 and downgrade to the floor to continue comfort measures, patient will go to hospice [facility] as requested for the family Pt left the hospital at 2pm Pt is comfort measures: morphine 4 mg q2h . ativan 2 mg q4h Case was discussed extensively with the family Case discussed with Dr Saha Time spent on care 23 min Plan discussed with: Daughter (rn), Son, Other My Orders My Orders Orders - RUDI MCGREGOR RESIDENT Procedure Category Date Status Time Discharge DISCHARGE 02/09/24 Transmitted 13:18 Dietary Evaluation Review Comments: 1) Continue current plan of care Expected Outcomes/Goals: F/U in 2-3 days Date of Service: Feb 10, 2024 Billing Provider: ANA SAHA MD Common Visit Codes: 35923-UMX/OBS DISCH DAY >30min Coding Comment Comment Attending Attestation I saw and evaluated the patient. I reviewed the residents note and agree with findings and plan as documented in the residents note except as documented below. Patient on comfort care status post compassionate extubation, to transferred to hospice. Look at discharge summary for further information RUDI MCGREGOR RESIDENT Feb 10, 2024 12:48 ANA SAHA MD Feb 10, 2024 19:58
[2024-02-10 12:54] VITALS: BP 112/70; PULSE 123; RESP 28
== END 2024-02-10 14:00 | disposition hospice, home (50) | DRG 870 ==
LOC: ER 16:47 → EDBD 16:47 → OVERFLOW 21:26 → TELE 22:43 → TELE-CENTR 22:52 → ICU WEST 01-31 16:29 → EAST 02-06 23:35
PROVIDERS: ADMIT Student in an Organized Health Care Education/Training Program; ATTEND Student in an Organized Health Care Education/Training Program
PROC: 5A1955Z Respiratory Ventilation, Greater than 96 Consecutive Hours (ICD-10-PCS; principal; 2024-01-31)
PROC: 0BH18EZ Insertion of Endotracheal Airway into Trachea, Via Natural or Artificial Opening Endoscopic (ICD-10-PCS; 2024-01-31)
PROC: 02HV33Z Insertion of Infusion Device into Superior Vena Cava, Percutaneous Approach (ICD-10-PCS; 2024-01-31)
PROC: B548ZZA Ultrasonography of Superior Vena Cava, Guidance (ICD-10-PCS; 2024-01-31)
PROC: 03HY33Z Insertion of Infusion Device into Upper Artery, Percutaneous Approach (ICD-10-PCS; 2024-01-31)
PROC: 0B9D8ZX Drainage of Right Middle Lung Lobe, Via Natural or Artificial Opening Endoscopic, Diagnostic (ICD-10-PCS; 2024-01-31)
PROC: 5A09357 Assistance with Respiratory Ventilation, Less than 24 Consecutive Hours, Continuous Positive Airway Pressure (ICD-10-PCS; 2024-01-31)
PROC: 30233N1 Transfusion of Nonautologous Red Blood Cells into Peripheral Vein, Percutaneous Approach (ICD-10-PCS; 2024-02-01)
DX: A41.50 Gram-negative sepsis, unspecified (principal); I50.33 Acute on chronic diastolic (congestive) heart failure; J15.69 Pneumonia due to other Gram-negative bacteria; J96.01 Acute respiratory failure with hypoxia; J15.9 Unspecified bacterial pneumonia; N17.0 Acute kidney failure with tubular necrosis; E87.1 Hypo-osmolality and hyponatremia; I13.0 Hypertensive heart and chronic kidney disease with heart failure and stage 1 through stage 4 chronic kidney disease, or unspecified chronic kidney disease; N18.4 Chronic kidney disease, stage 4 (severe); N39.0 Urinary tract infection, site not specified; E87.4 Mixed disorder of acid-base balance; E87.0 Hyperosmolality and hypernatremia; Z20.822 Contact with and (suspected) exposure to COVID-19; D63.1 Anemia in chronic kidney disease; E86.0 Dehydration; E87.5 Hyperkalemia; Z66 Do not resuscitate; B96.5 Pseudomonas (aeruginosa) (mallei) (pseudomallei) as the cause of diseases classified elsewhere; E78.5 Hyperlipidemia, unspecified; E11.65 Type 2 diabetes mellitus with hyperglycemia; E11.22 Type 2 diabetes mellitus with diabetic chronic kidney disease; E87.6 Hypokalemia; D50.9 Iron deficiency anemia, unspecified; Z85.05 Personal history of malignant neoplasm of liver; Z90.5 Acquired absence of kidney; Z85.528 Personal history of other malignant neoplasm of kidney; Z82.3 Family history of stroke; Z80.0 Family history of malignant neoplasm of digestive organs
CPT/HCPCS: 36415; 36600; 71045; 71250; 74176; 76775; 80048; 80053; 80202; 80307; 81001; 82306; 82565; 82570; 82607; 82728; 82805; 82962; 83036; 83540; 83550; 83605; 83735; 83880; 83930; 83935; 84100; 84132; 84156; 84300; 84443; 85007; 85014; 85018; 85025; 85027; 85610; 85730; 86850; 86900; 86901; 86920; 87040; 87070; 87077; 87081; 87086; 87088; 87186; 87205; 87426; 87804; 93005; 93306; 94002; 94003; 94640; 94660; 99291; G0378; J1756; J1815; J2405; J2470; J2704; J3480; J3490; J7060